=== PATIENT | female | born 1940 | race Two or more races ===

== ENCOUNTER 2017-07-29 15:37 | Inpatient (IN) | payer MEDICARE, OTHER ==
[2017-07-29] VITALS (16 sets, daily range): BP systolic 124–157; BP diastolic 44–96
[~2017-07-29] VITALS: Ht 160 cm; Wt 77.3 kg
--- NOTE | 2017-07-29 15:40 | NUR ---
PETER FROM [facility] DT SOB SINCE THIS AM. PATIENT RECEIVED CPAP, PER REPORT , PATIENT WAS SATING 70S ON ROOM AIR. PATIENT IN MILD DISTRESS. SKIN IS WARM TO TOUCH AND NON DIAPHORETIC. PATIENT IS AFEBRILE. VSS
--- NOTE | 2017-07-29 15:41 | NUR ---
MD ATWOOD AT
[2017-07-29] MEDS ORDERED: NITROGLYCERIN 0.4 MG/TAB BOTTLE SL ONE (16:00)
[2017-07-29] MEDS ORDERED: NTG 50 MG/D5W250 ML BOTTL 250 ML IV ONE ×2 (16:02→17:00)
[2017-07-29] MEDS ORDERED: NITROGLYCERIN 0.4 MG/TAB BOTTLE ONE (16:02)
--- NOTE | 2017-07-29 16:02 | NUR ---
R WRIST G 20 IV STARTED. BLOOD TESTS COLELCTED AND SEND TO LAB.
[2017-07-29 16:03] LABS: BASOPHILS # (AUTO) 0.2 /CMM (0.0-0.2); BASOPHILS % (AUTO) 2.2 % (0.0-2.0); EOSINOPHILS % (AUTO) 1.9 % (0.0-6.0); HEMATOCRIT 26 % (33-45); HEMOGLOBIN 8.5 g/dL (11.5-14.8); LYMPHOCYTES # (AUTO) 0.4 /CMM (0.8-4.8); LYMPHOCYTES % (AUTO) 3.5 % (20.0-44.0); MEAN CORPUSCULAR HGB CONC 33 g/dl (31.0-36.0); MEAN CORPUSCULAR VOLUME 91 fL (82-100); MONOCYTES # (AUTO) 0.9 /CMM (0.1-1.30); MONOCYTES % (AUTO) 8.3 % (2.0-12.0); NEUTROPHILS # (AUTO) 9.4 /CMM (1.8-8.9); NEUTROPHILS % (AUTO) 84.1 % (43.0-81.0); PLATELET COUNT (AUTO) 235 /CMM (150-450); RDW COEFFICIENT OF VARIATION 16.3 (11.5-15.0); RED BLOOD CELL COUNT(AUTO) 2.81 MIL/uL (4.0-5.2); WHITE BLOOD COUNT (AUTO) 11.1 K/uL (4.3-11.0)
[2017-07-29 16:15] LABS: INR 1.3 (0.85-1.15)
--- NOTE | 2017-07-29 16:15 | NUR ---
URINE SAMPLE COLLECTED FROM BRADSHAW AND SEND TO [facility]
[2017-07-29 16:21] LABS: TROPONIN I < 0.017 ng/mL (0.00-0.056)
[2017-07-29 16:27] LABS: APPEARANCE,URINE Clear (CLEAR); BILIRUBIN,URINE Negative (NEGATIVE); BLOOD, URINE Trace-intact Ery/uL (NEGATIVE); COLOR,URINE Yellow (YELLOW); KETONES,URINE Negative (NEGATIVE); LEUKOCYTE ESTERASE ,URINE Trace (NEGATIVE); NITRITE, URINE Negative (NEGATIVE); PROTEIN,URINE 100 mg/dl (NEGATIVE); UGLUCOSE 100 MG/DL mg/dL (NEGATIVE)
[2017-07-29 16:28] LABS: CHOLESTEROL 114 mg/dL (<200); HDL CHOLESTEROL 55 mg/dL (40-60); LDL 51 mg/dL (0-99); TRIGLYCERIDES 58 mg/dL (30-150)
[2017-07-29] MEDS ORDERED: ACET-868 PO (16:30)
[2017-07-29] MEDS ORDERED: BISA10SU8 RC (16:30)
[2017-07-29] MEDS ORDERED: CYCL30DR EACHEYE (16:30)
[2017-07-29] MEDS ORDERED: CLOP75TA15 PO (16:30)
[2017-07-29] MEDS ORDERED: APIX5TAB PO (16:30)
[2017-07-29] MEDS ORDERED: BIMA2.5D5 EACHEYE (16:30)
[2017-07-29] MEDS ORDERED: AMIO200T4 PO (16:30)
[2017-07-29] MEDS ORDERED: CHOL200026 PO (16:30)
[2017-07-29] MEDS ORDERED: ATOR40TA PO (16:30)
[2017-07-29] MEDS ORDERED: NA P133E RC (16:30)
[2017-07-29] MEDS ORDERED: INSU100V7 SQ (16:30)
[2017-07-29] MEDS ORDERED: PANT40TA2 PO (16:30)
[2017-07-29] MEDS ORDERED: ALLO300T2 PO (16:30)
[2017-07-29] MEDS ORDERED: FURO20TA4 PO (16:30)
[2017-07-29] MEDS ORDERED: CARV12.5 PO (16:30)
[2017-07-29] MEDS ORDERED: AMLO2.5T3 PO (16:30)
[2017-07-29] MEDS ORDERED: MAGN400O6 PO (16:30)
[2017-07-29] MEDS ORDERED: DOCU-141 PO (16:30)
[2017-07-29] MEDS ORDERED: LEVO50TA8 PO (16:30)
[2017-07-29] MEDS ORDERED: FERR325T23 PO (16:30)
[2017-07-29] MEDS ORDERED: POLY17PO4 PO (16:30)
[2017-07-29 16:32] LABS: BACTERIA,URINE Few /HPF (None Seen); SQUAMOUS EPITHELIAL CELL,UR Few /HPF (None Seen)
[2017-07-29 16:34] LABS: ALANINE AMINOTRANSFERASE 37 U/L (12-78); ALBUMIN 2.8 g/dL (3.4-5.0); ALKALINE PHOSPHATASE 133 U/L (46-116); ASPARTATE AMINOTRANSFERASE 31 U/L (15-37); B-TYPE NATRIURETIC PEPTIDE 7765 PG/ML (0-125); BILIRUBIN,TOTAL 0.4 mg/dL (0.2-1.0); CALCIUM, SERUM 9.2 mg/dL (8.5-10.1); CARBON DIOXIDE 31 mmol/L (21-32); CHLORIDE 94 mmol/L (98-107); CREATININE 1.7 mg/dL (0.6-1.3); GLUCOSE 320 mg/dL (74-106); MAGNESIUM 1.6 mg/dL (1.8-2.4); SODIUM SERUM 129 mmol/L (136-145); TOTAL PROTEIN, SERUM 7.3 g/dL (6.4-8.2); UREA NITROGEN, BLOOD 44 mg/dL (7-18)
[2017-07-29] MEDS ORDERED: FUROSEMIDE 40 MG/4 ML VIAL ONE (17:27)
[2017-07-29] MEDS ORDERED: FUROSEMIDE 40 MG/4 ML VIAL IV ONE (17:30)
[2017-07-29] MEDS ORDERED: ACETAMINOPHEN 650 MG/SUPP.RECT RC PRN (18:00)
[2017-07-29] MEDS ORDERED: ONDANSETRON HCL/PF 4 MG/2 ML VIAL IVP PRN (18:00)
[2017-07-29] MEDS ORDERED: ACETAMINOPHEN 325 MG TABLET PO PRN ×2 (18:00→20:00)
[2017-07-29] MEDS ORDERED: NOREPINEPHRINE 8 MG in IV D5W 500 ML IV PRN (18:00)
[2017-07-29] MEDS ORDERED: DEXTROSE 50%-WATER 50 ML DISP.SYRIN IV PRN (18:30)
[2017-07-29] MEDS: PANTOPRAZOLE 40 MG VIAL IV SCH (18:35)
--- NOTE | 2017-07-29 18:45 | NUR ---
RISK COMPLIANCE ANALYST RECEIVED PATIENT AWAKE FROM ER, POOR CONCENTRATION WITH ON GOING NITRO DIP RUNNING AT 100 MCGS AFEBRILE PLACED ON BIPAP ONCE TRANSFERRED TO BED CLEANED AND WASHED PATIENT PUT HER ON COMFORTABLE POSITION WITH BRADSHAW CATHETER DRAINING TO YELLOWISH URINE ADEQUATE IN AMOUNT ENDORSED
[2017-07-29] MEDS ORDERED: Magnesium 1GM/D5W 100ML PREMIX 100 ML IV SCH (19:00)
[2017-07-29] MEDS ORDERED: NTG 50 MG/D5W250 ML BOTTL 250 ML IV PRN (19:00)
--- NOTE | 2017-07-29 19:00 | NUR ---
RN INITIAL NOTES RECEIVED PT AWAKE ON BED, A/O X2. ON BIPAP WITH SETTINGS 15/5, RATE 12, FIO2 60%, SATURATING WELL, NO S/S OF RESP DISTRESS. CURRENTLY SR ON THE MONITOR, HR 60'S. BRADSHAW CATH IN PLACE. RIGHT WRIST 20G AND LEFT HAND 20G WITH NITRO DRIP @ 50MCG/MIN, IV LINES FLUSHED AND PATENT, NO S/S OF INFILTRATION/INFECTION, DRESSINGS CDI. BED LOW AND LOCKED, SIDERAILS UP, CALL LIGHT WITHIN REACH, BED ALARM ON. WILL MONITOR
[2017-07-29] MEDS ORDERED: CEFTRIAXONE 1 G in IV NS 0.9% 50 ML IV SCH (20:00)
[2017-07-29] MEDS ORDERED: BISACODYL SUPP (10 MG) 10 MG/SUPP.RECT SUPP.RECT RC PRN (20:00)
[2017-07-29] MEDS ORDERED: INSULIN GLARGINE, 100 UNIT/ML CARTRIDGE SQ ONE (20:18)
[2017-07-29] MEDS ORDERED: ALBUTEROL FS 2.5 MG/0.5 ML VIAL.NEB NEB PRN (21:00)
[2017-07-29] MEDS ORDERED: IPRATROPIUM NEB FS 0.5 MG/2.5 ML AMPUL.NEB NEB PRN (21:00)
--- NOTE | 2017-07-29 21:21 | NUR ---
RN NOTES CALLED ON-CALL SHARED SERVICES MANAGER TAYLOR IN REGARDS TO THE PATIENT'S CURRENT HEMATURIA. ALSO INFORMED HER OF CURRENT HGB 8.5, HCT 26, AND PATIENT'S ELIQUIS 5MG AND PLAVIX 75MG SCHEDULED FOR TOMORROW 0900. ALSO INFORMED HER OF PATIENT'S LOWER BACK PAIN. PER SHARED SERVICES MANAGER, SHE WILL D/C ELIQUIS AND PLAVIX, ORDER STOOL OB, NORCO 5-325 Q6H PRN, AND STAT CBC.
[2017-07-29] MEDS ORDERED: HYDROCODONE/APAP 5/325MG 1 EACH TABLET PO PRN (21:30)
[2017-07-29] MEDS ORDERED: PIPERACILLIN /TAZOBACTAM 2.25 G VIAL IV ONE (21:38)
[2017-07-29 21:45] LABS: BASOPHILS % (AUTO) 0.2 % (0.0-2.0); EOSINOPHILS % (AUTO) 1.9 % (0.0-6.0); HEMATOCRIT 24 % (33-45); HEMOGLOBIN 7.7 g/dL (11.5-14.8); LYMPHOCYTES # (AUTO) 0.6 /CMM (0.8-4.8); MEAN CORPUSCULAR HGB CONC 33 g/dl (31.0-36.0); MEAN CORPUSCULAR VOLUME 91 fL (82-100); MONOCYTES # (AUTO) 0.9 /CMM (0.1-1.30); MONOCYTES % (AUTO) 8.5 % (2.0-12.0); NEUTROPHILS # (AUTO) 9.4 /CMM (1.8-8.9); NEUTROPHILS % (AUTO) 84.4 % (43.0-81.0); PLATELET COUNT (AUTO) 219 /CMM (150-450); RDW COEFFICIENT OF VARIATION 16.6 (11.5-15.0); RED BLOOD CELL COUNT(AUTO) 2.58 MIL/uL (4.0-5.2); WHITE BLOOD COUNT (AUTO) 11.1 K/uL (4.3-11.0)
[2017-07-29] MEDS: PIPERACILLIN /TAZOBACTAM 2.25 G in IV NS 0.9% 50 ML IV SCH (21:52)
[2017-07-29] MEDS ORDERED: BIMATOPROST 2.5 ML DROPS OP SCH (22:00)
[2017-07-29] MEDS ORDERED: ZOLPIDEM TARTRATE 5 MG TABLET PO PRN (22:00)
[2017-07-29] MEDS ORDERED: FUROSEMIDE 20 MG/2 ML VIAL IV ONE (22:00)
--- NOTE | 2017-07-29 22:00 | NUR ---
RN NOTES NOTIFIED TEMPERATURE REGULATOR PYROMETER TAYLOR OF CURRENT HGB 7.7 AND HCT 24 DUE TO HEMATURIA. PER TEMPERATURE REGULATOR PYROMETER, TRANSFUSE 1 UNIT PRBC AND GIVE 20MG LASIX DURING TRANSFUSION. WILL OBTAIN CONSENT FROM THE PATIENT WELL
[2017-07-29] MEDS: BLOOD SUGAR DIAGNOSTIC 1 EACH STRIP VI SCH (22:11)
[2017-07-29] MEDS: *INSULIN REGULAR(HUMULIN R)HUM 100 UNIT/ML VIAL SQ PRN (22:12)
[2017-07-29] MEDS: ATORVASTATIN 40 MG TABLET PO SCH (22:12)
[2017-07-29] MEDS: INSULIN GLARGINE, 100 UNIT/ML CARTRIDGE SQ SCH (22:12)
[2017-07-29] MEDS: DOCUSATE SODIUM 100 MG CAPSULE PO SCH (22:13)
[2017-07-29 22:24] LABS: IRON, SERUM 14 ug/dl (50-175); TOTAL IRON BINDING CAPACITY 206 ug/dl (250-450)
[2017-07-30] VITALS (52 sets, daily range): BP systolic 108–169; BP diastolic 49–100
[2017-07-30] MEDS ORDERED: FUROSEMIDE 20 MG/2 ML VIAL IV ONE (02:30)
[2017-07-30] MEDS ORDERED: PIPERACILLIN /TAZOBACTAM 2.25 G VIAL IV ONE (04:17)
[2017-07-30] MEDS: PIPERACILLIN /TAZOBACTAM 2.25 G in IV NS 0.9% 50 ML IV SCH ×2 (04:20→12:03)
[2017-07-30 05:57] LABS: BASOPHILS % (AUTO) 0.1 % (0.0-2.0); EOSINOPHILS % (AUTO) 2.8 % (0.0-6.0); HEMATOCRIT 26 % (33-45); HEMOGLOBIN 8.4 g/dL (11.5-14.8); LYMPHOCYTES # (AUTO) 0.6 /CMM (0.8-4.8); LYMPHOCYTES % (AUTO) 6.4 % (20.0-44.0); MEAN CORPUSCULAR HGB CONC 32 g/dl (31.0-36.0); MEAN CORPUSCULAR VOLUME 90 fL (82-100); MONOCYTES # (AUTO) 0.8 /CMM (0.1-1.30); NEUTROPHILS # (AUTO) 8.2 /CMM (1.8-8.9); NEUTROPHILS % (AUTO) 82.7 % (43.0-81.0); PLATELET COUNT (AUTO) 209 /CMM (150-450); RDW COEFFICIENT OF VARIATION 19.5 (11.5-15.0); RED BLOOD CELL COUNT(AUTO) 2.91 MIL/uL (4.0-5.2); WHITE BLOOD COUNT (AUTO) 9.9 K/uL (4.3-11.0)
--- NOTE | 2017-07-30 06:00 | NUR ---
RN CLOSING NOTES PT REMAINS STABLE OF THE MOMENT. ALL DUE MEDS GIVEN, AM CARE PROVIDED. WILL ENDORSE BHARATH TO AM RN
[2017-07-30 06:33] LABS: ALANINE AMINOTRANSFERASE 38 U/L (12-78); ALBUMIN 2.6 g/dL (3.4-5.0); ALKALINE PHOSPHATASE 114 U/L (46-116); ASPARTATE AMINOTRANSFERASE 33 U/L (15-37); CALCIUM, SERUM 9.3 mg/dL (8.5-10.1); CARBON DIOXIDE 31 mmol/L (21-32); CHLORIDE 96 mmol/L (98-107); CREATININE 1.6 mg/dL (0.6-1.3); GLUCOSE 127 mg/dL (74-106); MAGNESIUM 1.9 mg/dL (1.8-2.4); POTASSIUM 4.6 mmol/L (3.5-5.1); SODIUM SERUM 131 mmol/L (136-145); TOTAL PROTEIN, SERUM 6.9 g/dL (6.4-8.2); UREA NITROGEN, BLOOD 41 mg/dL (7-18)
[2017-07-30 06:38] LABS: IRON, SERUM 25 ug/dl (50-175); TOTAL IRON BINDING CAPACITY 213 ug/dl (250-450)
[2017-07-30 06:42] LABS: CHOLESTEROL 102 mg/dL (<200); FERRITIN 258 ng/mL (8-388); HDL CHOLESTEROL 58 mg/dL (40-60); LDL 45 mg/dL (0-99); TRIGLYCERIDES 40 mg/dL (30-150)
--- NOTE | 2017-07-30 07:10 | NUR ---
RN INITIAL NOTES RECEIVED PT AWAKE, A/OX4, TAMAZIGHT SPEAKING. ON BIPAP. NO RESPIRATORY DISTRESS NOTED. NO SOB NOTED. NO SIGNS OF PAIN NOTED. IV LINES IN PLACE. ON NITRO DRIP AT 20MCG/MIN. FC IN PLACE. HEMATURIA NOTED. PT COMFORTABLE. CALL LIGHT WITHIN REACH. WILL MONITOR.
--- NOTE | 2017-07-30 07:31 | NUR ---
PATIENT REMOVED FROM BIPAP AND PLACED ON 12L SIMPLE MASK. PATIENT AWAKE, ALERT, NO SOB AT THIS TIME. WILL MONITOR CLOSELY
--- NOTE | 2017-07-30 08:05 | NUR ---
RN NOTES SEEN AND EXAMINED BY DR. LEONARDO. PT ON AT 5LPM VIA AK. HOB ELEVATED. REVIEWED H&P, CURRENT LAB VALUES AND CXR RESULT. PT ON NITRO DRIP. REVIEWED MEDS WITH NEW ORDERS MADE. AWAITING FOR ECHO. WILL CONTINUE TO MONITOR.
[2017-07-30] MEDS: PANTOPRAZOLE 40 MG VIAL IV SCH (08:14)
[2017-07-30] MEDS: AMIODARONE HCL 200 MG TABLET PO SCH (08:14)
[2017-07-30] MEDS: FUROSEMIDE 100 MG/10 ML VIAL IV SCH ×3 (08:14→17:14)
[2017-07-30] MEDS: AMLODIPINE BESYLATE 2.5 MG TABLET PO SCH (08:14)
[2017-07-30] MEDS: CHOLECALCIFEROL 1,000 UNIT TABLET (VIT D3) PO SCH (08:14)
[2017-07-30] MEDS: ALLOPURINOL 100 MG TABLET PO SCH (08:15)
[2017-07-30] MEDS: LEVOTHYROXINE SODIUM 50 MCG TABLET PO SCH (08:16)
[2017-07-30] MEDS: BLOOD SUGAR DIAGNOSTIC 1 EACH STRIP VI SCH ×4 (08:17→21:06)
[2017-07-30] MEDS ORDERED: FUROSEMIDE 20 MG TABLET PO SCH (09:00)
[2017-07-30] MEDS ORDERED: CARVEDILOL 12.5 MG TABLET PO SCH (09:00)
[2017-07-30] MEDS ORDERED: APIXABAN 5 MG TABLET PO SCH (09:00)
[2017-07-30] MEDS ORDERED: FERROUS SULFATE (325 MG) 325 MG/TAB TABLET PO SCH (09:00)
[2017-07-30] MEDS ORDERED: CLOPIDOGREL BISULFATE 75 MG TABLET PO SCH (09:00)
--- NOTE | 2017-07-30 09:30 | NUR ---
RN NOTES SEEN AND EXAMINED BY DR. ESTRELLA. PT ON NON-REBREATHER. PT UNABLE TO TOLERATE 02 AT 5LPM VIA NC DUE TO SOB. KEPT HOB ELEVATED. AWARE OF H&P, CURRENT LAB VALUES AND CXR RESULT. WILL CALL [place] TO OBTAIN LAST CXR RESULT. WILL CONTINUE TO MONITOR.
--- NOTE | 2017-07-30 10:00 | NUR ---
RN NOTES ABG DONE. RESULT RELAYED TO DR. ESTRELLA. PT REQUESTED TO BE PLACED BACK ON BIPAP DUE TO SOB. KEPT HOB ELEVATED. WILL TITRATE FI02 NEEDED. WILL CONTINUE TO MONITOR.
[2017-07-30 10:11] LABS: ABG BASE EXCESS 4.2 mmol/L; ABG OXYGEN SATURATION 97.1 % (92.0-98.5); ABG PCO2 53.7 mmHg (35.0-45.0); ABG PO2 104.9 mmHg (75.0-100.0); AaDO2 445.4 mmHg; COHb 0.9 % (0.5-1.5); MetHb 0.5 % (0.0-1.5); O2Hb 95.7 % (94.0-97.0); SITE, ABG Right Brachial; VENT MODE, BG 15L NRB MASK
[2017-07-30] MEDS: INSULIN REGULAR, HUMAN 100 UNIT/ML 3 ML VIAL SQ PRN ×2 (12:32→17:21)
[2017-07-30] MEDS: SOD FERRIC GLUC 125 MG in IV NS 0.9% 100 ML IV SCH (13:47)
--- NOTE | 2017-07-30 14:00 | NUR ---
RN NOTES SEEN AND EXAMINED Y DR. SLAUGHTER. REVIEWED CURRENT LAB VALUES AND CXR RESULT. REVIEWED CURRENT MEDS WITH ORDERS MADE. PT AFEBRILE. WILL CONTINUE TO MONITOR.
--- NOTE | 2017-07-30 14:00 | NUR ---
RN NOTES SEEN AND EXAMINED BY CORY RAZA NP. PT A/OX3-4. PT ON AND OFF BIPAP. DENIES ANY PAIN. DENIES SOB. HAND WRAPPER OPERATOR AWARE OF CURRENT LAB VALUES: WBC 9.9, HGB 8.4, HCT 26, PLATELET 209. PT WITH FC, HEMATURIA NOTED. TRANSFUSED 1 UNIT OF PRBC LAST NIGHT. BUN 41, CREA 1.6. BERTA FOR OB TO BE COLLECTED. WILL CONTINUE TO MONITOR
[2017-07-30] MEDS ORDERED: FUROSEMIDE 100 MG/10 ML VIAL IV SCH (17:30)
--- NOTE | 2017-07-30 19:00 | NUR ---
RN CLOSING NOTES PT REMAINS A/OX3-4. PT ON BIPAP. NO SOB NOTED. KEPT HOB ELEVATED. DENIES ANY PAIN. IV LINES IN PLACE. FC IN PLACE, STILL WITH HEMATURIA. KEPT PT CLEAN AND DRY. ASSISTED ON REPOSITIONING. BLE ELEVATED. WILL ENDORSE FOR CONTINUITY OF CARE.
--- NOTE | 2017-07-30 19:00 | NUR ---
RN INITIAL NOTES RECEIVED PT AWAKE ON BED, A/O X3. ON BIPAP WITH SETTINGS 15/5, RATE 12, FIO2 60%, SATURATING WELL, NO S/S OF RESP DISTRESS. CURRENTLY SR ON THE MONITOR, HR 60'S. BRADSHAW CATH IN PLACE, HEMATURIA NOTED. RIGHT WRIST 20G AND LEFT HAND 20G, IV LINES FLUSHED AND PATENT, NO S/S OF INFILTRATION/INFECTION, DRESSINGS CDI. BED LOW AND LOCKED, SIDERAILS UP, CALL LIGHT WITHIN REACH, BED ALARM ON. WILL MONITOR
--- NOTE | 2017-07-30 20:10 | NUR ---
PT RECEIVED ON BIPAP NO RESP DISTRESS. TOLERATING SETTINGS. MEPILEX IN PLACE, SKIN INTACT NO REDNESS. ALARMS SET AND AUDIBLE. WILL CONTINUE TO MONITOR. Addendum: 07/30/17 at 2012 by FELIX BUENO RT Amended: Links added.
[2017-07-30] MEDS: *INSULIN REGULAR(HUMULIN R)HUM 100 UNIT/ML VIAL SQ PRN (21:07)
[2017-07-30] MEDS: DOCUSATE SODIUM 100 MG CAPSULE PO SCH (21:08)
[2017-07-30] MEDS: LATANOPROST EYE DROP 0.005% 2.5 ML BOTTLE OP SCH (21:08)
[2017-07-30] MEDS: ATORVASTATIN 40 MG TABLET PO SCH (21:08)
[2017-07-30] MEDS: INSULIN GLARGINE, 100 UNIT/ML CARTRIDGE SQ SCH (21:08)
[2017-07-31] VITALS (51 sets, daily range): BP systolic 109–156; BP diastolic 29–104
[2017-07-31 04:54] LABS: EOSINOPHILS % (AUTO) 2.5 % (0.0-6.0); HEMATOCRIT 26 % (33-45); HEMOGLOBIN 8.6 g/dL (11.5-14.8); LYMPHOCYTES # (AUTO) 0.6 /CMM (0.8-4.8); LYMPHOCYTES % (AUTO) 5.3 % (20.0-44.0); MEAN CORPUSCULAR HGB CONC 33 g/dl (31.0-36.0); MEAN CORPUSCULAR VOLUME 89 fL (82-100); MONOCYTES # (AUTO) 0.9 /CMM (0.1-1.30); MONOCYTES % (AUTO) 8.4 % (2.0-12.0); NEUTROPHILS # (AUTO) 8.8 /CMM (1.8-8.9); NEUTROPHILS % (AUTO) 83.8 % (43.0-81.0); PLATELET COUNT (AUTO) 221 /CMM (150-450); RED BLOOD CELL COUNT(AUTO) 2.89 MIL/uL (4.0-5.2); WHITE BLOOD COUNT (AUTO) 10.5 K/uL (4.3-11.0)
[2017-07-31 05:14] LABS: TROPONIN I < 0.017 ng/mL (0.00-0.056)
[2017-07-31 05:18] LABS: ALANINE AMINOTRANSFERASE 42 U/L (12-78); ALBUMIN 2.5 g/dL (3.4-5.0); ALKALINE PHOSPHATASE 142 U/L (46-116); ASPARTATE AMINOTRANSFERASE 33 U/L (15-37); BILIRUBIN,TOTAL 0.7 mg/dL (0.2-1.0); CALCIUM, SERUM 9.5 mg/dL (8.5-10.1); CARBON DIOXIDE 32 mmol/L (21-32); CHLORIDE 96 mmol/L (98-107); CREATININE 1.8 mg/dL (0.6-1.3); GLUCOSE 120 mg/dL (74-106); MAGNESIUM 1.9 mg/dL (1.8-2.4); PHOSPHORUS 4.5 mg/dL (2.5-4.9); POTASSIUM 3.9 mmol/L (3.5-5.1); SODIUM SERUM 134 mmol/L (136-145); TOTAL PROTEIN, SERUM 6.7 g/dL (6.4-8.2); UREA NITROGEN, BLOOD 50 mg/dL (7-18)
--- NOTE | 2017-07-31 06:20 | NUR ---
RN CLOSING NOTES PT REMAINS STABLE OF THE MOMENT. ALL DUE MEDS GIVEN, AM CARE PROVIDED. WILL ENDORSE BHARATH TO AM RN
--- NOTE | 2017-07-31 08:15 | NUR ---
Pt aox3, vss, denies chest pain. Now off Bipap on non-rebreather for breakfast. Pt able to feed herself, no signs and symptoms of aspiration.
[2017-07-31] MEDS: PANTOPRAZOLE 40 MG VIAL IV SCH (08:23)
[2017-07-31] MEDS: BLOOD SUGAR DIAGNOSTIC 1 EACH STRIP VI SCH ×4 (08:23→21:51)
[2017-07-31] MEDS: ALLOPURINOL 100 MG TABLET PO SCH (08:24)
[2017-07-31] MEDS: LEVOTHYROXINE SODIUM 50 MCG TABLET PO SCH (08:24)
[2017-07-31] MEDS: METOLAZONE 2.5 MG TABLET PO SCH (08:24)
[2017-07-31] MEDS: CHOLECALCIFEROL 1,000 UNIT TABLET (VIT D3) PO SCH (08:24)
[2017-07-31] MEDS: AMIODARONE HCL 200 MG TABLET PO SCH (08:25)
[2017-07-31] MEDS: AMLODIPINE BESYLATE 2.5 MG TABLET PO SCH (08:25)
[2017-07-31] MEDS ORDERED: BUMETANIDE INJ 16 MG in IV NS 0.9% 16 ML IV ONE (09:00)
[2017-07-31] MEDS: *INSULIN REGULAR(HUMULIN R)HUM 100 UNIT/ML VIAL SQ PRN ×3 (11:49→21:56)
--- NOTE | 2017-07-31 13:00 | NUR ---
Og Eason here to see pt. plan EGD tomorrow. orders placed in [facility].
[2017-07-31] MEDS: SOD FERRIC GLUC 125 MG in IV NS 0.9% 100 ML IV SCH (13:58)
--- NOTE | 2017-07-31 14:00 | NUR ---
pt complains of no stool and also nausia after lunch. Medicated as ordered.
--- NOTE | 2017-07-31 15:28 | NUR ---
pt remained on non rebreather since 814, now sat 90-91, rr 35. althought pt denies symptoms of SOB. Pt placed back on Bipap with previous settings. now sat 95-97.
[2017-07-31] MEDS ORDERED: MAGNESIUM HYDROXIDE 30 ML UDC PO PRN (15:30)
--- NOTE | 2017-07-31 15:30 | NUR ---
Dr. Gibson here to see pt, plans for EGD discussed. Given the xray this am and clinical presentation Dr. Gibson feels it is not safe to priced with EGD at this time. Yumi Foley notified, She stated it is ok to cancel procedure.
[2017-07-31] MEDS ORDERED: VANCOMYCIN 1 GM in IV D5W 250 ML IV ONE (16:00)
--- NOTE | 2017-07-31 16:00 | NUR ---
BIPAP SETTINGS CHANGED TO 20/10 PS 10 100% WILL OBTAIN ABG IN 30 MIN.
[2017-07-31] MEDS ORDERED: FEE PK DOSING 1 MIN EA MC ONE (16:10)
--- NOTE | 2017-07-31 16:30 | NUR ---
ABG RESULT REPORTED TO DR ESTRELLA. LILIAM TO CONTINUE ON NEW SETTING OVERNIGHT.
[2017-07-31 16:37] LABS: ABG PCO2 52.7 mmHg (35.0-45.0); ABG PH 7.411 (7.350-7.450); ABG PO2 76.8 mmHg (75.0-100.0); AaDO2 583.5 mmHg; COHb 0.7 % (0.5-1.5); MetHb 0.2 % (0.0-1.5); O2Hb 93.2 % (94.0-97.0); SITE, ABG Left Radial; VENT MODE, BG bipap 20/10 ps 10
[2017-07-31] MEDS ORDERED: VANCOMYCIN 0.75 GM in IV NS 0.9% 250 ML IV SCH (17:00)
--- NOTE | 2017-07-31 17:00 | NUR ---
DR SLAUGHTER PAGED VIA OFFICE NUMBER PER DR ESTRELLA ORDERS.
--- NOTE | 2017-07-31 17:59 | NUR ---
RT END OF THE SHIFT REPORT, PT. 77 Y OLD FEMALE REMAIN ON BIPAP WITH NOTED SETTINGS. (IPAP/EPAP 20/10, RR12, FIO2 100% PS 10) T/O DAY FROM @0815 OFF BIPAP AND PLACED BACK ON BIPAP @1415 PM BIPAP CHANGES PER DR. ESTRELLA AT THE BEDSIDE. @ 1550 PT REMAIN STABLE. ABG DONE NO CHANGES POST ABG. BIPAP ALARMS ARE SET AND AUDIBLE WITH AMBU BAG AT THE BEDSIDE. BIPAP IS PLUGGED INTO RED OUTLET. B/S BILATERALLY RALES EQUAL CHEST RISE NOTED. WILL CONTINUE TO MONITOR. REPORT WILL BE PASS TO PM SHIFT. Addendum: 07/31/17 at 1802 by JOHN GORMAN RT Amended: Links added.
--- NOTE | 2017-07-31 18:00 | NUR ---
SON AT BEDSIDE. UPDATED ON PT PROGRESS. PT MEDICATED FOR CONSTIPATION.
[2017-07-31] MEDS: MEROPENEM 500 MG in IV NS 0.9% 50 ML IV SCH (18:54)
--- NOTE | 2017-07-31 18:58 | NUR ---
STILL AWATING THE CALL BACK FROM DR SLAUGHTER, DR ESTRELLA UPDATED ON PT PROGRESS. OK TO GIVE ANTIBIOTICS WITHOUT DR SLAUGHTER'S OK.
--- NOTE | 2017-07-31 19:30 | NUR ---
ROCIO TAVERAS NOTES RECEIVED PATIENT FROM DAY SHIFT. PATIENT IS CONNECTED TO MONITOR AND BIPAP. TOLERATED WELL. PATIENT IS ON BRADSHAW CATHETER 16F WITH HARMAN URINE OUTPUT. WITH IV HEPLOCK ON LEFT HAND AND RIGHT WRIST. PATIENT IS ALERT AND ORIENTED /MALAYSIAN SPEAKING
--- NOTE | 2017-07-31 20:11 | NUR ---
PT RECEIVED ON BIPAP 19/01, 12, 100%. O2 SAT 88%. CHANGED MASK TO UTN SMALL. PT MORE COMFORTABLE, MINIMAL LEAK. O2 SAT WENT UP TO 95%. WILL CONTINUE TO MONITOR. Addendum: 07/31/17 at 2016 by FELIX BUENO RT Amended: Links added.
[2017-07-31] MEDS: VANCOMYCIN 0.75 GM in IV NS 0.9% 250 ML IV SCH (21:25)
[2017-07-31] MEDS: DOCUSATE SODIUM 100 MG CAPSULE PO SCH (21:33)
[2017-07-31] MEDS: LATANOPROST EYE DROP 0.005% 2.5 ML BOTTLE OP SCH (21:33)
[2017-07-31] MEDS: INSULIN GLARGINE, 100 UNIT/ML CARTRIDGE SQ SCH (21:55)
[2017-08-01] VITALS (38 sets, daily range): BP systolic 122–179; BP diastolic 53–88
--- NOTE | 2017-08-01 | NUR ---
RN NOTES. PATIENT CONNECTED TO MONITOR AND BIPAP. NO SIGNS OF DISTRESS AT THIS TIME.
[2017-08-01 01:25] LABS: OCCULT BLOOD STOOL NEGATIVE (NEGATIVE)
[2017-08-01 04:21] LABS: EOSINOPHILS % (AUTO) 1.9 % (0.0-6.0); HEMATOCRIT 26 % (33-45); HEMOGLOBIN 8.5 g/dL (11.5-14.8); LYMPHOCYTES # (AUTO) 0.6 /CMM (0.8-4.8); MEAN CORPUSCULAR HGB CONC 33 g/dl (31.0-36.0); MEAN CORPUSCULAR VOLUME 89 fL (82-100); MONOCYTES # (AUTO) 0.3 /CMM (0.1-1.30); MONOCYTES % (AUTO) 3.2 % (2.0-12.0); NEUTROPHILS % (AUTO) 88.9 % (43.0-81.0); PLATELET COUNT (AUTO) 255 /CMM (150-450); RDW COEFFICIENT OF VARIATION 18.5 (11.5-15.0); RED BLOOD CELL COUNT(AUTO) 2.91 MIL/uL (4.0-5.2); WHITE BLOOD COUNT (AUTO) 10.1 K/uL (4.3-11.0)
[2017-08-01] MEDS: MEROPENEM 500 MG in IV NS 0.9% 50 ML IV SCH ×2 (04:28→17:10)
[2017-08-01 05:36] LABS: ALANINE AMINOTRANSFERASE 43 U/L (12-78); ALBUMIN 2.5 g/dL (3.4-5.0); ALKALINE PHOSPHATASE 150 U/L (46-116); ASPARTATE AMINOTRANSFERASE 39 U/L (15-37); BILIRUBIN,TOTAL 0.8 mg/dL (0.2-1.0); CALCIUM, SERUM 9.7 mg/dL (8.5-10.1); CARBON DIOXIDE 34 mmol/L (21-32); CHLORIDE 95 mmol/L (98-107); CREATININE 1.8 mg/dL (0.6-1.3); GLUCOSE 56 mg/dL (74-106); MAGNESIUM 1.7 mg/dL (1.8-2.4); PHOSPHORUS 4.2 mg/dL (2.5-4.9); POTASSIUM 3.3 mmol/L (3.5-5.1); SODIUM SERUM 135 mmol/L (136-145); TOTAL PROTEIN, SERUM 6.9 g/dL (6.4-8.2); UREA NITROGEN, BLOOD 53 mg/dL (7-18)
--- NOTE | 2017-08-01 07:30 | NUR ---
RN NOTES RECEIVED PATIENT IN BED ON BIPAP WITH BREATHING NORMAL, EVEN AND UNLABORED. NO SOB NOTED. NO ACUTE DISTRESS NOTED. TELE MONITOR REVEALS SR, HR=64. IV L HAND AND R WRIST ARE PATENT AND INTACT, NO INFILTRATION NOTED. BOWEL SOUND PRESENT. SAFETY MEASURE OBSERVED. CALL LIGHT WITH IN REACH. WILL CONT TO MONITOR.
[2017-08-01] MEDS: PANTOPRAZOLE 40 MG VIAL IV SCH (08:12)
[2017-08-01] MEDS: Magnesium 1GM/D5W 100ML PREMIX 100 ML IV SCH ×2 (08:12→09:33)
--- NOTE | 2017-08-01 08:15 | NUR ---
RN NOTES PATIENT NOTED WITH BS=32, REPEAT TEST=36. DEXTROSE 50% IV GIVEN. DR ESTRELLA MADE AWARE WITH ORDER TO START PATIENT ON D5NS @40CC/HR. ORDER NOTED AND CARRIED OUT. WILL CONT TO MONITOR.
[2017-08-01] MEDS: BLOOD SUGAR DIAGNOSTIC 1 EACH STRIP VI SCH (08:19)
--- NOTE | 2017-08-01 08:53 | NUR ---
RN NOTES RECHECKED MF=264. WILL CONT TO MONITOR.
[2017-08-01 09:14] LABS: ABG BASE EXCESS 10.4 mmol/L; ABG OXYGEN SATURATION 85.8 % (92.0-98.5); ABG PCO2 58.7 mmHg (35.0-45.0); ABG PH 7.413 (7.350-7.450); ABG PO2 51.3 mmHg (75.0-100.0); COHb 0.5 % (0.5-1.5); MetHb 0.2 % (0.0-1.5); O2Hb 85.2 % (94.0-97.0); SITE, ABG Right Brachial; VENT MODE, BG ST 20/10 R12
--- NOTE | 2017-08-01 09:20 | NUR ---
RN NOTES RECEIVED ORDER OF SOLU [id number] MG IVPX1 BY DR ESTRELLA. ORDER NOTED AND CARRIED OUT. WILL CONT TO MONITOR.
--- NOTE | 2017-08-01 09:28 | NUR ---
RN NOTES PATIENT ORALLY INTUBATED BY ER DOCTOR ANGELIC. ETT 7.5 SECURED AT 21CM AT THE LIP. PLACED ON [facility] VENT WITH SETTING SET ORDERED BY DR ESTRELLA. WILL CONT TO MONITOR.
--- NOTE | 2017-08-01 09:30 | NUR ---
RT PATIENT ORALLY INTUBATED BY ER DOCTOR ANGELIC. ETT 7.5 SECURED AT 21CM AT THE LIP VIA ANCHOR FAST. POSITIVE CO2 DETECTOR COLOR CHANGE. BILAT BREATH SOUNDS HEARD. BILAT CHEST RISE NOTED. PLACED ON [facility] VENT WITH SETTINGS SET BY DR ESTRELLA. VENT ALARMS CHECKED + AUDIBLE. CUFF PRESSURE CHECKED FOOTWEAR PRODUCTION MACHINE OPERATOR. SUCTIONED WITH SMALL AMT OF PALE SEMITHICK SECRETIONS. AMBU BAG AT HOB Addendum: 08/01/17 at 1010 by ALVINO HOWE RT Amended: Links added.
[2017-08-01] MEDS ORDERED: IV D5/ 0.9% NACL 1,000 ML IV SCH (10:00)
[2017-08-01] MEDS ORDERED: methylPREDNISolone SOD SUCC 125 MG/2ML VIAL IV ONE (10:00)
[2017-08-01] MEDS ORDERED: DEXTROSE 50%-WATER 50 ML DISP.SYRIN IV PRN (10:00)
[2017-08-01] MEDS: PROPOFOL 100 ML IV PRN (10:29)
--- NOTE | 2017-08-01 10:29 | NUR ---
RN NOTES PATIENT STARTED ON DIPRIVAN DRIP AT 5MCG/KG/MIN PER PROTOCOL. TOLERATED WELL. WILL CONT TO MONITOR.
--- NOTE | 2017-08-01 10:30 | NUR ---
RN NOTES NOTIFIED LUPE REES THAT PATIENT BP IS 193/75 WITH NNO.
[2017-08-01] MEDS: LEVOTHYROXINE SODIUM 50 MCG TABLET PO SCH (10:40)
[2017-08-01] MEDS: AMLODIPINE BESYLATE 2.5 MG TABLET PO SCH (10:41)
[2017-08-01] MEDS: AMIODARONE HCL 200 MG TABLET PO SCH (10:41)
[2017-08-01] MEDS: METOLAZONE 2.5 MG TABLET PO SCH (10:41)
[2017-08-01] MEDS: ALLOPURINOL 100 MG TABLET PO SCH (10:42)
[2017-08-01] MEDS: CHOLECALCIFEROL 1,000 UNIT TABLET (VIT D3) PO SCH (10:44)
--- NOTE | 2017-08-01 10:53 | NUR ---
RN NOTES RECEIVED ORDER OF PICC LINE BY LUPE REES. UPDATED GIVEN, WILL CONT TO MONITOR.
[2017-08-01] MEDS ORDERED: POTASSIUM CHLORIDE 10 MEQ TABLET.SA PO ONE (12:00)
[2017-08-01 12:03] LABS: ABG BASE EXCESS 11.7 mmol/L; ABG OXYGEN SATURATION 98.5 % (92.0-98.5); ABG PCO2 45.1 mmHg (35.0-45.0); ABG PH 7.518 (7.350-7.450); ABG PO2 148.1 mmHg (75.0-100.0); AaDO2 519.8 mmHg; COHb 0.5 % (0.5-1.5); MetHb 0.7 % (0.0-1.5); O2Hb 97.3 % (94.0-97.0); SITE, ABG Left Radial; VENT MODE, BG AC/PRVC; VT, ABG 450 mL
[2017-08-01] MEDS ORDERED: POTASSIUM CHLORIDE 20 MEQ POWDER PACKET GT SCH (12:30)
[2017-08-01] MEDS: BLOOD SUGAR DIAGNOSTIC 1 EACH STRIP IN SCH ×3 (12:34→23:52)
--- NOTE | 2017-08-01 13:37 | NUR ---
POST ABG RESULTS VT DECREASED TO 400, FIO2 TITRATED TO 80% Addendum: 08/01/17 at 1337 by ALVINO HOWE RT Amended: Links added.
[2017-08-01] MEDS ORDERED: methylPREDNISolone SOD SUCC 125 MG/2ML VIAL IV SCH (14:00)
[2017-08-01] MEDS: SOD FERRIC GLUC 125 MG in IV NS 0.9% 100 ML IV SCH (15:00)
[2017-08-01] MEDS ORDERED: ETOMIDATE 2 MG/ML VIAL IV ONE (16:54)
[2017-08-01] MEDS ORDERED: ROCURONIUM BROMIDE 50 MG/5 ML IV ONE (16:54)
[2017-08-01] MEDS: methylPREDNISolone SOD SUCC 125 MG/2ML VIAL IV SCH ×2 (17:10→21:09)
[2017-08-01] MEDS: INSULIN REGULAR, HUMAN 100 UNIT/ML 3 ML VIAL SQ PRN ×2 (17:33→23:54)
--- NOTE | 2017-08-01 19:09 | NUR ---
RN NOTES PATIENT ENDORSED TO NEXT SHIFT IN STABLE CONDITION FOR CONTINUITY OF CARE. WILL CONT TO MONITOR.
--- NOTE | 2017-08-01 19:30 | NUR ---
GLUE MIXER: RECEIVED S/P ORALLY INTUBATED PT WT VENT SETTINGS ORDERED. NO ACUTE DISTRESS, NO EVIDENCE OF DISCOMFORT. SEDATED ON DIPRIVAN AT 10MCG/KG/MIN, ABLE TO OPEN EYES WHEN CALLED BY NAME OR TOUCHED AND FOLLOW SIMPLE COMMANDS. A. PACING ON STREETCAR MOTORMAN. AFEBRILE. OGT CLAMPED AT THIS TIME. F/C PATENT AND INTACT DRAINING PINK TINGED TO TEA COLORED URINE TO GRAVITY. JOSE PICC, LH AND RW IV SITES WT NO S/S OF COMPLICATIONS. HOB AT 35 DEGREES. SAFETY PRECAUTION NOTED.
--- NOTE | 2017-08-01 19:49 | NUR ---
PT RECEIVED ORALLY INTUBATED 7.5 ETT SECURED AT 22 CM AT THE LIP. PT TOLERATING VENT SETTINGS. NO RESP DISTRESS NOTED AT THIS TIME. SX'D SMALL AMT OF PALE YELLOW THICK SECRETIONS. VENT ALARMS SET AND AUDIBLE. AMBU BAG AT BEDSIDE. ETT CUFF ASSOCIATE ENGINEER. VENT PLUGGED INTO RED OUTLET. WILL CONTINUE TO MONITOR.
[2017-08-01] MEDS ORDERED: PHARMACY TO CHANGE PO MEDS TO GT/NG XX PRN (20:30)
[2017-08-01] MEDS ORDERED: AMLODIPINE BESYLATE 2.5 MG TABLET GT SCH (20:32)
[2017-08-01] MEDS ORDERED: MAGNESIUM HYDROXIDE 30 ML UDC GT PRN (20:37)
[2017-08-01] MEDS: VANCOMYCIN 0.75 GM in IV NS 0.9% 250 ML IV SCH (20:53)
[2017-08-01] MEDS ORDERED: ACETAMINOPHEN 650 MG/20.3 ML UDC GT PRN (21:00)
[2017-08-01] MEDS: DOCUSATE SODIUM LIQ 100 MG/10 ML UDC GT SCH (21:25)
[2017-08-01] MEDS: IV NS 0.9% 100 ML IV PRN (21:29)
[2017-08-01] MEDS: LATANOPROST EYE DROP 0.005% 2.5 ML BOTTLE OP SCH (21:52)
[2017-08-02] VITALS (36 sets, daily range): BP systolic 116–143; BP diastolic 47–59
[2017-08-02 04:39] LABS: HEMATOCRIT 27 % (33-45); HEMOGLOBIN 8.7 g/dL (11.5-14.8); LYMPHOCYTES # (AUTO) 0.2 /CMM (0.8-4.8); LYMPHOCYTES % (AUTO) 1.8 % (20.0-44.0); MEAN CORPUSCULAR HGB CONC 32 g/dl (31.0-36.0); MEAN CORPUSCULAR VOLUME 91 fL (82-100); MONOCYTES # (AUTO) 0.2 /CMM (0.1-1.30); MONOCYTES % (AUTO) 1.8 % (2.0-12.0); NEUTROPHILS # (AUTO) 10.4 /CMM (1.8-8.9); NEUTROPHILS % (AUTO) 96.4 % (43.0-81.0); PLATELET COUNT (AUTO) 275 /CMM (150-450); RDW COEFFICIENT OF VARIATION 18.1 (11.5-15.0); RED BLOOD CELL COUNT(AUTO) 2.99 MIL/uL (4.0-5.2); WHITE BLOOD COUNT (AUTO) 10.8 K/uL (4.3-11.0)
[2017-08-02 04:43] LABS: CALCIUM, SERUM 9.8 mg/dL (8.5-10.1); CARBON DIOXIDE 34 mmol/L (21-32); CHLORIDE 94 mmol/L (98-107); CREATININE 1.8 mg/dL (0.6-1.3); GLUCOSE 184 mg/dL (74-106); MAGNESIUM 2.5 mg/dL (1.8-2.4); PHOSPHORUS 4.7 mg/dL (2.5-4.9); POTASSIUM 3.2 mmol/L (3.5-5.1); SODIUM SERUM 136 mmol/L (136-145); UREA NITROGEN, BLOOD 56 mg/dL (7-18)
[2017-08-02] MEDS: MEROPENEM 500 MG in IV NS 0.9% 50 ML IV SCH ×2 (05:27→16:41)
[2017-08-02] MEDS: methylPREDNISolone SOD SUCC 125 MG/2ML VIAL IV SCH ×3 (05:28→21:56)
[2017-08-02] MEDS: PROPOFOL 100 ML IV PRN ×3 (05:31→13:33)
[2017-08-02] MEDS: BLOOD SUGAR DIAGNOSTIC 1 EACH STRIP IN SCH ×4 (05:35→23:18)
[2017-08-02] MEDS: INSULIN REGULAR, HUMAN 100 UNIT/ML 3 ML VIAL SQ PRN ×5 (05:37→23:20)
--- NOTE | 2017-08-02 06:20 | NUR ---
LOUVER MORTISER OPERATOR: STILL ON DIPRIVAN AT 10MCG/KG/MIN. ABLE TO FOLLOW SIMPLE COMMANDS. 02 SAT 94% AND ABOVE. SR ON RECONCILIATION MACHINE OPERATOR. TOTAL URINE RPYCOD=815CW TEA COLORED WT PINK TINGED URINE. HOB AT 35 DEGREES. SAFETY PRECAUTION NOTED AT ALL TIMES.
--- NOTE | 2017-08-02 07:33 | NUR ---
Intubated pt received on mechanical vent. Pt 7.5 ETT secured at 22cm@ the lip. Vent is plugged into a ret outlet, alarms are set and audible, and BVM is at bedside. Addendum: 08/02/17 at 0736 by MEENA TAYLOR RT Amended: Links added.
[2017-08-02] MEDS: CHOLECALCIFEROL 1,000 UNIT TABLET (VIT D3) PO SCH (08:13)
[2017-08-02] MEDS: ALLOPURINOL 100 MG TABLET GT SCH (08:13)
[2017-08-02] MEDS: PANTOPRAZOLE 40 MG VIAL IV SCH (08:13)
[2017-08-02] MEDS: LEVOTHYROXINE SODIUM 50 MCG TABLET GT SCH (08:13)
[2017-08-02] MEDS: METOLAZONE 2.5 MG TABLET GT SCH (08:14)
[2017-08-02] MEDS: AMIODARONE HCL 200 MG TABLET GT SCH (08:15)
--- NOTE | 2017-08-02 08:15 | NUR ---
ICU/RN: Dr Gibson rounds; updated on pt status. ABG results relayed to MD, new orders noted and carried out.
[2017-08-02 08:28] LABS: ABG BASE EXCESS 9.7 mmol/L; ABG PCO2 43.9 mmHg (35.0-45.0); ABG PH 7.507 (7.350-7.450); ABG PO2 89.9 mmHg (75.0-100.0); AaDO2 434.4 mmHg; COHb 0.2 % (0.5-1.5); MetHb 0.4 % (0.0-1.5); O2Hb 94.7 % (94.0-97.0); PEEP,BG 10 cm H2O; SITE, ABG Right Femoral; VENT MODE, BG AC 16 400 80% +10; VT, ABG 400 mL
--- NOTE | 2017-08-02 09:15 | NUR ---
ICU/RN: Dr Villalta at bedside; updated on pt status. Pt with cardiac clearance for EGD, notified Dr Gibson regarding pulmonary clearance. Per Dr Gibson, pt is not stable for EGD. Dr Villalta notified.
[2017-08-02] MEDS ORDERED: BUMETANIDE INJ 16 MG in IV NS 0.9% 16 ML IV ONE (09:30)
--- NOTE | 2017-08-02 09:47 | NUR ---
Pt respiratory rate changed from 16 to 12 per MD order. Addendum: 08/02/17 at 1727 by MEENA TAYLOR RT Amended: Links added.
[2017-08-02] MEDS: POTASSIUM CL. PREMIX PERIPHER. 50 ML IV SCH ×4 (10:10→13:36)
--- NOTE | 2017-08-02 11:55 | NUR ---
ICU/RN: Sputum sample collected, lab called for bean picker machine operator.
[2017-08-02] MEDS: SOD FERRIC GLUC 125 MG in IV NS 0.9% 100 ML IV SCH (15:07)
--- NOTE | 2017-08-02 15:30 | NUR ---
ICU/RN: CABRERA Choi at bedside, updated on pt status, per SUPERVISOR BRIDGES AND BUILDINGS, pt is not stable for EGD tomorrow. Labs and imaging reviewed. No new orders.
--- NOTE | 2017-08-02 15:45 | NUR ---
ICU/RN: Yumi Foley at bedside for GI f/u; Hgb with upward trend, no s/s occult bleeding. Aware that pt is not cleared by pulmonology for EGD. Per AUTHOR, inform OR EGD will not be done tomorrow. OR called several times, no answer. edge beader informed.
[2017-08-02] MEDS: GLUCERNA 1.2 1,000 ML BOTTLE NG PRN (16:41)
--- NOTE | 2017-08-02 19:30 | NUR ---
REINFORCED CONCRETE INSPECTOR INITIAL NOTES RECEIVED PATIENT ASLEEP, AROUSABLE, ABLE TO NOD YES OR NO. VENT DEPENDENT. NO RESPIRATORY DISTRESS NOTED. WITH VENT SETTINGS AC 12, TV 400, FIO2 80%, PEEP 10, SPO2 100% SKIN WARM AND DRY TO TOUCH. ON TELE MONITOR SR. F/C PATENT AND INTACT, DRAINING BY GRAVITY. WITH OGT PATENT AND INTACT, IN PLACE, WITH GTF AT 30ML/HR, MINIMAL RESIDUAL NOTED. WITH JOSE PICC LINE PATENT AND INTACT WITH NS TKO, AND DIPRIVAN AT 25MCG/KG/MIN, AND CVP MONITORING. BILATERAL SOFT WRIST RESTRAINTS IN PLACE, CIRCULATION CHECKED. HOB ELEVATED. SIDE RAILS UP AND LOCKED. BED KEPT AT LOWEST POSITION. CALL LIGHT KEPT WITHIN EASY REACH. WILL CONTINUE TO MONITOR.
--- NOTE | 2017-08-02 19:31 | NUR ---
PT RECEIVED ORALLY INTUBATED 7.5 ETT SECURED AT 22 CM AT THE LIP. PT TOLERATING VENT SETTINGS. NO RESP DISTRESS NOTED AT THIS TIME. SX'D SMALL AMT OF PALE YELLOW THICK SECRETIONS. VENT ALARMS SET AND AUDIBLE. AMBU BAG AT BEDSIDE. ETT CUFF CORK SLABS SAWYER. VENT PLUGGED INTO RED OUTLET. WILL CONTINUE TO MONITOR.
[2017-08-02] MEDS: VANCOMYCIN 0.75 GM in IV NS 0.9% 250 ML IV SCH (20:31)
[2017-08-02] MEDS: DOCUSATE SODIUM LIQ 100 MG/10 ML UDC GT SCH (21:56)
[2017-08-02] MEDS: LATANOPROST EYE DROP 0.005% 2.5 ML BOTTLE OP SCH (21:57)
[2017-08-03] VITALS (46 sets, daily range): BP systolic 115–148; BP diastolic 49–79
[2017-08-03] MEDS: PROPOFOL 100 ML IV PRN ×2 (00:28→07:38)
--- NOTE | 2017-08-03 02:02 | NUR ---
PHYSICIAN REPRESENTATIVE NOTE RT AT BEDSIDE, FIO2 TITRATED TO 70%. WILL CONTINUE TO MONITOR.
[2017-08-03 05:04] LABS: HEMATOCRIT 27 % (33-45); HEMOGLOBIN 8.7 g/dL (11.5-14.8); LYMPHOCYTES # (AUTO) 0.3 /CMM (0.8-4.8); LYMPHOCYTES % (AUTO) 2.1 % (20.0-44.0); MEAN CORPUSCULAR HGB CONC 33 g/dl (31.0-36.0); MEAN CORPUSCULAR VOLUME 89 fL (82-100); MONOCYTES # (AUTO) 0.4 /CMM (0.1-1.30); NEUTROPHILS # (AUTO) 13.3 /CMM (1.8-8.9); NEUTROPHILS % (AUTO) 94.9 % (43.0-81.0); PLATELET COUNT (AUTO) 314 /CMM (150-450); RDW COEFFICIENT OF VARIATION 18.7 (11.5-15.0); RED BLOOD CELL COUNT(AUTO) 2.99 MIL/uL (4.0-5.2)
[2017-08-03 05:07] LABS: CALCIUM, SERUM 9.5 mg/dL (8.5-10.1); CARBON DIOXIDE 36 mmol/L (21-32); CHLORIDE 94 mmol/L (98-107); CREATININE 2.6 mg/dL (0.6-1.3); GLUCOSE 281 mg/dL (74-106); MAGNESIUM 2.5 mg/dL (1.8-2.4); PHOSPHORUS 5.1 mg/dL (2.5-4.9); POTASSIUM 3.6 mmol/L (3.5-5.1); SODIUM SERUM 134 mmol/L (136-145)
[2017-08-03 05:12] LABS: UREA NITROGEN, BLOOD 82 mg/dL (7-18)
[2017-08-03] MEDS: BLOOD SUGAR DIAGNOSTIC 1 EACH STRIP IN SCH ×4 (05:26→23:24)
[2017-08-03] MEDS: methylPREDNISolone SOD SUCC 125 MG/2ML VIAL IV SCH ×3 (05:26→21:42)
[2017-08-03] MEDS: MEROPENEM 500 MG in IV NS 0.9% 50 ML IV SCH ×2 (05:26→16:10)
[2017-08-03] MEDS: INSULIN REGULAR, HUMAN 100 UNIT/ML 3 ML VIAL SQ PRN ×3 (05:28→17:35)
--- NOTE | 2017-08-03 05:57 | NUR ---
EMERGING SOLUTIONS EXECUTIVE NOTE RELAYED CRITICAL LAB BUN 82 TO NURSE SEXUAL ASSAULT CORI, WITH NO NEW ORDERS AT THIS TIME. WILL CONTINUE TO MONITOR.
--- NOTE | 2017-08-03 07:19 | NUR ---
Intubated pt received on mechanical vent. Pt ETT is secured at 22cm @ the lip. Vent is plugged into a red outlet, alarms are set and audible, and BVM is at bedside. Addendum: 08/03/17 at 0720 by MEENA TALYOR RT Amended: Links added.
--- NOTE | 2017-08-03 07:30 | NUR ---
RECEIVED PATIENT MECHANICALLY VENTILATED SERBIAN SPEAKING ONLY. 30MCG PROP RUNNING AND PATIENT AWAKE TO LIGHT TOUCH AND FOLLOWS COMMANDS. PATIENT ETT 7.5. BRADSHAW CATH TO GRAVITY HEMATURIA NOTED. PER RN PATIENT HAS HAD THIS ON/OFF FOR A FEW DAYS. WILL NOTIFY . PICC LINE ONLY PURPLE LUMEN PATENT WHICH CVP IS GOING THROUGH; CURRENTLY 12. MESSAGE LEFT TO DOMINICK MOJICA TO NOTIFY AND IF CAN FIX OTHER OCCLUDED LUMENS. OTHER PERIPHERAL SITES CLEAN DRY AND INTACT. PATIENT ATTEMPTING TO PULL AT ETT WHEN INTERACTED WITH RESTRAINTS WILL CONTINUE TO BE USED. VS STABLE AT THIS TIME. WILL CONTACT NEPHRO FOR UPDATE ON LABS. PATIENT APPEARS CALM, COOPERATIVE, AND COMFORTABLE. SAFETY PRECAUTIONS IN PLACE, HOB ELEVATED. TUBE FEEDING RUNNING 50ML.HR WITH 75 RESIDUAL NOTED. RATE LOWERED TO 40. WILL MONITOR CLOSELY
--- NOTE | 2017-08-03 07:36 | NUR ---
SPOKE WITH DR ROBBINS AND NOTIFIED OF PATIENT UPDATED LABS. URINE OUTPUT STILL 250ML S/P BUMEX. NO NEW ORDERS AT THIS TIME.
[2017-08-03] MEDS: LEVOTHYROXINE SODIUM 50 MCG TABLET GT SCH (07:38)
--- NOTE | 2017-08-03 08:05 | NUR ---
PRINT INSPECTOR CLOSING NOTES NO SIGNIFICANT CHANGES OVERNIGHT. NO RESPIRATORY DISTRESS NOTED. TOLERATING VENT SETTINGS, SPO2 98%. KEPT CLEAN AND DRY. TOLERATING GTF AT 50ML/HR. OGT IN PLACE, PATENT AND INTACT. DIPRIVAN AT 30MCG/KG/MIN. TURNED AND REPOSITIONED Q2 AND PRN. HOB ELEVATED. SIDE RAILS UP AND LOCKED. LEAD FRONT DESK AGENT IN PLACE, CIRCULATION CHECKED. CONTINUITY OF CARE ENDORSED TO AM NURSE.
[2017-08-03] MEDS: PANTOPRAZOLE 40 MG VIAL IV SCH (08:15)
[2017-08-03] MEDS: CHOLECALCIFEROL 1,000 UNIT TABLET (VIT D3) PO SCH (08:15)
[2017-08-03] MEDS: METOLAZONE 2.5 MG TABLET GT SCH (08:15)
[2017-08-03] MEDS: ALLOPURINOL 100 MG TABLET GT SCH (08:15)
[2017-08-03] MEDS: AMIODARONE HCL 200 MG TABLET GT SCH (08:16)
[2017-08-03 08:29] LABS: ABG BASE EXCESS 6.3 mmol/L; ABG OXYGEN SATURATION 95.9 % (92.0-98.5); ABG PCO2 44.9 mmHg (35.0-45.0); ABG PH 7.456 (7.350-7.450); ABG PO2 86.5 mmHg (75.0-100.0); AaDO2 364.3 mmHg; COHb 0.6 % (0.5-1.5); MetHb 0.5 % (0.0-1.5); O2Hb 94.8 % (94.0-97.0); SITE, ABG Right Radial; VENT MODE, BG AC 12 400 70% +5
--- NOTE | 2017-08-03 08:41 | NUR ---
DR CRISOSTOMO AT BEDSIDE. UPDATED ON PATIENT URINE HEMATURIA, AND DIMINISHED TOLERANCE OF GTUBE FEEDING WITH RESIDUALS OF 75-100 AT THIS TIME. PER MD GIVE REGLAN IVP 5MG Q8H FOR 72 HRS.
--- NOTE | 2017-08-03 09:40 | NUR ---
PATIENT TOLERATED SEDATION VACATION. WILL CONTINUE TO HOLD DIP DRIP PATIENT IS CALM AND COOPERATIVE, RR 16. NO S/S DISTRESS AND FOLLOWING COMMANDS.
--- NOTE | 2017-08-03 10:30 | NUR ---
VALENTE TORRES AT BEDSIDE. UPDATED ON PATIENT CONDITION. S/P BUMEX MINIMAL URINE OUTPUT 250ML FOR LAST NIGHT AND NOTED HEMATURIA. MD AWARE OF LABS FOR TODAY. NO NEW ORDERS AT THIS TIME.
--- NOTE | 2017-08-03 12:00 | NUR ---
DR ESTRELLA AT BEDSIDE SPEAKING WITH FAMILY. UPDATING ON PATIENT CONDITION AND CARE PLAN
[2017-08-03] MEDS: METOCLOPRAMIDE HCL 10 MG/2 ML VIAL IV SCH ×2 (12:08→21:42)
[2017-08-03] MEDS: SOD FERRIC GLUC 125 MG in IV NS 0.9% 100 ML IV SCH (13:33)
[2017-08-03] MEDS: GLUCERNA 1.2 1,000 ML BOTTLE NG PRN (15:50)
--- NOTE | 2017-08-03 16:09 | NUR ---
MCKENNA RN AT BEDSIDE TO EVALUATE PICC DUE TO ONLY BEING PATENT IN PURPLE LUMEN
--- NOTE | 2017-08-03 18:57 | NUR ---
PATIENT PILL LINE CHANGED BY ROCIO ANDRES RIGHT UPPER ARM. ALL LUMENS PATENT. BRADSHAW CATH TO GRAVITY WITH HEMATURIA. PATIENT CALM AND COOPERATIVE OFF PROPOFOL. SON AT BEDSIDE UPDATED ON PATIENT CONDITION AND CARE PLAN. IV SITE CLEAN DRY AND INTACT. TOLERATING VENT NO COMPLICATIONS. ALL DUE MEDS GIVEN AND ALL NEEDS MET. SAFETY PRECAUTIONS IN PLACE. HOB ELEVATED. TUBE FEEDING RUNNING AT 55ML/HR ABOUT 30 RESIDUAL NOTED. PATIENT CARE ENDORSED TO ROCIO MCFADDEN FOR BHARATH
--- NOTE | 2017-08-03 19:18 | NUR ---
PT RECEIVED ORALLY INTUBATED 7.5 ETT SECURED AT 22 CM AT THE LIP WITH NOTED SETTINGS.PT TOLERATING VENT SETTINGS. NO RESP DISTRESS NOTED AT THIS TIME. SX'D SMALLL AMT OF WHITE THICK SECRETIONS. VENT ALARMS SET AND AUDIBLE. AMBU BAG AT BEDSIDE. ETT CUFF LANGUAGE PATH. VENT PLUGGED INTO RED OUTLET. WILL CONTINUE TO MONITOR.
--- NOTE | 2017-08-03 19:30 | NUR ---
MANAGER COMMERCIAL INITIAL NOTES RECEIVED PATIENT ASLEEP, AROUSABLE, ABLE TO MOUTH NEEDS. DENIES PAIN OR DISCOMFORT. NO RESPIRATORY DISTRESS NOTED. WITH ETT 7.5CM, 22CM AT LIP. TOLERATING CURRENT VENT SETTINGS AC 12, TV 400, FIO2 70%, PEEP 10. WITH OGT PATENT AND INTACT, IN PLACE, GTF AT 55ML/HR WITH MINIMAL RESIDUAL NOTED. ON TELE MONITOR SR. WITH JOSE PICC LINE PATENT AND INTACT WITH CVP MONITORING, AND TKO. WITH BILATERAL SOFT RESTRAINTS IN PLACE, CIRCULATION CHECKED. WITH F/C PATENT AND INTACT. HOB ELEVATED. TURNED AND REPOSITIONED. SIDE RAILS UP AND LOCKED. BED KEPT AT LOWEST POSITION. WILL CONTINUE TO MONITOR.
[2017-08-03] MEDS: DOCUSATE SODIUM LIQ 100 MG/10 ML UDC GT SCH (21:41)
[2017-08-03] MEDS: LATANOPROST EYE DROP 0.005% 2.5 ML BOTTLE OP SCH (21:43)
[2017-08-04] VITALS (45 sets, daily range): BP systolic 53–135; BP diastolic 46–92
[2017-08-04] MEDS: INSULIN REGULAR, HUMAN 100 UNIT/ML 3 ML VIAL SQ PRN ×5 (00:29→23:25)
--- NOTE | 2017-08-04 05:00 | NUR ---
WEDDING CAKE DESIGNER NOTE RELAYED TO BULK FILLER CORI REGARDING PATIENT NOT HAVING URINE OUTPUT WITH WORSENING BUN/CR. WITH ORDER FOR BMP, BMP ALREADY DRAWN FOR THIS MORNING. WILL CONTINUE TO MONITOR.
[2017-08-04 05:15] LABS: CALCIUM, SERUM 9.3 mg/dL (8.5-10.1); CARBON DIOXIDE 31 mmol/L (21-32); CHLORIDE 94 mmol/L (98-107); CREATININE 3.9 mg/dL (0.6-1.3); GLUCOSE 348 mg/dL (74-106); MAGNESIUM 2.8 mg/dL (1.8-2.4); PHOSPHORUS 6.2 mg/dL (2.5-4.9); POTASSIUM 4.1 mmol/L (3.5-5.1); SODIUM SERUM 133 mmol/L (136-145); VANCOMYCIN,TROUGH 21 ug/ml (12-20)
[2017-08-04 05:24] LABS: UREA NITROGEN, BLOOD 112 mg/dL (7-18)
[2017-08-04] MEDS: methylPREDNISolone SOD SUCC 125 MG/2ML VIAL IV SCH ×3 (05:46→21:07)
[2017-08-04] MEDS: METOCLOPRAMIDE HCL 10 MG/2 ML VIAL IV SCH ×3 (05:46→21:07)
[2017-08-04] MEDS: BLOOD SUGAR DIAGNOSTIC 1 EACH STRIP IN SCH ×5 (05:46→23:24)
[2017-08-04] MEDS: MEROPENEM 500 MG in IV NS 0.9% 50 ML IV SCH (05:46)
--- NOTE | 2017-08-04 07:15 | NUR ---
RECEIVED PATIENT MECHANICALLY VENTILATED BOTSWANAN SPEAKING ONLY. PATIENT ETT 7.. BRADSHAW CATH TO GRAVITY TEA COLOR. PICC LINE CLEAN DRY INTACT AND PATEN; CVP CURRENTLY 12. RIGHT WRIST IV SITE CLEAN DRY AND INTACT. PATIENT RAISES HANDS TO ETT WHEN INTERACTED WITH; RESTRAINTS WILL CONTINUE TO BE USED. VS STABLE AT THIS TIME. PATIENT APPEARS CALM, COOPERATIVE, AND COMFORTABLE. SAYS NO TO PAIN, DIFFICULTY BREATHING OR DISCOMFORT. SAFETY PRECAUTIONS IN PLACE, HOB ELEVATED. TUBE FEEDING RUNNING 60ML.HR WITH NO RESIDUAL NOTED. WILL ROUND PRN
[2017-08-04 07:27] LABS: HEMATOCRIT 27 % (33-45); HEMOGLOBIN 8.6 g/dL (11.5-14.8); LYMPHOCYTES # (AUTO) 0.2 /CMM (0.8-4.8); LYMPHOCYTES % (AUTO) 1.5 % (20.0-44.0); MEAN CORPUSCULAR HGB CONC 32 g/dl (31.0-36.0); MEAN CORPUSCULAR VOLUME 89 fL (82-100); MONOCYTES # (AUTO) 0.5 /CMM (0.1-1.30); MONOCYTES % (AUTO) 3.7 % (2.0-12.0); NEUTROPHILS # (AUTO) 13.8 /CMM (1.8-8.9); NEUTROPHILS % (AUTO) 94.8 % (43.0-81.0); PLATELET COUNT (AUTO) 308 /CMM (150-450); RDW COEFFICIENT OF VARIATION 19.2 (11.5-15.0); WHITE BLOOD COUNT (AUTO) 14.6 K/uL (4.3-11.0)
--- NOTE | 2017-08-04 07:31 | NUR ---
TOWER HELPER CLOSING NOTES NO SIGNIFICANT CHANGES OVERNIGHT. PATIENT CALM AND COOPERATIVE. TOLERATING VENT SETTINGS. TOLERATING GTF. ALL NEEDS ANTICIPATED AND MET. KEPT CLEAN AND DRY. TURNED AND REPOSITIONED Q2 AND PRN. CONTINUITY OF CARE ENDORSED TO AM NURSE.
[2017-08-04] MEDS: IV NS 0.9% 100 ML IV PRN (08:00)
[2017-08-04 09:12] LABS: ABG BASE EXCESS 6.7 mmol/L; ABG OXYGEN SATURATION 90.9 % (92.0-98.5); ABG PCO2 53.3 mmHg (35.0-45.0); ABG PH 7.403 (7.350-7.450); ABG PO2 63.8 mmHg (75.0-100.0); COHb 0.3 % (0.5-1.5); MetHb 0.4 % (0.0-1.5); O2Hb 90.3 % (94.0-97.0); PEEP,BG 10 cm H2O; SITE, ABG Left Radial; VT, ABG 400 mL
[2017-08-04] MEDS: CHOLECALCIFEROL 1,000 UNIT TABLET (VIT D3) PO SCH (09:15)
[2017-08-04] MEDS: ALLOPURINOL 100 MG TABLET GT SCH (09:15)
[2017-08-04] MEDS: PANTOPRAZOLE 40 MG VIAL IV SCH (09:15)
[2017-08-04] MEDS: LEVOTHYROXINE SODIUM 50 MCG TABLET GT SCH (09:15)
[2017-08-04] MEDS: METOLAZONE 2.5 MG TABLET GT SCH (09:15)
[2017-08-04] MEDS: GLUCERNA 1.2 1,000 ML BOTTLE NG PRN (09:17)
[2017-08-04] MEDS: AMIODARONE HCL 200 MG TABLET GT SCH (09:17)
[2017-08-04] MEDS: Z GUARD REMEDY 2 OZ OINT TP PRN ×2 (12:52→17:11)
--- NOTE | 2017-08-04 13:00 | NUR ---
STU AT BEDSIDE. PER STU ORDER PUREED DIET CCHO/CARDIAC AND ADVANCE TOLERATED. ORDER CEPACOL OLIVER Q2H PRN FOR SORE THROAT. AND OK TO DOWNGRADE PATIENT TO TELEMETRY MONITORING. NOTIFIED SHANIKA BALTAZAR Addendum: 08/04/17 at 1509 by MARISELA PAPPAS RN INCORRECT PATIENT.
--- NOTE | 2017-08-04 14:58 | NUR ---
PATIENT URINE OUTPUT DECREASED. FLUSHED CATHETER. PATENT Addendum: 08/04/17 at 1510 by MARISELA PAPPAS RN INCORRECT PATIENT
--- NOTE | 2017-08-04 15:09 | NUR ---
DR SLAUGHTER AT BEDSIDE. UPDATED ON PATIENT CONDITION, LABS, VS AND AWARE STILL WAITING ON RESP CX TAKEN 08/02 AT 1145.
--- NOTE | 2017-08-04 16:08 | NUR ---
LUPE PARR AT BEDSIDE. UPDATED ON PATIENT CONDITION, LABS, VS. NOTIFIED PATIENT BLOOD SUGARS CONTINUOUSLY ELEVATED. PER METAL MOLD DRESSER OK TO CHANGE TO AGGRESSIVE SLIDING SCALE Q6H.
[2017-08-04] MEDS: PROPOFOL 100 ML IV PRN (16:29)
--- NOTE | 2017-08-04 16:41 | NUR ---
PATIENT APPEARS UNCOMFORTABLE. RR INCREASED TO LOW 30'S AND PATIENT C/O DISCOMFORT. ATTEMPTING TO PULL AT ETT. RESTARTED DIP AT 5MCG/KG PER PROTOCOL. WILL MONITOR
--- NOTE | 2017-08-04 17:20 | NUR ---
RT END OF THE SHIFT REPORT, PT. 77 Y OLD FEMALE REMAIN ORALLY INTUBATED ETT # 7.5 @ 22 CM LIP LINE AND SECURED. ON THE VENT WITH NOTED SETTINGS. PT. REMAIN STABLE. VENT ALARMS ARE SET AND AUDIBLE, WITH AMBU BAG AT THE BEDSIDE. STOVE CLEANER CUFF PRESSURE NOTED. VENT IS PLUGGED INTO RED OUTLET. HME CHANGED. B/S BILATERALLY RALES EQUAL CHEST RISE NOTED. SX FOR MODERATE THICK YELLOW SECRETIONS. NO RESPIRATORY DISTRESS NOTED T/O SHIFT, WILL CONTINUE TO MONITOR, REPORT WILL PASS TO PM SHIFT. Addendum: 08/06/17 at 1827 by JOHN GORMAN RT Amended: Links added.
--- NOTE | 2017-08-04 18:35 | NUR ---
ALL DUE MEDS GIVEN AND ALL NEEDS MET. VENT STABLE. DIP DRIP RUNNING 10MCG/KG AND PATIENT SEDATED AWAKE TO LIGHT TOUCH ABLE TO FOLLOW COMMANDS. PATIENT IV SITE CLEAN, DRY, INTACT AND PATENT. ASPIRATION PRECAUTIONS IN PLACE. BRADSHAW CATH IN PLACE WITH MINIMAL TEA COLORED OUTPUT. PATIENT HOB ELEVATED SAFETY PRECAUTIONS IN PLACE CARE WILL BE ENDORSED TO RN FOR BHARATH
--- NOTE | 2017-08-04 18:47 | NUR ---
PATIENT WAS ABLE TO LOOSEN LEFT HAND RESTRAINT AND PATIENT PULLED OUT OGT; TIP AT LIPS. HOB ELEVATED. SUCTIONED; NO FEEDING NOTED IN MOUTH. TUBE FEEDINGS ON HOLD. NOTIFIED CHARGE
--- NOTE | 2017-08-04 19:25 | NUR ---
ROSS LIFT OPERATOR OPENING NOTES RECEIVED REPORT FROM MARISELA CHAN. PATIENT OBTUNDED @ THIS TIME BUT RESPONSIVE TO TACTILE STIMULI. BREATHING EVEN & UNLABORED W/ ETT INTACT & SETTINGS AC12, TV 400, FIO2 70%, PEEP 10. ON TELE MONITOR W/ SINUS RHYTHM, HR 80S. CURRENT CVP 12. NO S/S OF RESPIRATORY OR CARDIAC DISTRESS. RIGHT UPPER ARM PICC LINE & RIGHT WRIST IV #20 INTACT & PATENT W/ DRESSING CDI. DIPRIVAN DRIP INFUSING WELL @ 10 ML/HR. NO OG TUBE @ THIS TIME. BRADSHAW CATH DRAINING MINIMAL TEA COLORED URINE. SAFETY MEASURES IN PLACE & BILATERAL SOFT WRIST RESTRAINTS APPLIED. HOB ELEVATED FOR ASPIRATION PRECAUTIONS. WILL CONTINUE TO MONITOR CLOSELY.
[2017-08-04] MEDS ORDERED: VANCOMYCIN 0.75 GM in IV D5W 250 ML IV SCH (21:00)
[2017-08-04] MEDS: DOCUSATE SODIUM LIQ 100 MG/10 ML UDC GT SCH ×2 (21:07→21:17)
[2017-08-04] MEDS: LATANOPROST EYE DROP 0.005% 2.5 ML BOTTLE OP SCH (21:08)
--- NOTE | 2017-08-04 22:00 | NUR ---
CHINESE TEACHER NOTES OG TUBE REPLACED BY SHILPA CHAN. POSITIVE PLACEMENT CONFIRMED & FLUSHING WELL. NO RESIDUALS NOTED. GTF GLUCERNA RE-STARTED @ 60 ML/HR & HOB MAINTAINED @ 30 DEGREES. WILL CONTINUE TO MONITOR.
[2017-08-05] VITALS (48 sets, daily range): BP systolic 111–146; BP diastolic 43–80
[2017-08-05] MEDS: MEROPENEM 500 MG in IV NS 0.9% 50 ML IV SCH (04:34)
[2017-08-05] MEDS: methylPREDNISolone SOD SUCC 125 MG/2ML VIAL IV SCH ×3 (04:36→21:40)
[2017-08-05] MEDS: METOCLOPRAMIDE HCL 10 MG/2 ML VIAL IV SCH ×3 (04:36→21:40)
[2017-08-05] MEDS: PROPOFOL 100 ML IV PRN ×3 (04:44→19:43)
[2017-08-05 05:02] LABS: HEMATOCRIT 28 % (33-45); HEMOGLOBIN 9.1 g/dL (11.5-14.8); LYMPHOCYTES # (AUTO) 0.2 /CMM (0.8-4.8); LYMPHOCYTES % (AUTO) 1.6 % (20.0-44.0); MEAN CORPUSCULAR HGB CONC 33 g/dl (31.0-36.0); MEAN CORPUSCULAR VOLUME 89 fL (82-100); MONOCYTES # (AUTO) 0.2 /CMM (0.1-1.30); MONOCYTES % (AUTO) 1.7 % (2.0-12.0); NEUTROPHILS # (AUTO) 14.3 /CMM (1.8-8.9); NEUTROPHILS % (AUTO) 96.7 % (43.0-81.0); PLATELET COUNT (AUTO) 296 /CMM (150-450); RDW COEFFICIENT OF VARIATION 19.3 (11.5-15.0); RED BLOOD CELL COUNT(AUTO) 3.11 MIL/uL (4.0-5.2); WHITE BLOOD COUNT (AUTO) 14.8 K/uL (4.3-11.0)
[2017-08-05 05:23] LABS: CALCIUM, SERUM 9.1 mg/dL (8.5-10.1); CARBON DIOXIDE 30 mmol/L (21-32); CHLORIDE 92 mmol/L (98-107); CREATININE 5.1 mg/dL (0.6-1.3); GLUCOSE 296 mg/dL (74-106); MAGNESIUM 3.1 mg/dL (1.8-2.4); POTASSIUM 4.8 mmol/L (3.5-5.1); SODIUM SERUM 132 mmol/L (136-145)
[2017-08-05 05:27] LABS: UREA NITROGEN, BLOOD 136 mg/dL (7-18)
[2017-08-05] MEDS: INSULIN REGULAR, HUMAN 100 UNIT/ML 3 ML VIAL SQ PRN ×3 (05:45→18:12)
[2017-08-05] MEDS: BLOOD SUGAR DIAGNOSTIC 1 EACH STRIP IN SCH ×3 (05:46→18:00)
--- NOTE | 2017-08-05 07:30 | NUR ---
DR WHITE NOTIFIED ABOUT PATIENT LABS FOR THIS AM
--- NOTE | 2017-08-05 07:30 | NUR ---
RECEIVED PATIENT MECHANICALLY VENTILATED [place]GIAN SPEAKING ONLY. PATIENT ETT 7.. BRADSHAW CATH TO GRAVITY TEA COLOR. PICC LINE CLEAN DRY INTACT AND PATEN; CVP CURRENTLY 13. RIGHT WRIST IV SITE CLEAN DRY AND INTACT. PATIENT RAISES HANDS TO ETT WHEN INTERACTED WITH; RESTRAINTS WILL CONTINUE TO BE USED. DIP RUNNING AT 15MCG/KG SEDATED BUT FOLLOWS COMMANDS WHEN INTERACTED WITH. VS STABLE AT THIS TIME. PATIENT APPEARS CALM, COOPERATIVE, AND COMFORTABLE. SAFETY PRECAUTIONS IN PLACE, HOB ELEVATED. TUBE FEEDING RUNNING 60ML.HR WITH NO RESIDUAL NOTED. WILL ROUND PRN. OGT IN CORRECT POSITION PER XRAY WILL CONTINUE WITH FEEDINGS
[2017-08-05] MEDS: IV NS 0.9% 100 ML IV PRN (07:53)
[2017-08-05] MEDS: Z GUARD REMEDY 2 OZ OINT TP PRN ×2 (07:53→18:12)
[2017-08-05] MEDS: GLUCERNA 1.2 1,000 ML BOTTLE NG PRN (07:53)
[2017-08-05 07:58] LABS: ABG BASE EXCESS 2.1 mmol/L; ABG OXYGEN SATURATION 89.1 % (92.0-98.5); ABG PCO2 49.9 mmHg (35.0-45.0); ABG PH 7.367 (7.350-7.450); ABG PO2 63.2 mmHg (75.0-100.0); AaDO2 382.3 mmHg; COHb 0.3 % (0.5-1.5); MetHb 0.6 % (0.0-1.5); O2Hb 88.3 % (94.0-97.0); PEEP,BG 10 cm H2O; SITE, ABG Left Radial; VT, ABG 400 mL
--- NOTE | 2017-08-05 08:00 | NUR ---
DR LEONARDO AT BEDSIDE. UPDATED ON PATIENT CONDITION, VS, LABS, RESP STATUS.
[2017-08-05] MEDS: AMIODARONE HCL 200 MG TABLET GT SCH (08:01)
[2017-08-05] MEDS: LEVOTHYROXINE SODIUM 50 MCG TABLET GT SCH (08:01)
[2017-08-05] MEDS: CHOLECALCIFEROL 1,000 UNIT TABLET (VIT D3) PO SCH (08:01)
[2017-08-05] MEDS: PANTOPRAZOLE 40 MG VIAL IV SCH (08:01)
[2017-08-05] MEDS: ALLOPURINOL 100 MG TABLET GT SCH (08:06)
--- NOTE | 2017-08-05 11:09 | NUR ---
DR SLAUGHTER AT BEDSIDE UPDATED ON PATIENT CONDITION, LABS, VS. NOTIFIED I CALLED LAB THIS AM TO F/U ON CULTURE HE IS WAITING ON AND PER LAB THEY WONT EXPECT RESULTS UNTIL AT LEAST SUNDAY. AWARE. CABRERA PARR AT BEDSIDE
--- NOTE | 2017-08-05 17:23 | NUR ---
RT END OF THE SHIFT REPORT, PT. 77 Y OLD FEMALE REMAIN ORALLY INTUBATED ETT # 7.5 @ 22 CM LIP LINE AND SECURED. ON THE VENT WITH NOTED SETTINGS. (AC,12,400,70%+10) PT. REMAIN STABLE. VENT ALARMS ARE SET AND AUDIBLE, WITH AMBU BAG AT THE BEDSIDE. PLANTING SUPERVISOR CUFF PRESSURE NOTED. VENT IS PLUGGED INTO RED OUTLET. HME CHANGED. B/S BILATERALLY RALES EQUAL CHEST RISE NOTED. SX FOR MODERATE THICK YELLOW SECRETIONS. NO RESPIRATORY DISTRESS NOTED T/O SHIFT, WILL CONTINUE TO MONITOR, REPORT WILL PASS TO PM SHIFT. Addendum: 08/06/17 at 1827 by JOHN GORMAN RT Amended: Links added.
--- NOTE | 2017-08-05 19:14 | NUR ---
NO COMPLICATIONS THROUGHT DAY. VS STABLE. TOLERATING VENT. SLIGHT INCREASE IN URINE OUTPUT FOR TODAY 50ML. PATIENT IV SITE CLEAN DRY INTACT AND PATENT. DIP RUNNING 15MCG AND PATIENT COMFORTABLY SEDATED RESPONDS TO TOUGH AND FOLLOWS COMMANDS. BRADSHAW CATH TO GRAVITY. NOTIFIED RN NEXT STOOL SAMPLE MAY NEED TO COLLECT CDIFF PER PROTOCOL. TOLERATING TUBE FEEDING NO RESIDUAL. ETT / OGT IN PLACE NO CHANGE IN POSITIONING. PATIENT CARE ENDORSED TO RN FOR BHARATH
--- NOTE | 2017-08-05 19:35 | NUR ---
RN NOTES RECEIVED PT SEDATED ON BED WITH DIPRIVAN AT 15 MCG/KG/MIN. CALM AND COOPERATIVE. WITH ETT @ 7.5/ 22 CM AT LIP CONNECTED TO VENT SETTING AC 12 TV 400 FIO2 70% PEEP 10. SATING 95% NO ACUTE RESP. DISTRESS TELE MONITOR REVEALS SR HR 60'S. AFEBRILE ZERO FLACC. WITH GTF AT 50 CC/HR TOLERATED WELL WITH SERO RESIDUAL PATENCY CHECKED. IV SITE ON RIGHT WRIST HL AND JOSE PICC LINE RUNNING WITH DIPRIVAN AND CVP @ 12. OFFLOADED EXT WITH PILLOWS/ F/C DRAINED WITH YELLOW COLOR URINE. KEPT PT CLEAN AND DRY AND COMFORTABLE IN BED. WILL CLOSELY MONITOR.
[2017-08-05] MEDS: LATANOPROST EYE DROP 0.005% 2.5 ML BOTTLE OP SCH (21:42)
[2017-08-05] MEDS: DOCUSATE SODIUM LIQ 100 MG/10 ML UDC GT SCH (22:00)
[2017-08-06] VITALS (50 sets, daily range): BP systolic 91–147; BP diastolic 36–96
[2017-08-06] MEDS: BLOOD SUGAR DIAGNOSTIC 1 EACH STRIP IN SCH ×4 (00:59→17:40)
[2017-08-06] MEDS: *INSULIN REGULAR(HUMULIN R)HUM 100 UNIT/ML VIAL SQ PRN (01:02)
[2017-08-06] MEDS: GLUCERNA 1.2 1,000 ML BOTTLE NG PRN ×2 (03:50→19:00)
[2017-08-06 04:43] LABS: HEMATOCRIT 28 % (33-45); HEMOGLOBIN 8.9 g/dL (11.5-14.8); LYMPHOCYTES # (AUTO) 0.3 /CMM (0.8-4.8); LYMPHOCYTES % (AUTO) 1.7 % (20.0-44.0); MEAN CORPUSCULAR HGB CONC 32 g/dl (31.0-36.0); MEAN CORPUSCULAR VOLUME 89 fL (82-100); MONOCYTES # (AUTO) 0.1 /CMM (0.1-1.30); MONOCYTES % (AUTO) 0.5 % (2.0-12.0); NEUTROPHILS # (AUTO) 15.8 /CMM (1.8-8.9); NEUTROPHILS % (AUTO) 97.8 % (43.0-81.0); PLATELET COUNT (AUTO) 335 /CMM (150-450); RED BLOOD CELL COUNT(AUTO) 3.13 MIL/uL (4.0-5.2); WHITE BLOOD COUNT (AUTO) 16.1 K/uL (4.3-11.0)
[2017-08-06 05:11] LABS: CALCIUM, SERUM 9.1 mg/dL (8.5-10.1); CARBON DIOXIDE 30 mmol/L (21-32); CHLORIDE 93 mmol/L (98-107); CREATININE 5.9 mg/dL (0.6-1.3); GLUCOSE 345 mg/dL (74-106); MAGNESIUM 3.2 mg/dL (1.8-2.4); SODIUM SERUM 133 mmol/L (136-145)
[2017-08-06] MEDS: methylPREDNISolone SOD SUCC 125 MG/2ML VIAL IV SCH ×3 (05:14→21:14)
[2017-08-06] MEDS: METOCLOPRAMIDE HCL 10 MG/2 ML VIAL IV SCH ×2 (05:14→12:12)
[2017-08-06] MEDS: MEROPENEM 500 MG in IV NS 0.9% 50 ML IV SCH (05:14)
[2017-08-06 05:16] LABS: POTASSIUM 5.9 mmol/L (3.5-5.1)
[2017-08-06 05:21] LABS: UREA NITROGEN, BLOOD 164 mg/dL (7-18)
--- NOTE | 2017-08-06 05:22 | NUR ---
PT REC'D ORALLY INTUBATED SZ 7.5 SECURED @ 22CM AT THE LIP. NO RESP DISTRESS NOTED. SX'D THICK SMALL AMT OF PINK SECRETIONS. ALARMS ARE SET AND AUDIBLE. VENT PLUGGED INTO RED OUTLET, WILL CONTINUE TO MONITOR. Addendum: 08/06/17 at 0548 by NEY CORTEZ RT Amended: Links added.
[2017-08-06] MEDS: INSULIN REGULAR, HUMAN 100 UNIT/ML 3 ML VIAL SQ PRN ×3 (05:23→18:03)
--- NOTE | 2017-08-06 06:43 | NUR ---
RN NOTES PT REMAINED THE SAME, CRITICAL LAB VALUES REPORTED TO NEGRETTE TILE ERECTOR PANAMA HAT HYDRAULIC PRESS OPERATOR, SUCH BUN 164 PHOS 8.0 MAG 3.2. MADE AWARE REGARDING PENDING HD CATH PLACEMENT. ETT AND VENT SETTING TOLERATED WELL NO ACUTE RESP DISTRESS. REMAINED SR WITH EPISODE OF A- PACING . PT STILL SEDATED WITH DIPRIVAN @ 15 MCG/KG/MIN ON JOSE PICC LINE. IV SITE INTACT AND PATENT. CVP LEVELED AND CALIBRATED. F/C DRAINED WITH YELLOW CLOUDY 200 CC OUTPUT THROUGHOUT THE SHIFT. WITH 1 LARGE LOOSE BOWEL PRESENT. KEPT PT CLEAN AND DRY AND COMFORTABLE IN BED. WILL ENDORSED CONTINUITY OF CARE TO AM NURSE.
--- NOTE | 2017-08-06 07:30 | NUR ---
RECEIVED PATIENT MECHANICALLY VENTILATED PER ORDER CHINESE SPEAKING ONLY. PATIENT ETT 7.. BRADSHAW CATH TO GRAVITY TEA COLOR. PICC LINE CLEAN DRY INTACT AND PATENT. RIGHT WRIST IV SITE CLEAN DRY AND INTACT. PATIENT RAISES HANDS TO ETT WHEN INTERACTED WITH; RESTRAINTS WILL CONTINUE TO BE USED. DIP RUNNING AT 20MCG/KG PATIENT PROPERLY SEDATED AND FOLLOWS COMMANDS WHEN INTERACTED WITH. VS STABLE AT THIS TIME. PATIENT APPEARS CALM, COOPERATIVE, AND COMFORTABLE. SAFETY PRECAUTIONS IN PLACE, HOB ELEVATED. TUBE FEEDING RUNNING 60ML.HR WITH 30 RESIDUAL NOTED. WILL ROUND PRN.
[2017-08-06] MEDS: Z GUARD REMEDY 2 OZ OINT TP PRN ×2 (08:18→17:40)
[2017-08-06] MEDS: ALLOPURINOL 100 MG TABLET GT SCH (08:19)
[2017-08-06] MEDS: LEVOTHYROXINE SODIUM 50 MCG TABLET GT SCH (08:19)
[2017-08-06] MEDS: CHOLECALCIFEROL 1,000 UNIT TABLET (VIT D3) PO SCH (08:19)
[2017-08-06] MEDS: PANTOPRAZOLE 40 MG VIAL IV SCH (08:19)
[2017-08-06] MEDS: AMIODARONE HCL 200 MG TABLET GT SCH (08:20)
[2017-08-06] MEDS: PROPOFOL 100 ML IV PRN ×2 (08:24→16:30)
--- NOTE | 2017-08-06 08:45 | NUR ---
SPOKE WITH DR DURHAM AND PER WILL BE BY AROUND NOON FOR HD CATH INSERTION
--- NOTE | 2017-08-06 08:45 | NUR ---
DR ESTRELLA AT BEDSIDE. UPDATED ON PATIENT LABS, ABG, CONDITION. AWARE PATIENT HAS GALLOWAY THICK MOD SPUTUM. PER DR ESTRELLA NO CHANGES TO VENT AT THIS TIME. PT VS STABLE. TREND CVP 12-14
[2017-08-06 09:06] LABS: ABG BASE EXCESS 3.7 mmol/L; ABG OXYGEN SATURATION 92.7 % (92.0-98.5); ABG PCO2 45.5 mmHg (35.0-45.0); ABG PH 7.418 (7.350-7.450); ABG PO2 66.9 mmHg (75.0-100.0); AaDO2 383.3 mmHg; COHb 0.3 % (0.5-1.5); MetHb 0.4 % (0.0-1.5); O2Hb 92.1 % (94.0-97.0); SITE, ABG Left Radial; VT, ABG 400 mL
--- NOTE | 2017-08-06 09:30 | NUR ---
DR JEAN AT BEDSIDE. UPDATED ON PATIENT LABS, VS, CONDITION. AWARE PATIENT IS STARTING TO HAVE MORE URINE OUTPUT AND NO LONGER TEA COLORED; NOW YELLOW/CLOUDY. AWARE THAT I SPOKE WITH DR DURHAM AND PER MD WILL PLACE HD CATH AROUND NOON AND HD RN BILL WILL COMPLETE HD AFTER INSERTION. NOTIFIED DR JEAN PATIENT SON JETT WOULD LIKE TO SPEAK WITH HER AND GET AN UPDATE ON CARE PLAN.
--- NOTE | 2017-08-06 12:30 | NUR ---
DR DURHAM AT BEDSIDE FOR HD CATH PLACEMENT. PATIENT VS STABLE BEFORE AND AFTER PROCEDURE. PULSES PRESENT BELOW SITE. NO ADVERSE COMPLICATIONS NOTED. WILL MONITOR
--- NOTE | 2017-08-06 14:45 | NUR ---
updated son vasquez that patient has hd cath placed and will receive first hd treatment today.
--- NOTE | 2017-08-06 18:20 | NUR ---
RT END OF THE SHIFT REPORT, PT. 77 Y OLD FEMALE REMAIN ORALLY INTUBATED ETT # 7.5 @ 22 CM LIP LINE AND SECURED. ON THE VENT WITH NOTED SETTINGS. (AC,12,400,70%+10) PT. REMAIN STABLE. VENT ALARMS ARE SET AND AUDIBLE, WITH AMBU BAG AT THE BEDSIDE. OVERLOCK SEWING MACHINE OPERATOR CUFF PRESSURE NOTED. VENT IS PLUGGED INTO RED OUTLET. HME CHANGED. B/S BILATERALLY RALES EQUAL CHEST RISE NOTED. SX FOR MODERATE THICK YELLOW SECRETIONS. NO RESPIRATORY DISTRESS NOTED T/O SHIFT, WILL CONTINUE TO MONITOR, REPORT WILL PASS TO PM SHIFT. Addendum: 08/06/17 at 1827 by JOHN GORMAN RT Amended: Links added.
--- NOTE | 2017-08-06 18:47 | NUR ---
VS STABLE. TOLERATING VENT. INCREASE IN URINE OUTPUT FOR TODAY 400ML. PATIENT IV SITE CLEAN DRY INTACT AND PATENT. DIP RUNNING 25MCG AND PATIENT COMFORTABLY SEDATED RESPONDS TO TOUGH AND FOLLOWS COMMANDS. BRADSHAW CATH TO GRAVITY. TOLERATING TUBE FEEDING FAIR; WITH RESIDUAL NOTED 30-40ML. ETT / OGT IN PLACE NO CHANGE IN POSITIONING. PATIENT CURRENTLY UNDERGOING HD AT RIGHT FEM SITE. PATIENT CARE ENDORSED TO RN FOR BHARATH. FAMILY AT BEDSIDE. PATIENT RESPONSIVE WITH FAMILY.
--- NOTE | 2017-08-06 18:52 | NUR ---
DR SLAUGHTER AT BEDSIDE. UDPATED ON PATIENT LABS, CONDITION AND VS. PER MD OBTAIN LEGION. URINE SAMPLE. HD COMPLETED 1 L OUT. VS STABLE AT THIS TIME. FAMILY AT BEDSIDE.
[2017-08-06] MEDS ORDERED: AZITHROMYCIN 500 MG in IV D5W 250 ML IV SCH (19:00)
--- NOTE | 2017-08-06 19:25 | NUR ---
RN NOTES RECEIVED PT ON BED SEDATED WITH DIPRIVAN, CALM AND COOPERATIVE. PT HAS ETT @ 7.5/ 22 CM AT LIP CONNECTED TO VENT SETTING AC 12 TV 400 FIO2 70% PEEP 10. SATING 9% NO ACUTE RESP. DISTRESS TELE MONITOR REVEALS SR HR 60'S. AFEBRILE ZERO FLACC. WITH GTF AT 50 CC/HR TOLERATED WELL WITH 20 CC RESIDUAL PATENCY CHECKED. IV SITE ON RIGHT WRIST HL AND JOSE PICC LINE RUNNING WITH DIPRIVAN AND CVP @ 11. OFFLOADED EXT WITH PILLOWS/ F/C DRAINED WITH YELLOW CLOUDY COLOR URINE. SAFETY KEPT PT CLEAN AND DRY AND COMFORTABLE IN BED. WILL CLOSELY MONITOR.
[2017-08-06] MEDS ORDERED: DOXYCYCLINE 100 MG in IV NS 0.9% 100 ML IV SCH (21:00)
[2017-08-06] MEDS: DOXYCYCLINE 100 MG in IV D5W 100 ML IV SCH (21:10)
[2017-08-06] MEDS: LATANOPROST EYE DROP 0.005% 2.5 ML BOTTLE OP SCH (21:11)
[2017-08-06] MEDS: DOCUSATE SODIUM LIQ 100 MG/10 ML UDC GT SCH (21:11)
[2017-08-07] VITALS (59 sets, daily range): BP systolic 69–140; BP diastolic 30–94
[2017-08-07] MEDS: BLOOD SUGAR DIAGNOSTIC 1 EACH STRIP IN SCH ×5 (00:35→23:29)
[2017-08-07] MEDS: INSULIN REGULAR, HUMAN 100 UNIT/ML 3 ML VIAL SQ PRN ×5 (00:36→23:30)
[2017-08-07] MEDS: PROPOFOL 100 ML IV PRN ×3 (01:25→20:20)
[2017-08-07 04:49] LABS: HEMATOCRIT 28 % (33-45); LYMPHOCYTES # (AUTO) 0.2 /CMM (0.8-4.8); LYMPHOCYTES % (AUTO) 1.1 % (20.0-44.0); MEAN CORPUSCULAR HGB CONC 32 g/dl (31.0-36.0); MEAN CORPUSCULAR VOLUME 89 fL (82-100); MONOCYTES # (AUTO) 0.2 /CMM (0.1-1.30); MONOCYTES % (AUTO) 0.8 % (2.0-12.0); NEUTROPHILS # (AUTO) 19.9 /CMM (1.8-8.9); NEUTROPHILS % (AUTO) 98.1 % (43.0-81.0); PLATELET COUNT (AUTO) 183 /CMM (150-450); RDW COEFFICIENT OF VARIATION 19.6 (11.5-15.0); RED BLOOD CELL COUNT(AUTO) 3.14 MIL/uL (4.0-5.2); WHITE BLOOD COUNT (AUTO) 20.3 K/uL (4.3-11.0)
[2017-08-07] MEDS: methylPREDNISolone SOD SUCC 125 MG/2ML VIAL IV SCH ×3 (05:09→20:20)
[2017-08-07] MEDS: MEROPENEM 500 MG in IV NS 0.9% 50 ML IV SCH (05:09)
[2017-08-07 05:16] LABS: CALCIUM, SERUM 8.8 mg/dL (8.5-10.1); CARBON DIOXIDE 30 mmol/L (21-32); CHLORIDE 96 mmol/L (98-107); CREATININE 4.6 mg/dL (0.6-1.3); GLUCOSE 257 mg/dL (74-106); POTASSIUM 4.9 mmol/L (3.5-5.1); SODIUM SERUM 136 mmol/L (136-145)
--- NOTE | 2017-08-07 05:21 | NUR ---
PT REC'D ORALLY INTUBATED WITH ETT 7.5 SECURED @ 22CM AT THE LIP. NO RESP DISTRESS NOTED. SX'D THICK MOD AMT OF YELLOW SECRETIONS. ALARMS ARE SET AND AUDIBLE. VENT PLUGGED INTO RED OUTLET, WILL CONTINUE TO MONITOR. Addendum: 08/07/17 at 0521 by ALEX RAMOS RT Amended: Links added.
[2017-08-07 05:34] LABS: UREA NITROGEN, BLOOD 127 mg/dL (7-18)
[2017-08-07 05:35] LABS: PHOSPHORUS 8.4 mg/dL (2.5-4.9)
[2017-08-07 06:08] LABS: BAND % (MANUAL) 3 % (0.0-5.0); LYMPHOCYTES % (MANUAL) 2 % (16-48); METAMYELOCYTES % 1 % (0-0); NEUTROPHILS % (MANUAL) 93 (42-76)
[2017-08-07 06:09] LABS: MYELOCYTES % 1 % (0-0)
--- NOTE | 2017-08-07 07:00 | NUR ---
RN NOTES PT STABLE TROUGHTOUT THE SHIFT. AFEBRILE. VS REMAINED STABLE ZERO FLACC. ETT AND VENT SETTING TOLERATED WELL. DIARRHEA STILL NOTED CHANGE LINENS TWICE. IV SITE WITH PROPOFOL TITRATED ORDERED PT COMPLIANCE. CVP @ 7 LEVELED AND CALIBRATED. ALL DUE MEDICINE TOLERATED WELL. NOTED DIALYSIS SITE STILL BLEEDING CHANGE DRESSING AND SAND BAG PLACED ENDORSED CONTINUITY OF CARE TO AM NURSE. LEFT A MESSAGE TO MD TO REPORT ABOUT CRITICAL LABS PHOS 8.4 BUN 127 AND CREATININE 4.57
--- NOTE | 2017-08-07 07:32 | NUR ---
VS STABLE. TOLERATING VENT PER ORDER. INCREASE IN URINE OUTPUT FOR SENIOR ENGINEERING TECHNICIAN NOTED AROUND 800ML YELLOW. PATIENT IV SITE CLEAN DRY INTACT AND PATENT. DIP RUNNING 25MCG AND PATIENT COMFORTABLY SEDATED; ELVIA 4. RESPONDS TO TOUCH AND FOLLOWS COMMANDS. BRADSHAW CATH TO GRAVITY CLEAN AND PATENT. TOLERATING TUBE FEEDING FAIR; WITH RESIDUAL NOTED 30-50ML. ETT / OGT IN PLACE NO CHANGE IN POSITIONING. RIGHT FEM HD CATH IN PLACE WITH PRESSURE DRESSING PER ROCIO SIDHU WAS BLEEDING SLIGHTLY. NO BLEEDING NOTED AT THIS TIME. WILL MONITOR. SAFETY PRECAUTIONS IN PLACE. HOB ELEVATED. WILL ROUND PRN
[2017-08-07] MEDS: LEVOTHYROXINE SODIUM 50 MCG TABLET GT SCH (08:25)
[2017-08-07] MEDS: ALLOPURINOL 100 MG TABLET GT SCH (08:25)
[2017-08-07] MEDS: CHOLECALCIFEROL 1,000 UNIT TABLET (VIT D3) PO SCH (08:25)
[2017-08-07] MEDS: PANTOPRAZOLE 40 MG VIAL IV SCH (08:25)
[2017-08-07] MEDS: Z GUARD REMEDY 2 OZ OINT TP PRN ×2 (08:26→17:28)
[2017-08-07] MEDS: AMIODARONE HCL 200 MG TABLET GT SCH (08:27)
[2017-08-07] MEDS: DOXYCYCLINE 100 MG in IV D5W 100 ML IV SCH ×2 (08:30→20:20)
--- NOTE | 2017-08-07 08:30 | NUR ---
PATIENT HAD ANOTHER EPISODE OF DIARRHEA SINCE 629 AND BUTTOCK BECOMING EXCORIATED EVEN WITH Z GUARD ADMIN. FLEXI SEAL APPLIED TO ASSIST WITH SKIN HEALING
[2017-08-07 09:30] LABS: ABG OXYGEN SATURATION 95.4 % (92.0-98.5); ABG PCO2 53.4 mmHg (35.0-45.0); ABG PH 7.382 (7.350-7.450); ABG PO2 90.5 mmHg (75.0-100.0); AaDO2 351.2 mmHg; COHb 0.3 % (0.5-1.5); MetHb 0.7 % (0.0-1.5); O2Hb 94.4 % (94.0-97.0); PEEP,BG 10 cm H2O; SITE, ABG Right Radial
--- NOTE | 2017-08-07 10:21 | NUR ---
JODIE CHINCHILLA AT BEDSIDE. PATIENT VS STABLE
--- NOTE | 2017-08-07 10:48 | NUR ---
PATIENT BLOOD PRESSURE DROPPING WITH HD. SPOKE WITH DR JEAN AND LILIAM TO ORDER ALBUMIN WITH HD 100ML. CVP CURRENTLY 2. STOPPED FEEDING. PLACED SUPINE.
[2017-08-07] MEDS: ALBUMIN 25% 25 GM in PREMIX 1 EA IV PRN ×2 (11:05→11:25)
--- NOTE | 2017-08-07 11:15 | NUR ---
DR JEAN AT BEDSIDE. NOTIFIED OF PATIENT INCREASE IN UO 800 LAST NIGHT. MD AWARE PATIENT HD LINE STILL SLGIHTLY BLEEDING; PER MD SHE WILL ORDER DESMO.
[2017-08-07] MEDS ORDERED: DESMOPRESSIN 20 MCG in IV NS 0.9% 50 ML IV ONE (13:00)
[2017-08-07] MEDS: SEVELAMER CARBONATE 0.8 GM POWD.PACK GT SCH ×2 (13:50→17:28)
--- NOTE | 2017-08-07 18:06 | NUR ---
RT END OF THE SHIFT REPORT, PT. 77 Y OLD FEMALE REMAIN ORALLY INTUBATED ETT # 7.5 @ 22 CM LIP LINE AND SECURED. ON THE VENT WITH NOTED SETTINGS. (AC,12,400,70%+10) PT. REMAIN STABLE. VENT ALARMS ARE SET AND AUDIBLE, WITH AMBU BAG AT THE BEDSIDE. HEALTH CARE ASSISTANT CUFF PRESSURE NOTED. VENT IS PLUGGED INTO RED OUTLET. HME CHANGED. B/S BILATERALLY RALES EQUAL CHEST RISE NOTED. SX FOR MODERATE THICK YELLOW SECRETIONS. NO RESPIRATORY DISTRESS NOTED T/O SHIFT, WILL CONTINUE TO MONITOR, REPORT WILL PASS TO PM SHIFT. Addendum: 08/07/17 at 1807 by JOHN GORMAN RT Amended: Links added.
--- NOTE | 2017-08-07 18:51 | NUR ---
VS STABLE. TOLERATING VENT. INCREASE IN URINE OUTPUT AGAIN TODAY; OVER 800ML. PATIENT IV SITE CLEAN DRY INTACT AND PATENT. DIP RUNNING 25MCG AND PATIENT COMFORTABLY SEDATED RESPONDS TO TOUGH AND FOLLOWS COMMANDS. BRADSHAW CATH TO GRAVITY. TOLERATING TUBE FEEDING FAIR; WITH RESIDUAL NOTED 30-40ML. ETT / OGT IN PLACE NO CHANGE IN POSITIONING. PATIENT CARE ENDORSED TO RN FOR BHARATH. FAMILY AT BEDSIDE. PATIENT RESPONSIVE WITH FAMILY.
--- NOTE | 2017-08-07 19:00 | NUR ---
RN INITIAL NOTES RECEIVED THE PATIENT SEDATED ON BED WITH DIPRIVAN @ 25MCG/KG/MIN, EASILY AROUSABLE BY NAME AND CAN FOLLOW SIMPLE COMMANDS. INTUBATED AND ON VENT WITH SETTINGS AC 12, TV 400, FIO2 70%, PEEP 10, ETT 7.5/22@LIP, SATURATING WELL, NO S/S OF RESP DISTRESS. SR ON THE MONITOR, HR 70'S. CVP MONITORING IN PLACE. FLEXISEAL IN PLACE WITH LIQUID BROWN STOOL. BRADSHAW CATH IN PLACE. RIGHT FEMORAL HD CATH IS IN PLACE, ACTIVE BLEEDING IS NOTED, DESMOPRESSIN WAS GIVEN DURING AM SHIFT PER MD ORDER, SANDBAG IN PLACE TO MAINTAIN PRESSURE, WILL CLOSELY MONITOR. RIGHT WRIST 20G, RIGHT UPPER ARM PICC BOTH FLUSHED AND PATENT, NO S/S OF INFILTRATION/INFECTION, DRESSINGS CDI. BED LOW AND LOCKED, SIDERAILS UP, BILATERAL WRIST RESTRAINTS IN PLACE FOR SAFETY. WILL MONITOR
--- NOTE | 2017-08-07 19:50 | NUR ---
ROCIO NOTES DR BONILLA IN THE UNIT TO ASSESS THE PATIENT. GAVE MD AN UPDATE ON PATIENT Addendum: 08/08/17 at 0626 by DYLAN CALIX RN DISREGARD THE NOTE ABOVE. WRONG PATIENT
[2017-08-07] MEDS: INSULIN GLARGINE, 100 UNIT/ML CARTRIDGE SQ SCH (21:13)
[2017-08-07] MEDS: LATANOPROST EYE DROP 0.005% 2.5 ML BOTTLE OP SCH (21:14)
[2017-08-07] MEDS: DOCUSATE SODIUM LIQ 100 MG/10 ML UDC GT SCH (21:14)
[2017-08-08] VITALS (56 sets, daily range): BP systolic 105–138; BP diastolic 43–67
[2017-08-08] MEDS: PROPOFOL 100 ML IV PRN ×4 (01:04→23:21)
[2017-08-08] MEDS: IV NS 0.9% 100 ML IV PRN (01:05)
[2017-08-08 04:48] LABS: HEMATOCRIT 22 % (33-45); HEMOGLOBIN 7.2 g/dL (11.5-14.8); LYMPHOCYTES # (AUTO) 0.2 /CMM (0.8-4.8); LYMPHOCYTES % (AUTO) 1.3 % (20.0-44.0); MEAN CORPUSCULAR HGB CONC 33 g/dl (31.0-36.0); MEAN CORPUSCULAR VOLUME 89 fL (82-100); MONOCYTES # (AUTO) 0.6 /CMM (0.1-1.30); MONOCYTES % (AUTO) 3.4 % (2.0-12.0); NEUTROPHILS # (AUTO) 17.5 /CMM (1.8-8.9); NEUTROPHILS % (AUTO) 95.3 % (43.0-81.0); PLATELET COUNT (AUTO) 110 /CMM (150-450); RDW COEFFICIENT OF VARIATION 19.3 (11.5-15.0); RED BLOOD CELL COUNT(AUTO) 2.46 MIL/uL (4.0-5.2); WHITE BLOOD COUNT (AUTO) 18.3 K/uL (4.3-11.0)
[2017-08-08] MEDS: MEROPENEM 500 MG in IV NS 0.9% 50 ML IV SCH (05:14)
[2017-08-08] MEDS: methylPREDNISolone SOD SUCC 125 MG/2ML VIAL IV SCH ×3 (05:15→20:45)
[2017-08-08] MEDS: BLOOD SUGAR DIAGNOSTIC 1 EACH STRIP IN SCH ×4 (05:15→23:00)
[2017-08-08] MEDS: INSULIN REGULAR, HUMAN 100 UNIT/ML 3 ML VIAL SQ PRN ×4 (05:15→22:58)
[2017-08-08 05:18] LABS: CARBON DIOXIDE 32 mmol/L (21-32); CHLORIDE 96 mmol/L (98-107); CREATININE 3.4 mg/dL (0.6-1.3); GLUCOSE 289 mg/dL (74-106); MAGNESIUM 2.5 mg/dL (1.8-2.4); POTASSIUM 4.2 mmol/L (3.5-5.1); SODIUM SERUM 138 mmol/L (136-145)
[2017-08-08 05:20] LABS: UREA NITROGEN, BLOOD 98 mg/dL (7-18)
--- NOTE | 2017-08-08 06:25 | NUR ---
RN CLOSING NOTES PT REMAINS STABLE OF THE MOMENT. ALL DUE MEDS GIVEN, AM CARE PROVIDED. WILL ENDORSE BHARATH TO AM RN
--- NOTE | 2017-08-08 06:31 | NUR ---
pt received on vent settings and airway as charted. ambu bag at bedside alarms set and audible. vent plugged into red outlet. disconnect alarms checked. tolerating vent settings at this time Addendum: 08/08/17 at 0632 by REBEKAH SMITH RT Amended: Links added.
--- NOTE | 2017-08-08 07:16 | NUR ---
PT RECEIVED ORALLY VENTILATED ON THE VENT. VENT SETTINGS ORDERED BY TOLERATED WELL. VENT ALARMS CHECKED AND AUDIBLE. ETT IN PROPER POSITION AND SECURED. CUFF CHECKED WOVEN WOOD SHADE ASSEMBLER. BREATH SOUNDS DIM COARSE. SX'D WITH SMALL PALE SEMI THICK SECRETIONS. PT SEDATED, APPEARS COMFORTABLE. NO SOB AT THIS TIME. AMBU BAG AT HOB. CONTINUE CURRENT RESPIRATORY PLAN OF CARE. FIO2 TITRATED DOWN TO 60%. Addendum: 08/08/17 at 0816 by AMY GRISSOM RT Amended: Links added.
[2017-08-08] MEDS: PANTOPRAZOLE 40 MG VIAL IV SCH (08:20)
[2017-08-08] MEDS: ALLOPURINOL 100 MG TABLET GT SCH (08:21)
[2017-08-08] MEDS: CHOLECALCIFEROL 1,000 UNIT TABLET (VIT D3) PO SCH (08:21)
[2017-08-08] MEDS: LEVOTHYROXINE SODIUM 50 MCG TABLET GT SCH (08:21)
[2017-08-08] MEDS: AMIODARONE HCL 200 MG TABLET GT SCH (08:28)
[2017-08-08] MEDS: SEVELAMER CARBONATE 0.8 GM POWD.PACK GT SCH ×3 (08:29→17:22)
[2017-08-08] MEDS ORDERED: EPOETIN ALFA (10,000 UNIT) 10,000 UNIT/ML VIAL SQ ONE (09:30)
[2017-08-08] MEDS: DOXYCYCLINE 100 MG in IV D5W 100 ML IV SCH ×2 (09:54→20:47)
--- NOTE | 2017-08-08 11:38 | NUR ---
WOUND CARE CONSULT: PT NOT SEEN YET FOR SKIN ASSESSMENT DUE TO PT HAVING DIALYSIS AT THIS TIME. ALL SKIN PROTECTION MEASURES IN PLACE AND DISCUSSED WITH NURSING STAFF. PT ON KENN ISOFLEX LOW AIRLOSS BED. PT HAS RECTAL TUBE IN PLACE. WILL SEE PT PT CONDITION PERMITS. MD IN AGREEMENT WITH PLAN OF CARE.
--- NOTE | 2017-08-08 12:06 | NUR ---
RN NOTES BLOOD TRANSFUSION GIVEN WITH HEMODIALYSIS
--- NOTE | 2017-08-08 13:16 | NUR ---
DURING DIALYSIS PATIENT BEGAN TO DESATURATE, FIO2 INCREASED TO 70%
--- NOTE | 2017-08-08 18:43 | NUR ---
RN CLOSING NOTES PT REMAINS ON MECH VENT AND CURRENT SETTINGS TOLERATED WELL. TUBE FEEDING TOLERATED WELL. JOSE PICC LINE SECURED WITH INTACT DRESSING. PT WITH CVP, ON DIPRIVAN DRIP AND TOLERATING WELL. JEROME SOFT RESTRAINTS IN PLACE; SKIN AND CIRCULATION WNL. TURNED AND REPOSITIONED PT WITH BOTH HEELS KEPT ELEVATED; GOOD SKIN CARE PROVIDED. BRADSHAW CATH DRAINING TO YELLOW CLOUDY URINE. FLEXISEAL WITH DARK GREENISH STOOL. RT GROIN HD ACCESS SECURED WITH PRESSURE DRESSING. SINUS RHYTHM ON THE MONITOR. WILL ENDORSE TO NEXT SHIFT FOR CONTINUITY OF CARE IN STABLE CONDITION
--- NOTE | 2017-08-08 20:38 | NUR ---
received pt from day shift, sedated on Diprivan at 30mcg, SR, CVP monitoring, on the vent, lungs congested, some pitting/ non pitting edema all extremities, f/c OK output, OG tube to feeding tolerates well, rectal tube in diarrhea, restraints on, v/s stable, no pain, pt turned and repositioned.
[2017-08-08] MEDS: LATANOPROST EYE DROP 0.005% 2.5 ML BOTTLE OP SCH (21:11)
--- NOTE | 2017-08-08 22:11 | NUR ---
PATIENT RECEIVED ON MECHANICAL VENTILATION, INTUBATED WITH ET TUBE 7.5 @ 22CM. VENT PLUGGED INTO RED OUTLET. AMBU BAG @ HOB. SUCTION DONE, MODERATE THICK WHITE YELLOW SECRETIONS NOTED. ALARMS ON AND AUDIBLE. WILL MONITOR CLOSELY. Addendum: 08/08/17 at 2216 by SERGIO GLYNN RT Amended: Links added.
[2017-08-08] MEDS: INSULIN GLARGINE, 100 UNIT/ML CARTRIDGE SQ SCH (22:56)
[2017-08-09] VITALS (41 sets, daily range): BP systolic 97–145; BP diastolic 29–75
--- NOTE | 2017-08-09 00:47 | NUR ---
pt is resting in the bed, v/s stable, no pain, pt turned and repositioned q2hrs.
[2017-08-09] MEDS: PROPOFOL 100 ML IV PRN ×4 (03:05→19:36)
--- NOTE | 2017-08-09 04:18 | NUR ---
pt is resting in the bed, no acute distress overnight, SR, sedated on Diprivan at 30mcg, tolerates feeding, v/s stable, no pain, black tarry stool and some pink tinged sputum also noted, pt cleaned, changed and repositioned q2hrs.
[2017-08-09 04:29] LABS: HEMATOCRIT 25 % (33-45); LYMPHOCYTES # (AUTO) 0.2 /CMM (0.8-4.8); LYMPHOCYTES % (AUTO) 0.7 % (20.0-44.0); MEAN CORPUSCULAR HGB CONC 33 g/dl (31.0-36.0); MEAN CORPUSCULAR VOLUME 88 fL (82-100); MONOCYTES # (AUTO) 0.4 /CMM (0.1-1.30); MONOCYTES % (AUTO) 1.8 % (2.0-12.0); NEUTROPHILS # (AUTO) 23.1 /CMM (1.8-8.9); NEUTROPHILS % (AUTO) 97.5 % (43.0-81.0); PLATELET COUNT (AUTO) 88 /CMM (150-450); RED BLOOD CELL COUNT(AUTO) 2.81 MIL/uL (4.0-5.2); WHITE BLOOD COUNT (AUTO) 23.7 K/uL (4.3-11.0)
[2017-08-09] MEDS: MEROPENEM 500 MG in IV NS 0.9% 50 ML IV SCH (04:37)
[2017-08-09] MEDS: methylPREDNISolone SOD SUCC 125 MG/2ML VIAL IV SCH ×3 (04:37→21:30)
[2017-08-09 04:49] LABS: CALCIUM, SERUM 9.1 mg/dL (8.5-10.1); CARBON DIOXIDE 32 mmol/L (21-32); CHLORIDE 102 mmol/L (98-107); CREATININE 2.5 mg/dL (0.6-1.3); GLUCOSE 254 mg/dL (74-106); MAGNESIUM 2.3 mg/dL (1.8-2.4); PHOSPHORUS 6.3 mg/dL (2.5-4.9); POTASSIUM 4.4 mmol/L (3.5-5.1); SODIUM SERUM 141 mmol/L (136-145)
[2017-08-09 04:50] LABS: UREA NITROGEN, BLOOD 84 mg/dL (7-18)
[2017-08-09 04:53] LABS: BAND % (MANUAL) 11 % (0.0-5.0); LYMPHOCYTES % (MANUAL) 3 % (16-48); MONOCYTES % (MANUAL) 2 % (0-11.0); NEUTROPHILS % (MANUAL) 84 (42-76)
[2017-08-09] MEDS: INSULIN REGULAR, HUMAN 100 UNIT/ML 3 ML VIAL SQ PRN ×3 (05:07→17:12)
[2017-08-09] MEDS: BLOOD SUGAR DIAGNOSTIC 1 EACH STRIP IN SCH ×3 (05:09→17:07)
[2017-08-09] MEDS: ALLOPURINOL 100 MG TABLET GT SCH (08:36)
[2017-08-09] MEDS: PANTOPRAZOLE 40 MG VIAL IV SCH (08:37)
[2017-08-09] MEDS: AMIODARONE HCL 200 MG TABLET GT SCH (08:37)
[2017-08-09] MEDS: LEVOTHYROXINE SODIUM 50 MCG TABLET GT SCH (08:37)
--- NOTE | 2017-08-09 09:00 | NUR ---
RESEARCH CONSULTANT SEEN AND EXAMINED BY DR. ESTRELLA AND ORDERED TO TITRATE DOWN FIO2 TO 55 % AND ABG AFTER ONE HOUR ORDERS CARRIED OUT RT INFORMED
[2017-08-09] MEDS ORDERED: NOREPINEPHRINE 8 MG in IV NS 0.9% 500 ML IV PRN (09:03)
[2017-08-09] MEDS: CHOLECALCIFEROL 1,000 UNIT TABLET (VIT D3) PO SCH (09:03)
[2017-08-09] MEDS: SEVELAMER CARBONATE 0.8 GM POWD.PACK GT SCH ×3 (09:49→17:07)
[2017-08-09] MEDS: DOXYCYCLINE 100 MG in IV D5W 100 ML IV SCH ×2 (10:01→21:30)
--- NOTE | 2017-08-09 11:58 | NUR ---
PYTHON PROGRAMMER RECEIVED PATIENT ON MECHANICAL VENTILATORY SUPPORT SATURATING 97% ON 60% FI02 ON ETT, SUCTIONED THICK SECRETION IN MINIMAL AMOUNT ON DIPRIVAN AT 30 MCGS, AGITATION NOTED AT TIMES FACIAL GRIMACES NOTED AT TIMES ON FEEDING TUBE, MINIMAL RESIDUAL NOTED BRADSHAW CATHETER AND FLEXISEAL IN PLACED MONITORED CLOSELY Addendum: 08/09/17 at 1201 by MARA SALDIVAR RN RECEIVED PATIENT AT 0730
[2017-08-09] MEDS: NEPRO 1,000 ML BOTTLE GT PRN (19:41)
--- NOTE | 2017-08-09 19:43 | NUR ---
RT NOTE PT RECEIVED ORALLY INTUBATED WITH ETT #7.5 22CM SECURED AT THE LIP. PATIENT RECEIVED ON [facility] VENT. FIO2 INCREASED FROM 55% TO 60% DUE TO SPO2 89-90%. PRIMARY NURSE GERALD NOTIFIED. NO SIGNS OF RESPIRATORY DISTRESS NOTED. MECHANICAL VENT PLUGGED INTO RED OUTLET. VENT ALARMS CHECKED AND AUDIBLE. CUFF CHECKED STUDIO OPERATIONS ENGINEER IN CHARGE. NO SOB AT THIS TIME. EMERGENCY EQUIPMENT AT BEDSIDE. WILL CONTINUE TO MONITOR. Addendum: 08/10/17 at 0438 by AMY SALAS RT Amended: Links added.
--- NOTE | 2017-08-09 21:16 | NUR ---
received pt from day shift, sedated on Diprivan at 40mcg, SR, CVP monitoring, on the vent, lungs congested, some edema, OG to feeding, tolerates well, f/c good output, restraints on, rectal tube in, diarrhea, v/s stable, no pain, pt turned and repositioned.
[2017-08-09] MEDS: LATANOPROST EYE DROP 0.005% 2.5 ML BOTTLE OP SCH (21:33)
[2017-08-10] VITALS (66 sets, daily range): BP systolic 41–164; BP diastolic 21–115
[2017-08-10] MEDS: INSULIN GLARGINE, 100 UNIT/ML CARTRIDGE SQ SCH ×2 (00:14→22:25)
[2017-08-10] MEDS: INSULIN REGULAR, HUMAN 100 UNIT/ML 3 ML VIAL SQ PRN ×5 (00:16→23:42)
[2017-08-10] MEDS: BLOOD SUGAR DIAGNOSTIC 1 EACH STRIP IN SCH ×5 (00:17→23:53)
--- NOTE | 2017-08-10 00:44 | NUR ---
pt is resting in the bed, sedated on Diprivan at 40mcg, tolerates feeding, v/s stable, no pain, pt turned and repositioned q2hrs.
[2017-08-10] MEDS: PROPOFOL 100 ML IV PRN ×5 (00:46→21:45)
--- NOTE | 2017-08-10 04:41 | NUR ---
pt is resting in the bed, sedated on Diprivan at 40mcg, SR, tolerates feeding, good urine output, v/s stable, no pain, pt cleaned, changed and repositioned q2hrs.
[2017-08-10] MEDS: methylPREDNISolone SOD SUCC 125 MG/2ML VIAL IV SCH ×3 (04:45→21:55)
[2017-08-10] MEDS: MEROPENEM 500 MG in IV NS 0.9% 50 ML IV SCH (04:45)
--- NOTE | 2017-08-10 08:00 | NUR ---
BUILDING ENGINEER NOTES DIPRIVAN OFF FOR SEDATION VACATION , PT STABLE AT THIS TIME WILL CONTINUE TO MONITOR
--- NOTE | 2017-08-10 08:00 | NUR ---
SALES REPRESENTATIVE EDUCATION COURSES NOTES RECEIVED PATIENT SEDATED , NOT IN ACUTE DISTRESS , RESPIRATIONS EVEN AND UNLABORED , SPO2 OF 100% VIA MECHANICAL VENT SETTINGS ORDERED , ETT 7.05/[address] , SR 80 ON BEDSIDE MONITOR , OGT IN PLACE WITH NEPHRO @ 35ML/HR WITH NO RESIDUALS NOTED , FC DRAINING VIA GRAVITY , FLEXI SEAL DRAINING VIA GRAVITY , IV OF R WRIST # 20 PATENT AND INTACT , JOSE PICC LINE PATENT AND INTACT WITH DIPRIVAN @ 45MCG/KG/MIN , NS @ TKO , R FEMORAL TLC C/D/I , ALL NEEDS ATTENDED , BED ON LOW AND LOCKED POSITION , SIDE RAILS X2 ,CALL LIGHT WITHIN REACH , HOB @ 35 , WILL CONTINUE TO MONITOR
[2017-08-10] MEDS: SEVELAMER CARBONATE 0.8 GM POWD.PACK GT SCH ×3 (08:23→17:38)
[2017-08-10] MEDS: LEVOTHYROXINE SODIUM 50 MCG TABLET GT SCH (08:23)
[2017-08-10] MEDS: PANTOPRAZOLE 40 MG VIAL IV SCH (08:23)
[2017-08-10] MEDS: PROSOURCE / PROSTAT (PYXIS) 30 ML UDC GT SCH (08:23)
[2017-08-10] MEDS: CHOLECALCIFEROL 1,000 UNIT TABLET (VIT D3) PO SCH (08:23)
[2017-08-10] MEDS: VIT B CMPLX 3/FA/VIT C/BIOTIN 1 TAB TABLET PO SCH (08:23)
[2017-08-10] MEDS: ALLOPURINOL 100 MG TABLET GT SCH (08:23)
--- NOTE | 2017-08-10 08:24 | NUR ---
PT RECEIVED ORALLY INTUBATED ETT #7.5 22CM SECURED AT THE LIP. PT RECEIVED ON [facility] VENTILATION. NO SIGNS OF RESPIRATORY DISTRESS NOTED. MECHANICAL VENT PLUGGED INTO RED OUTLET. VENT ALARMS CHECKED AND AUDIBLE. CUFF CHECKED ADVERTISING TEACHER. NO SOB AT THIS TIME. AMBU BAG AT BEDSIDE. WILL CONTINUE TO MONITOR. Addendum: 08/10/17 at 0825 by AMY GRISSOM RT Amended: Links added.
[2017-08-10] MEDS: AMIODARONE HCL 200 MG TABLET GT SCH (08:26)
--- NOTE | 2017-08-10 08:30 | NUR ---
OBSTETRIC ANAESTHETIST NOTES DIPRIVAN HELD FOR SEDATION VACATION , BILATERAL SOFT WRIST RESTRAINS IN PLACE , WILL CONTINUE TO MONITOR
--- NOTE | 2017-08-10 09:10 | NUR ---
LITIGATION ATTORNEY NOTES SPOKE WITH DR LEONARDO , DISCUSSED PT OFF SEDATION , SBP OF 50'S , HR OF AFIB 130-150'S , MD AWARE . VERIFIED IF HE WANTS TO ORDER NEOSYNEPRINE DUE TO HR , PER MD OK TO START JENNIFER TO KEEP SBP ABOVE 90 , ORDERS CARRIED OUT
[2017-08-10] MEDS: DOXYCYCLINE 100 MG in IV D5W 100 ML IV SCH ×2 (09:32→21:55)
[2017-08-10] MEDS: PHENYLEPHRINE 40 MG in IV D5W 250 ML IV PRN (09:51)
--- NOTE | 2017-08-10 09:59 | NUR ---
CAR LUBRICATOR NOTES PATIENT OFF SEDATION , STARTED WAKING UP , OPENS EYES, DOESN'T FOLLOW COMMANDS , RESTARTED DIPRIVAN DUE TO HR OF AFIB 160'S , NEOSYNEPRINE STARTED @ 100MCG/MIN , PAGED DR LEONARDO FOR HR OF 160'S AFIB AWAITING FOR CALL BACK
--- NOTE | 2017-08-10 10:19 | NUR ---
DELIVERY ASSOCIATE NOTES PAGED DR LEONARDO , DISCUSSED PT IS CURRENTLY SEDATED WITH PROPOFOL @ 40MCG/KG/MIN , NO SIGNS OF DISCOMFORT , BP OF 118/64 ON NEOSYNEPRINE 100MCG/MIN AFIB 160-170BMP , [facility] TO DOSE RECEIVED 1018 . HR WENT DOWN TO 70'S V PACING ON BEDSIDE MONITOR .
--- NOTE | 2017-08-10 10:20 | NUR ---
MOVIE EDITOR NOTES AMIO BOLUS AND DRIP NOT GIVEN HEART RATE WENT TO DOWN V PACING 60-70'S , V/S STABLE AT THIS TIME , WILL CONTINUE TO MONITOR
[2017-08-10 11:15] LABS: HEMATOCRIT 27 % (33-45); HEMOGLOBIN 8.8 g/dL (11.5-14.8); LYMPHOCYTES # (AUTO) 0.7 /CMM (0.8-4.8); LYMPHOCYTES % (AUTO) 2.1 % (20.0-44.0); MEAN CORPUSCULAR HGB CONC 32 g/dl (31.0-36.0); MEAN CORPUSCULAR VOLUME 89 fL (82-100); MONOCYTES # (AUTO) 1.2 /CMM (0.1-1.30); MONOCYTES % (AUTO) 3.6 % (2.0-12.0); NEUTROPHILS # (AUTO) 33.1 /CMM (1.8-8.9); NEUTROPHILS % (AUTO) 94.3 % (43.0-81.0); PLATELET COUNT (AUTO) 131 /CMM (150-450); RDW COEFFICIENT OF VARIATION 19.7 (11.5-15.0); RED BLOOD CELL COUNT(AUTO) 3.08 MIL/uL (4.0-5.2)
[2017-08-10 11:17] LABS: CARBON DIOXIDE 30 mmol/L (21-32); CHLORIDE 103 mmol/L (98-107); CREATININE 2.2 mg/dL (0.6-1.3); GLUCOSE 296 mg/dL (74-106); POTASSIUM 4.2 mmol/L (3.5-5.1); SODIUM SERUM 141 mmol/L (136-145)
[2017-08-10 11:18] LABS: UREA NITROGEN, BLOOD 84 mg/dL (7-18)
[2017-08-10] MEDS ORDERED: FEE PK DOSING 1 MIN EA MC ONE (11:30)
[2017-08-10] MEDS ORDERED: AMIODARONE 150 MG in IV D5W 100 ML IV ONE (11:30)
--- NOTE | 2017-08-10 11:48 | NUR ---
ARMORED CABLE MACHINE OPERATOR NOTES NOTIFIED DR ESTRELLA REGARDING ANG RESULT , VENT CHANGED TO AC 20 TV 400 PEEP 12 AND FIO2 TITRATION TO KEEP SPO2 ABOVE 94% , ORDERS CARRIED OUT
[2017-08-10 11:58] LABS: WHITE BLOOD COUNT (AUTO) 35.1 K/uL (4.3-11.0)
[2017-08-10] MEDS ORDERED: VANCOMYCIN 1 GM in IV D5W 250 ML IV ONE (12:00)
[2017-08-10] MEDS: AMIODARONE 900 MG in IV D5W 482 ML IV PRN (12:14)
[2017-08-10 12:28] LABS: BAND % (MANUAL) 5 % (0.0-5.0); LYMPHOCYTES % (MANUAL) 1 % (16-48); MONOCYTES % (MANUAL) 2 % (0-11.0); NEUTROPHILS % (MANUAL) 92 (42-76)
--- NOTE | 2017-08-10 12:34 | NUR ---
WOUND CARE CONSULT: PT SEEN FOR PERIANAL OPEN SKIN (INCONTINENCE ASSOCIATED SKIN DAMAGE) AROUND RECTAL TUBE. SOME LEAKAGE OF LIQUID STOOL NOTED AROUND RECTAL TUBE. SKIN TO BE KEPT CLEAN AND DRY. DISCUSSED SKIN PROTECTION WITH NURSING STAFF. PT ON KENN ISOFLEX LOW AIRLOSS BED. ALL SKIN PROTECTION MEASURES IN PLACE. WILL SEE PRN. MARTINEZ IN AGREEMENT WITH PLAN OF CARE. Addendum: 08/10/17 at 1236 by NELL NAVARRETE WNDNU Amended: Links added.
[2017-08-10] MEDS: NEPRO 1,000 ML BOTTLE GT PRN (17:42)
--- NOTE | 2017-08-10 19:00 | NUR ---
ADULT HEALTH CLINICAL NURSE SPECIALIST NOTES RECEIVED PATIENT WITH OET TO THE VENTILATOR ON AC MODE,SEDATED ON PROPOFOL DRIP BUT STILL RESPONSIVE TO PAIN,GRIMACES AND WITHDRAWS TO PAIN,SLIGHTLY MOVE UPPER AND LOWER EXTREMITIES ,MAINTAINED ON BILATERAL SOFT WRIST RESTRAINTS TO PREVENT SELF EXTUBATION. oPICCLINE VIA JOSE,BOTH ARMS EDEMATOUS AND HANDS COOL TO TOUCH.OGT WITH ON GOING FEEDING,ASPIRATION PRECAUTION OBSERVED.dIALYSIS CATHETER VIA RIGHT GROIN,INTACT,(-) BLEEDING.cOMFORT CARE DONE,NEEDS ATTENDED.
--- NOTE | 2017-08-10 20:03 | NUR ---
PT RECEIVED ORALLY INTUBATED 7.5 ETT SECURED AT 22 CM AT THE LIP. PT TOLERATING VENT SETTINGS. NO RESP DISTRESS NOTED AT THIS TIME. SX'D SMALL AMT OF WHITE THICK SECRETIONS. VENT ALARMS SET AND AUDIBLE. AMBU BAG AT BEDSIDE. ETT CUFF ANALYTICAL STATISTICIAN. VENT PLUGGED INTO RED OUTLET. WILL CONTINUE TO MONITOR.
[2017-08-10] MEDS: LATANOPROST EYE DROP 0.005% 2.5 ML BOTTLE OP SCH (21:57)
[2017-08-11] VITALS (94 sets, daily range): BP systolic 56–140; BP diastolic 32–101
--- NOTE | 2017-08-11 | NUR ---
EXCELLENCE SPECIALIST NOTES STATUS UNCHAGED,STILL SEDTAED WITH PORPOFOL BUT RESPONDS TO PAIN,MAINTAINED ON BILATERAL SOFT WRIST RESTRAINTS.COMFORT CARE DONE.
[2017-08-11] MEDS: PROPOFOL 100 ML IV PRN ×4 (02:53→22:43)
[2017-08-11] MEDS: MEROPENEM 500 MG in IV NS 0.9% 50 ML IV SCH (04:42)
[2017-08-11] MEDS: methylPREDNISolone SOD SUCC 125 MG/2ML VIAL IV SCH ×3 (04:42→21:47)
[2017-08-11 04:50] LABS: HEMATOCRIT 22 % (33-45); HEMOGLOBIN 7.1 g/dL (11.5-14.8); LYMPHOCYTES # (AUTO) 0.5 /CMM (0.8-4.8); LYMPHOCYTES % (AUTO) 1.7 % (20.0-44.0); MEAN CORPUSCULAR HGB CONC 32 g/dl (31.0-36.0); MEAN CORPUSCULAR VOLUME 90 fL (82-100); MONOCYTES # (AUTO) 0.3 /CMM (0.1-1.30); MONOCYTES % (AUTO) 0.9 % (2.0-12.0); NEUTROPHILS # (AUTO) 29.6 /CMM (1.8-8.9); NEUTROPHILS % (AUTO) 97.4 % (43.0-81.0); PLATELET COUNT (AUTO) 129 /CMM (150-450); RDW COEFFICIENT OF VARIATION 19.9 (11.5-15.0); RED BLOOD CELL COUNT(AUTO) 2.46 MIL/uL (4.0-5.2)
[2017-08-11 05:02] LABS: WHITE BLOOD COUNT (AUTO) 30.3 K/uL (4.3-11.0)
[2017-08-11 05:09] LABS: CALCIUM, SERUM 8.7 mg/dL (8.5-10.1); CARBON DIOXIDE 32 mmol/L (21-32); CHLORIDE 103 mmol/L (98-107); CREATININE 2.2 mg/dL (0.6-1.3); GLUCOSE 226 mg/dL (74-106); MAGNESIUM 1.8 mg/dL (1.8-2.4); PHOSPHORUS 5.7 mg/dL (2.5-4.9); POTASSIUM 3.6 mmol/L (3.5-5.1); SODIUM SERUM 143 mmol/L (136-145)
[2017-08-11 05:10] LABS: UREA NITROGEN, BLOOD 95 mg/dL (7-18)
--- NOTE | 2017-08-11 05:40 | NUR ---
CONDUCTOR AND ENGINEER NOTES HEART RATE IN THE 130'S BRIEFLY THEN CONVERTED TO COMPLETE AV PACING . 0600 HEART RHTYHM KEEPS GOING IN AND OUT OF RAPID AFIB IN THE 130'S THEN CONVERTS TO AV PACING.
[2017-08-11 05:42] LABS: LYMPHOCYTES % (MANUAL) 2 % (16-48); MONOCYTES % (MANUAL) 3 % (0-11.0); NEUTROPHILS % (MANUAL) 95 (42-76)
[2017-08-11] MEDS: INSULIN REGULAR, HUMAN 100 UNIT/ML 3 ML VIAL SQ PRN ×4 (06:24→23:03)
[2017-08-11] MEDS: BLOOD SUGAR DIAGNOSTIC 1 EACH STRIP IN SCH ×4 (06:27→23:03)
--- NOTE | 2017-08-11 06:30 | NUR ---
INSPECTOR HEALTH CARE FACILITIES NOTES HEART RATE IS SUSTAINING UP TO 140'S-150'S AND BP DROPPING INTO THE 70'S-60'S.WILL START NEOSYNEPHRINE FOR BP SUPPORT AND START AMIODARONE DRIP FOR RATE CONTROL. 0700 REPORT GIVEN TO MARA CHAN.
[2017-08-11] MEDS: AMIODARONE 900 MG in IV D5W 482 ML IV PRN (07:00)
--- NOTE | 2017-08-11 07:00 | NUR ---
FISHERY DIVISION CHIEF RECEIVED PATIENT SEDATED ON 40 MCGS DIPRIVAN ON MECHANICAL VENTILATORY SUPPORT OF 70% FI02 AT 98% SATURATION SVT NOTED AT 150'S HR SBP AT 50'S , NEOSYNEPHIRINE IS RUNNING ON FEEDING AT 35 OF NEPHRO, LARGE RESIDUAL NOTED COD EXTREMITIES NOTED UPPER AND LOWER BILATERAL PITTING EDEMA NOTED WITH BRADSHAW CATHETER DRAINING TO URINE BAG AT ADEQUATE AMOUNT
--- NOTE | 2017-08-11 07:10 | NUR ---
SHEET ROCK TAPER HELPER AMIODARONE DRIP GIVEN ORDERED MONITORED CLOSELY DIPRIVAN TITRATED DOWN TO 35 NMGS
[2017-08-11] MEDS: PHENYLEPHRINE 40 MG in IV D5W 250 ML IV PRN ×2 (07:25→17:59)
[2017-08-11] MEDS: LEVOTHYROXINE SODIUM 50 MCG TABLET GT SCH (07:43)
[2017-08-11] MEDS ORDERED: AMIODARONE 900 MG in IV D5W 500 ML IV PRN (08:30)
[2017-08-11] MEDS ORDERED: AMIODARONE 150 MG in IV D5W 100 ML IV ONE (08:30)
[2017-08-11] MEDS: VIT B CMPLX 3/FA/VIT C/BIOTIN 1 TAB TABLET PO SCH (08:35)
[2017-08-11] MEDS: ALLOPURINOL 100 MG TABLET GT SCH (08:35)
[2017-08-11] MEDS: CHOLECALCIFEROL 1,000 UNIT TABLET (VIT D3) PO SCH (08:35)
[2017-08-11] MEDS: SEVELAMER CARBONATE 0.8 GM POWD.PACK GT SCH ×3 (08:35→17:23)
[2017-08-11] MEDS: PROSOURCE / PROSTAT (PYXIS) 30 ML UDC GT SCH (08:40)
[2017-08-11] MEDS: DOXYCYCLINE 100 MG in IV D5W 100 ML IV SCH (08:43)
[2017-08-11] MEDS: PANTOPRAZOLE 40 MG VIAL IV SCH (09:21)
[2017-08-11] MEDS ORDERED: AMIODARONE 900 MG in IV D5W 482 ML IV PRN (09:30)
[2017-08-11] MEDS ORDERED: HEPARIN SODIUM, PORCINE 1000 UNIT/1 ML VIAL IV ONE (09:30)
--- NOTE | 2017-08-11 10:14 | NUR ---
PRODUCTION GENERALIST DIALYSIS ON GOING, 1 PRBC GIVEN WITH DIALYSIS MONITORED CLOSELY
--- NOTE | 2017-08-11 11:08 | NUR ---
MACHINE TOOL ELECTRICIAN AMIODARONE BOLUS ORDERED EARLIER GIVEN ORDERED SEEN AND EXAMINED BY DR. WARREN WITH NEW ORDERS MADE AND CARRIED OUT
[2017-08-11] MEDS: MICAFUNGIN SODIUM 100 MG in IV NS 0.9% 100 ML IV SCH ×2 (11:09→23:02)
--- NOTE | 2017-08-11 11:40 | NUR ---
DUAL HOSE CEMENTER CONVERTED TO SINUS RHYTHM AT 1140AM AT 60'S HEART RATE STILL ON NEOPSYNPHRINE AT LOW DOSE Addendum: 08/11/17 at 1159 by MARA SALDIVAR RN ON CONTINUOUS AMIODARONE DRIP
[2017-08-11 12:53] LABS: ABG BASE EXCESS 2.1 mmol/L; ABG OXYGEN SATURATION 96.7 % (92.0-98.5); ABG PCO2 40.7 mmHg (35.0-45.0); ABG PH 7.432 (7.350-7.450); ABG PO2 101.1 mmHg (75.0-100.0); AaDO2 281.9 mmHg; COHb 0.3 % (0.5-1.5); MetHb 0.7 % (0.0-1.5); O2Hb 95.7 % (94.0-97.0); PEEP,BG 12 cm H2O; SITE, ABG Right Radial
[2017-08-11] MEDS ORDERED: VANCOMYCIN 500 MG in IV NS 0.9% 100 ML IV PRN (16:00)
[2017-08-11] MEDS: LATANOPROST EYE DROP 0.005% 2.5 ML BOTTLE OP SCH (22:33)
[2017-08-11] MEDS: NEPRO 1,000 ML BOTTLE GT PRN (22:33)
[2017-08-11] MEDS: IV NS 0.9% 100 ML IV PRN (22:36)
[2017-08-11] MEDS: INSULIN GLARGINE, 100 UNIT/ML CARTRIDGE SQ SCH (22:56)
[2017-08-12] VITALS (65 sets, daily range): BP systolic 71–172; BP diastolic 34–87
--- NOTE | 2017-08-12 01:02 | NUR ---
PT RECEIVED ORALLY INTUBATED ETT #7.5 22CM SECURED AT THE LIP. PT RECEIVED ON [facility] VENTILATION. NO SIGNS OF RESPIRATORY DISTRESS NOTED. MECHANICAL VENT PLUGGED INTO RED OUTLET. VENT ALARMS CHECKED AND AUDIBLE. CUFF CHECKED JOB SETTER HONING. NO SOB AT THIS TIME. AMBU BAG AT BEDSIDE. WILL CONTINUE TO MONITOR. Addendum: 08/12/17 at 0102 by ALEX RAMOS RT Amended: Links added.
--- NOTE | 2017-08-12 04:00 | NUR ---
LINT CLEANER PT NOTED GRIMACING AND REACHING FOR ET TUBE; TITRATED PROPOFOL PER PROTOCOL.
[2017-08-12 05:20] LABS: CALCIUM, SERUM 8.7 mg/dL (8.5-10.1); CARBON DIOXIDE 29 mmol/L (21-32); CHLORIDE 100 mmol/L (98-107); GLUCOSE 225 mg/dL (74-106); POTASSIUM 3.7 mmol/L (3.5-5.1); SODIUM SERUM 139 mmol/L (136-145)
[2017-08-12 05:21] LABS: UREA NITROGEN, BLOOD 86 mg/dL (7-18)
[2017-08-12] MEDS: BLOOD SUGAR DIAGNOSTIC 1 EACH STRIP IN SCH ×3 (05:29→17:35)
[2017-08-12] MEDS: methylPREDNISolone SOD SUCC 125 MG/2ML VIAL IV SCH ×3 (05:30→21:33)
[2017-08-12] MEDS: MEROPENEM 500 MG in IV NS 0.9% 50 ML IV SCH (05:30)
[2017-08-12] MEDS: INSULIN REGULAR, HUMAN 100 UNIT/ML 3 ML VIAL SQ PRN ×3 (05:33→17:46)
[2017-08-12] MEDS: PROPOFOL 100 ML IV PRN ×5 (06:20→22:33)
--- NOTE | 2017-08-12 07:30 | NUR ---
PROPOSAL DIRECTOR RECEIVED PATIENT SEDATED AT 40 MCGS PROPOFOL ON MECHANICAL VENTILATORY SUPPORT SATURATING 98% AFEBRILE ANASARCA NOTED SECRETION SUCTIONED THRU MOUTH IN LARGE AMOUNT, TENACIOUS AND WHITISH CLEAR ON FEEDING TUBE, SMALL RESIDUAL NOTED BRADSHAW CATHETER WITH WHITISH AND CHEESY-LIKE DISCHARGE SEEN AT THE CATHETER TUBINGS URINE OUTPUT AT SMALL AMOUNT
--- NOTE | 2017-08-12 07:35 | NUR ---
RT PATIENT REC'D ORALLY INTUBATED ON [facility] VENT WITH SETTINGS SET BY MD GREG CYR. VENT ALARMS CHECKED + AUDIBLE. CUFF PRESSURE CHECKED TAPE WEAVER. SUCTIONED WITH BLAYNE TOMASTHICK SECRETIONS. B/S DIM. GREENEU BAG AT HOB Addendum: 08/12/17 at 1250 by ALVINO HOWE RT Amended: Links added.
[2017-08-12] MEDS: PANTOPRAZOLE 40 MG VIAL IV SCH (08:17)
[2017-08-12] MEDS: ALLOPURINOL 100 MG TABLET GT SCH (08:18)
[2017-08-12] MEDS: CHOLECALCIFEROL 1,000 UNIT TABLET (VIT D3) PO SCH (08:18)
[2017-08-12] MEDS: VIT B CMPLX 3/FA/VIT C/BIOTIN 1 TAB TABLET PO SCH (08:18)
[2017-08-12] MEDS: SEVELAMER CARBONATE 0.8 GM POWD.PACK GT SCH ×3 (08:18→17:37)
[2017-08-12] MEDS: LEVOTHYROXINE SODIUM 50 MCG TABLET GT SCH (08:28)
[2017-08-12] MEDS: PROSOURCE / PROSTAT (PYXIS) 30 ML UDC GT SCH (08:28)
[2017-08-12 08:39] LABS: HEMATOCRIT 26 % (33-45); HEMOGLOBIN 8.4 g/dL (11.5-14.8); LYMPHOCYTES # (AUTO) 0.4 /CMM (0.8-4.8); LYMPHOCYTES % (AUTO) 1.2 % (20.0-44.0); MEAN CORPUSCULAR HGB CONC 32 g/dl (31.0-36.0); MEAN CORPUSCULAR VOLUME 90 fL (82-100); MONOCYTES # (AUTO) 0.2 /CMM (0.1-1.30); MONOCYTES % (AUTO) 0.4 % (2.0-12.0); NEUTROPHILS # (AUTO) 35.9 /CMM (1.8-8.9); NEUTROPHILS % (AUTO) 98.4 % (43.0-81.0); PLATELET COUNT (AUTO) 118 /CMM (150-450); RDW COEFFICIENT OF VARIATION 18.5 (11.5-15.0); RED BLOOD CELL COUNT(AUTO) 2.91 MIL/uL (4.0-5.2)
[2017-08-12] MEDS: AMIODARONE HCL 200 MG TABLET PO SCH ×3 (08:50→17:37)
[2017-08-12 08:58] LABS: WHITE BLOOD COUNT (AUTO) 36.5 K/uL (4.3-11.0)
[2017-08-12 09:18] LABS: ABG BASE EXCESS 4.1 mmol/L; ABG OXYGEN SATURATION 92.9 % (92.0-98.5); ABG PCO2 48.4 mmHg (35.0-45.0); ABG PH 7.402 (7.350-7.450); ABG PO2 71.8 mmHg (75.0-100.0); AaDO2 230.3 mmHg; COHb 0.3 % (0.5-1.5); MetHb 0.7 % (0.0-1.5); PEEP,BG 12 cm H2O; SITE, ABG Right Radial; VT, ABG 400 mL
[2017-08-12] MEDS: PHENYLEPHRINE 40 MG in IV D5W 250 ML IV PRN (11:30)
[2017-08-12 11:49] LABS: BAND % (MANUAL) 8 % (0.0-5.0); LYMPHOCYTES % (MANUAL) 1 % (16-48); MONOCYTES % (MANUAL) 2 % (0-11.0); NEUTROPHILS % (MANUAL) 89 (42-76)
[2017-08-12] MEDS: MICAFUNGIN SODIUM 100 MG in IV NS 0.9% 100 ML IV SCH ×2 (12:06→23:37)
--- NOTE | 2017-08-12 13:49 | NUR ---
HIM CLERK NEOSYNEPHRINE RESTARTED BLOOD PRESSURE DROPPED ABRUPTLY BUT NEOSYNEPHRINE STOPPED AT ONCE SINCE BP WENT TO 170 SBP
[2017-08-12 18:47] LABS: APPEARANCE,URINE SL CLOUDY (CLEAR); BILIRUBIN,URINE NEGATIVE (NEGATIVE); BLOOD, URINE NEGATIVE Ery/uL (NEGATIVE); COLOR,URINE YELLOW (YELLOW); KETONES,URINE NEGATIVE (NEGATIVE); LEUKOCYTE ESTERASE ,URINE NEGATIVE (NEGATIVE); NITRITE, URINE NEGATIVE (NEGATIVE); PH,URINE 5.5 (5.0-8.0); PROTEIN,URINE NEGATIVE (NEGATIVE); UGLUCOSE 3+ mg/dL (NEGATIVE); UROBILINOGEN,URINE 0.2 EU/dL (0.2)
[2017-08-12 19:12] LABS: BACTERIA,URINE 1+ /HPF (None Seen); SQUAMOUS EPITHELIAL CELL,UR 0-2 /HPF (None Seen); YEAST,URINE Many /HPF (None Seen)
--- NOTE | 2017-08-12 19:30 | NUR ---
MEETING MANAGER RCD PT W/DX CHF; PT IS SEDATED ON PROPOFOL AT 40 MCG/KG/MIN. NSR ON MONITOR. INTUBATED 7.5@ 22 W/VENT SETTINGS AC 20 400 60%; PT HAS THICK BLOOD TINGED SECRETIONS. PERIANAL EXCORIATION WITH MEPILEX IN PLACE. JOSE PICC LINE W/NS @ TKO.
[2017-08-12] MEDS ORDERED: methylPREDNISolone SOD SUCC 125 MG/2ML VIAL IV SCH (21:00)
[2017-08-12] MEDS: LATANOPROST EYE DROP 0.005% 2.5 ML BOTTLE OP SCH (21:50)
[2017-08-12] MEDS: INSULIN GLARGINE, 100 UNIT/ML CARTRIDGE SQ SCH (22:32)
[2017-08-12] MEDS ORDERED: MICAFUNGIN SODIUM 100 MG VIAL IV ONE (23:25)
--- NOTE | 2017-08-12 23:30 | NUR ---
LOGISTICS INTERN BLOOD GLUCOSE 267; INSULIN ADMINISTERED PER PROTOCOL.
[2017-08-13] VITALS (92 sets, daily range): BP systolic 43–178; BP diastolic 25–115
--- NOTE | 2017-08-13 | NUR ---
TILE INSPECTOR PT NOTED WITH LARGE LIQUID STOOL; PER REPORT FLEXI SEAL NO LONGER STAYS IN PLACE. COMPLETE BED BATH RENDERED.
[2017-08-13] MEDS: BLOOD SUGAR DIAGNOSTIC 1 EACH STRIP IN SCH ×5 (00:10→23:16)
[2017-08-13] MEDS: INSULIN REGULAR, HUMAN 100 UNIT/ML 3 ML VIAL SQ PRN ×5 (00:11→23:17)
[2017-08-13] MEDS: NEPRO 1,000 ML BOTTLE GT PRN (04:12)
[2017-08-13] MEDS: IV NS 0.9% 100 ML IV PRN ×2 (04:15→14:36)
[2017-08-13] MEDS: MEROPENEM 500 MG in IV NS 0.9% 50 ML IV SCH (04:15)
[2017-08-13] MEDS: PROPOFOL 100 ML IV PRN ×4 (04:15→19:56)
[2017-08-13 05:16] LABS: CALCIUM, SERUM 8.9 mg/dL (8.5-10.1); CARBON DIOXIDE 30 mmol/L (21-32); CHLORIDE 101 mmol/L (98-107); CREATININE 2.3 mg/dL (0.6-1.3); GLUCOSE 220 mg/dL (74-106); POTASSIUM 3.6 mmol/L (3.5-5.1); SODIUM SERUM 140 mmol/L (136-145)
[2017-08-13 05:17] LABS: UREA NITROGEN, BLOOD 105 mg/dL (7-18)
--- NOTE | 2017-08-13 06:27 | NUR ---
RESIDENT ASSOCIATE BLOOD GLUCOSE 220; INSULIN GIVEN PER PROTOCOL.
--- NOTE | 2017-08-13 07:25 | NUR ---
RECEIVED PATIENT SEDATED; PROPOFOL RUNNING AT 40 AND VENT SETTINGS ORDERED. TOLERATING WELL WITH O2 SAT 100%. TUBE FEEDING RUNNING PER ORDER WITH NO RESIDUAL NOTED AT THIS TIME. NO RESTRAINTS NEEDED PATIENT IS SEDATED COMFORTABLY. FC IN PLACE DRAINING TO GRAVITY; PERICARE COMPLETED. IV SITE JOSE INTACT AND PATENT. RIGHT FEM CATH IN PLACE AND CLEAN/DRY. PATIENT BP STABLE AT THIS TIME; SHORT PERIOD OF PRESSORS PER RN THE OTHER DAY. PATIENT NOTED WITH BUTTOCK SKIN BREAKDOWN AND CONSTANT DIARRHEA WITH FLEXISEAL NOT ABLE TO BE PLACED THIS CONTINUED TO LEAK EVEN WHEN REPLACED; WILL CHECK SKIN FREQUENTLY AND KEEP DRY AND CLEAN. SAFETY PRECAUTIONS IN PLACE, HOB ELEVATED. WILL ROUND PRN.
[2017-08-13 07:55] LABS: HEMATOCRIT 25 % (33-45); HEMOGLOBIN 8.1 g/dL (11.5-14.8); LYMPHOCYTES # (AUTO) 0.5 /CMM (0.8-4.8); LYMPHOCYTES % (AUTO) 1.6 % (20.0-44.0); MEAN CORPUSCULAR HGB CONC 33 g/dl (31.0-36.0); MEAN CORPUSCULAR VOLUME 89 fL (82-100); MONOCYTES # (AUTO) 0.4 /CMM (0.1-1.30); MONOCYTES % (AUTO) 1.1 % (2.0-12.0); NEUTROPHILS # (AUTO) 32.4 /CMM (1.8-8.9); NEUTROPHILS % (AUTO) 97.3 % (43.0-81.0); PLATELET COUNT (AUTO) 139 /CMM (150-450); RED BLOOD CELL COUNT(AUTO) 2.78 MIL/uL (4.0-5.2)
[2017-08-13 07:57] LABS: WHITE BLOOD COUNT (AUTO) 33.3 K/uL (4.3-11.0)
[2017-08-13] MEDS: VIT B CMPLX 3/FA/VIT C/BIOTIN 1 TAB TABLET PO SCH (08:07)
[2017-08-13] MEDS: PROSOURCE / PROSTAT (PYXIS) 30 ML UDC GT SCH (08:07)
[2017-08-13] MEDS: SEVELAMER CARBONATE 0.8 GM POWD.PACK GT SCH ×3 (08:07→17:03)
[2017-08-13] MEDS: CHOLECALCIFEROL 1,000 UNIT TABLET (VIT D3) PO SCH (08:07)
[2017-08-13] MEDS: LEVOTHYROXINE SODIUM 50 MCG TABLET GT SCH (08:07)
[2017-08-13] MEDS: PANTOPRAZOLE 40 MG VIAL IV SCH (08:07)
[2017-08-13] MEDS: Z GUARD REMEDY 2 OZ OINT TP PRN ×2 (08:07→12:24)
[2017-08-13] MEDS: ALLOPURINOL 100 MG TABLET GT SCH (08:07)
[2017-08-13] MEDS: methylPREDNISolone SOD SUCC 125 MG/2ML VIAL IV SCH ×3 (08:08→17:02)
--- NOTE | 2017-08-13 08:20 | NUR ---
PT BP 59/33 REPOSITIONED, HOB LOWERED, TUBE FEEDING STOPPED, LEGS ELEVATED. ICER AIR CONDITIONING AWARE AND AT BEDSIDE. CALLED PHARMACY FOR JENNIFER PATIENT HR OVER 100.
[2017-08-13] MEDS: AMIODARONE HCL 200 MG TABLET PO SCH ×3 (08:23→16:32)
[2017-08-13] MEDS: PHENYLEPHRINE 40 MG in IV D5W 250 ML IV PRN (08:37)
--- NOTE | 2017-08-13 08:48 | NUR ---
DR LEDESMA AT BEDSIDE. UPDATED ON PATIENT CONDITION. NEW BP 119/ 92 JENNIFER DRIP RUNNING DOCUMENTED. HR AFIB 141. NO NEW ORDERS.
--- NOTE | 2017-08-13 08:50 | NUR ---
NOTIFIED DR LEONARDO PATIENT HR AFIB 140'S-150'S AND STARTED ON JENNIFER. NO NEW ORDERS FROM
--- NOTE | 2017-08-13 09:00 | NUR ---
PT UNABLE TO TOLERATE SEDATION VACATION. BECOMES TACHYCARDIC, TACHYPNEIC AND AGITATED. CONTINUING DIP AT 40MCG
--- NOTE | 2017-08-13 09:05 | NUR ---
PAULETTE FELICIANO RN AT BEDSIDE.
[2017-08-13 09:28] LABS: LYMPHOCYTES % (MANUAL) 1 % (16-48); MONOCYTES % (MANUAL) 1 % (0-11.0); NEUTROPHILS % (MANUAL) 98 (42-76)
--- NOTE | 2017-08-13 09:30 | NUR ---
DR AWARE PATIENT ECG WILL CHANGE FROM ABIG CONTROLLED/UNCONTROLLED, NSR, V PACING, AND INDY
--- NOTE | 2017-08-13 09:30 | NUR ---
DR ESTRELLA AT BEDSIDE. UPDATED ON PATIENT CURRENT VS, DANETTE RODRIGUEZ; PAUSED AT THIS TIME BP STABLE WILL MONITOR PATIENT IS ON HD. PER MD TITRATE FI02 FOR O2 SAT 92% OR GREATER.
--- NOTE | 2017-08-13 10:00 | NUR ---
DR JEAN AT BEDSIDE. PER DR JEAN REMOVE PATIENT HD CATH S/P HD. DO NOT CULTURE TIP. AND DO GET A BLOOD CULTURE S/P REMOVAL.
--- NOTE | 2017-08-13 10:00 | NUR ---
PT UNDERGOING HD. UNABLE TO REPOSITION AT THIS TIME.
--- NOTE | 2017-08-13 11:23 | NUR ---
HD COMPLETED NO FLUID REMOVED. PER DR JEAN ORDER HD RN HIPOLITO REMOVED HD CATH. PATIENT BLEEDING SCANTLY FROM SITE. PRESSURE APPLIED AND SAND BAG APPLIED TO ASSIST WITH CLOTTING. MONITORING
--- NOTE | 2017-08-13 12:00 | NUR ---
right fem no bleeding noted. will continue to monitor. dressing clean dry and intact
--- NOTE | 2017-08-13 13:52 | NUR ---
PER DR ESTRELLA ORDER PATIENT FI02 TITRATED TO 50%; WILL MONITOR O2 SAT. 100% AT THIS TIME
[2017-08-13 15:42] LABS: ABG BASE EXCESS 3.4 mmol/L; ABG OXYGEN SATURATION 96.7 % (92.0-98.5); ABG PH 7.425 (7.350-7.450); ABG PO2 101.2 mmHg (75.0-100.0); AaDO2 205.8 mmHg; COHb 0.3 % (0.5-1.5); MetHb 0.7 % (0.0-1.5); O2Hb 95.7 % (94.0-97.0); PEEP,BG 12 cm H2O; SITE, ABG Right Radial
--- NOTE | 2017-08-13 15:46 | NUR ---
POST ABG RESULTS PEEP LOWERED TO [address] PELEG
--- NOTE | 2017-08-13 16:23 | NUR ---
PT BP STABLE AT THIS TIME OFF JENNIFER. CONTINUING TO MONITOR. 100% WITH PEEP 10, FIO2 50%
--- NOTE | 2017-08-13 18:51 | NUR ---
ALL DUE MEDS GIVEN AND ALL NEEDS MET. PATIENT MAP 65 SBP 103 AT THIS TIME. TOLERATING VENT 100%. MINIMAL RESIDUAL NOTED TUBE FEEDING. SKIN CARE RENDERED FREQUENTLY. STOOL IS MORE FORMED THAN A WEEK AGO. PATIENT V PACING AT 60. SAFETY PRECAUTIONS IN PLACE. OLD HD CATH SITE CLEAN DRY AND NO BLEEDING NOTED. FC IN PLACE DRAINING TO GRAVITY. HOB ELEVATED. CARE ENDORSED TO ROCIO MCFADDEN FOR BHARATH
--- NOTE | 2017-08-13 19:30 | NUR ---
CAT AND DOG BATHER INITIAL NOTES RECEIVED PATIENT SEDATED. NO S/S OF PAIN OR DISCOMFORT. VENT DEPENDENT WITH VENT SETTINGS AC 20, TV 400, FIO2 50%, PEEP 10. NO RESPIRATORY DISTRESS NOTED. SKIN WARM AND DRY TO TOUCH. ON TELE MONITOR APACING. WITH F/C PATENT AND INTACT, DRAINING BY GRAVITY. WITH OGT PATENT AND INTACT, IN PLACE, TOLERATING GTF, NO RESIDUAL NOTED. WITH JOSE PICC LINE PATENT AND INTACT, DIPRIVAN AT 40MCG/KG/MIN, TKO, AND CVP MONITORING. HOB ELEVATED. SIDE RAILS UP AND LOCKED. TURNED AND REPOSITIONED. BED KEPT AT LOWEST POSITION. WILL CONTINUE TO MONITOR.
[2017-08-13] MEDS: LATANOPROST EYE DROP 0.005% 2.5 ML BOTTLE OP SCH (22:05)
[2017-08-13] MEDS: MICAFUNGIN SODIUM 100 MG in IV NS 0.9% 100 ML IV SCH (22:05)
[2017-08-13] MEDS: INSULIN GLARGINE, 100 UNIT/ML CARTRIDGE SQ SCH (22:07)
--- NOTE | 2017-08-13 22:52 | NUR ---
PT RECEIVED INTUBATED 7.5 ETT SECURED AT 22CM AT THE LIP. NO RESP DISTRESS. PT TOLERATING VENT SETTINGS. SX'D FOR MOD AMT OF THICK GALLOWAY SECRETIONS. VENT ALARMS SET AND AUDIBLE. AMBU BAG AT BEDSIDE. WILL CONTINUE TO MONITOR. Addendum: 08/13/17 at 2255 by FELIX BUENO RT Amended: Links added.
[2017-08-14] VITALS (47 sets, daily range): BP systolic 81–120; BP diastolic 31–62
[2017-08-14] MEDS: PROPOFOL 100 ML IV PRN ×5 (01:30→22:28)
[2017-08-14 04:55] LABS: HEMATOCRIT 22 % (33-45); HEMOGLOBIN 7.2 g/dL (11.5-14.8); LYMPHOCYTES # (AUTO) 0.4 /CMM (0.8-4.8); LYMPHOCYTES % (AUTO) 1.2 % (20.0-44.0); MEAN CORPUSCULAR HGB CONC 33 g/dl (31.0-36.0); MEAN CORPUSCULAR VOLUME 89 fL (82-100); MONOCYTES # (AUTO) 0.9 /CMM (0.1-1.30); MONOCYTES % (AUTO) 3.1 % (2.0-12.0); NEUTROPHILS # (AUTO) 28.2 /CMM (1.8-8.9); NEUTROPHILS % (AUTO) 95.7 % (43.0-81.0); PLATELET COUNT (AUTO) 107 /CMM (150-450); RDW COEFFICIENT OF VARIATION 17.8 (11.5-15.0); RED BLOOD CELL COUNT(AUTO) 2.46 MIL/uL (4.0-5.2); WHITE BLOOD COUNT (AUTO) 29.5 K/uL (4.3-11.0)
[2017-08-14] MEDS: MEROPENEM 500 MG in IV NS 0.9% 50 ML IV SCH (05:16)
[2017-08-14] MEDS: BLOOD SUGAR DIAGNOSTIC 1 EACH STRIP IN SCH ×4 (05:20→23:48)
[2017-08-14] MEDS: INSULIN REGULAR, HUMAN 100 UNIT/ML 3 ML VIAL SQ PRN ×4 (05:21→23:50)
[2017-08-14 05:24] LABS: CALCIUM, SERUM 8.7 mg/dL (8.5-10.1); CARBON DIOXIDE 29 mmol/L (21-32); CHLORIDE 101 mmol/L (98-107); CREATININE 1.6 mg/dL (0.6-1.3); GLUCOSE 194 mg/dL (74-106); PHOSPHORUS 5.1 mg/dL (2.5-4.9); POTASSIUM 3.8 mmol/L (3.5-5.1); SODIUM SERUM 137 mmol/L (136-145)
[2017-08-14 05:27] LABS: UREA NITROGEN, BLOOD 87 mg/dL (7-18)
--- NOTE | 2017-08-14 07:10 | NUR ---
RN INITIAL NOTES RECEIVED PT INTUBATED, ON VENT. NO RESPIRATORY DISTRESS NOTED. NO SOB NOTED. NO SIGNS OF PAIN NOTED. PT SEDATED. ON DIPRIVAN AT 40MCG/KG/MIN. JOSE PICC ON PLACE. PT ON CVP MONITORING. FC IN PLACE. REPOSITIONED. BLE ELEVATED. WILL MONITOR.
--- NOTE | 2017-08-14 07:34 | NUR ---
UNIVERSITY RELATIONS DIRECTOR CLOSING NOTE NO SIGNIFICANT CHANGES OVERNIGHT. ALL DUE MEDS GIVEN. NO RESPIRATORY DISTRESS NOTED, TOLERATING CURRENT VENT SETTINGS. TOLERATING GTF. KEPT CLEAN AND DRY. WOUND TX PROVIDED. TURNED AND REPOSITIONED Q2 AND PRN. HOB ELEVATED. SIDE RAILS UP AND LOCKED. BED KEPT AT LOWEST POSITION. CONTINUITY OF CARE ENDORSED TO AM NURSE.
[2017-08-14] MEDS: PROSOURCE / PROSTAT (PYXIS) 30 ML UDC GT SCH (08:21)
[2017-08-14] MEDS: AMIODARONE HCL 200 MG TABLET PO SCH ×3 (08:21→16:37)
[2017-08-14] MEDS: LEVOTHYROXINE SODIUM 50 MCG TABLET GT SCH (08:21)
[2017-08-14] MEDS: SEVELAMER CARBONATE 0.8 GM POWD.PACK GT SCH ×3 (08:21→17:24)
[2017-08-14] MEDS: VIT B CMPLX 3/FA/VIT C/BIOTIN 1 TAB TABLET PO SCH (08:22)
[2017-08-14] MEDS: CHOLECALCIFEROL 1,000 UNIT TABLET (VIT D3) PO SCH (08:22)
[2017-08-14] MEDS: PANTOPRAZOLE 40 MG VIAL IV SCH (08:22)
[2017-08-14] MEDS: ALLOPURINOL 100 MG TABLET GT SCH (08:22)
[2017-08-14] MEDS: methylPREDNISolone SOD SUCC 125 MG/2ML VIAL IV SCH ×3 (08:22→16:37)
[2017-08-14 08:34] LABS: ABG BASE EXCESS 2.5 mmol/L; ABG OXYGEN SATURATION 95.3 % (92.0-98.5); ABG PCO2 46.9 mmHg (35.0-45.0); ABG PH 7.391 (7.350-7.450); ABG PO2 87.4 mmHg (75.0-100.0); AaDO2 216.3 mmHg; COHb 0.3 % (0.5-1.5); MetHb 0.7 % (0.0-1.5); O2Hb 94.3 % (94.0-97.0); PEEP,BG 10 cm H2O; SITE, ABG Right Femoral; VENT MODE, BG AC 20 400 +10 50%; VT, ABG 400 mL
--- NOTE | 2017-08-14 09:00 | NUR ---
RN NOTES SEEN AND EXAMINED BY DR. ESTRELLA. PT REMAINS INTUBATAED. TOLERATING VENT WELL. NO RESPIRATORY DISTRESS NOTED. MD AWARE OF CURRENT LAB VALUES AND CXR RESULT. TITRATING DIPRIVAN FOR SEDATION VACATION. MD ORDERED TO DECREASE PEEP TO 8. WILL CLOSELY MONITOR.
--- NOTE | 2017-08-14 11:00 | NUR ---
RN NOTES SEEN AND EXAMINED BY DR. MOFFETT. PT INTUBATED. OFF SEDATION. A/OX, FOLLOWS SIMPLE COMMANDS. MD AWARE OF WBC 29.5, HGB 7.2, HCT 22, PLATELET 107. NO SIGNS OF BLEEDING NOTED. BUN 87, CREA 1.6, PJOS 5.1. PT ON LINE HOLIDAY. LAST HD YESTERDAY. WILL CONTINUE TO MONITOR.
[2017-08-14] MEDS: NEPRO 1,000 ML BOTTLE GT PRN (12:10)
--- NOTE | 2017-08-14 16:32 | NUR ---
PT RECEIVED ORALLY INTUBATED ON MECHANICAL VENT W/ SETTINGS PER MD. VENT ALARMS CHECKED AND AUDIBLE, VENT IN RED OUTLET, AMBUBAG AT BEDSIDE. PT SX'ED AND LAVAGED PRN. BREATH SOUNDS EQUAL, DIMINISHED. NO RESP DISTRESS NOTED. PLAN IS TO CONTINUE CURRENT CARE UNDER MD ORDERS AND MONITOR FOR CHANGES. Addendum: 08/14/17 at 1634 by HARDIK PEDRO RT Amended: Links added.
--- NOTE | 2017-08-14 18:36 | NUR ---
RN CLOSING NOTES NO SIGNIFICANT CHANGE NOTED. PT REMAINS INTUBATED. NO RESPIRATORY DISTRESS NOTED. NO SOB NOTED. PICC IN PLACE. PT ON DIPRIVAN, TITRATED ACCORDINGLY. FC IN PLACE. KEPT CLEAN AND DRY. TX PROVIDED ORDERED. BLE ELEVATED. REPOSITIONED Q2. WILL ENDORSE FOR CONTINUITY OF CARE.
--- NOTE | 2017-08-14 19:30 | NUR ---
TELECASTING ENGINEER INITIAL NOTES RECEIVED PATIENT SEDATED. NO S/S OF PAIN OR DISCOMFORT. WITH ETT 7.5CM/22CM AT THE LIP. VENT DEPENDENT, VENT SETTINGS AC 20, TV 400, FIO2 50%, PEEP 8. NO RESPIRATORY DISTRESS NOTED. SKIN WARM AND DRY TO TOUCH. ON TELE MONITOR SR. WITH F/C PATENT AND INTACT, DRAINING BY GRAVITY. WITH OGT PATENT AND INTACT, IN PLACE, TOLERATING GTF, NO RESIDUAL NOTED. WITH JOSE PICC LINE PATENT AND INTACT, DIPRIVAN AT 35MCG/KG/MIN, TKO, AND CVP MONITORING. HOB ELEVATED. SIDE RAILS UP AND LOCKED. TURNED AND REPOSITIONED. BED KEPT AT LOWEST POSITION. WILL CONTINUE TO MONITOR.
--- NOTE | 2017-08-14 21:30 | NUR ---
PT RECEIVED INTUBATED 7.5 ETT SECURED AT 22CM AT THE LIP. NO RESP DISTRESS. PT TOLERATING VENT SETTINGS. SX'D FOR MOD AMT OF THICK GALLOWAY SECRETIONS. VENT ALARMS SET AND AUDIBLE. AMBU BAG AT BEDSIDE. WILL CONTINUE TO MONITOR. Addendum: 08/14/17 at 2131 by FELIX BUENO RT Amended: Links added.
[2017-08-14] MEDS: MICAFUNGIN SODIUM 100 MG in IV NS 0.9% 100 ML IV SCH (22:27)
[2017-08-14] MEDS: LATANOPROST EYE DROP 0.005% 2.5 ML BOTTLE OP SCH (22:29)
[2017-08-14] MEDS: INSULIN GLARGINE, 100 UNIT/ML CARTRIDGE SQ SCH (22:31)
[2017-08-15] VITALS (54 sets, daily range): BP systolic 75–120; BP diastolic 28–70
--- NOTE | 2017-08-15 01:38 | NUR ---
BANKING OFFICER NOTE NOTED PATIENT SINUS TACH 130'S-140'S, NOT SUSTAINED. DIPRIVAN INCREASED PER PROTOCOL. WILL CONTINUE TO MONITOR.
[2017-08-15] MEDS: PROPOFOL 100 ML IV PRN ×4 (03:29→18:24)
[2017-08-15 05:09] LABS: CARBON DIOXIDE 27 mmol/L (21-32); CHLORIDE 98 mmol/L (98-107); CREATININE 2.5 mg/dL (0.6-1.3); GLUCOSE 211 mg/dL (74-106); SODIUM SERUM 134 mmol/L (136-145)
[2017-08-15 05:15] LABS: UREA NITROGEN, BLOOD 113 mg/dL (7-18)
[2017-08-15] MEDS: BLOOD SUGAR DIAGNOSTIC 1 EACH STRIP IN SCH ×4 (05:46→23:36)
[2017-08-15] MEDS: INSULIN REGULAR, HUMAN 100 UNIT/ML 3 ML VIAL SQ PRN ×4 (05:47→23:41)
--- NOTE | 2017-08-15 07:46 | NUR ---
SALES ACCOUNT SPECIALIST CLOSING NOTE NO SIGNIFICANT CHANGES OVERNIGHT. ALL DUE MEDS GIVEN. NO RESPIRATORY DISTRESS NOTED, TOLERATING CURRENT VENT SETTINGS. TOLERATING GTF. KEPT CLEAN AND DRY. WOUND TX PROVIDED. TURNED AND REPOSITIONED Q2 AND PRN. HOB ELEVATED. SIDE RAILS UP AND LOCKED. BED KEPT AT LOWEST POSITION. CONTINUITY OF CARE ENDORSED TO AM NURSE.
[2017-08-15 07:49] LABS: LYMPHOCYTES # (AUTO) 0.6 /CMM (0.8-4.8); LYMPHOCYTES % (AUTO) 1.9 % (20.0-44.0); MEAN CORPUSCULAR HGB CONC 34 g/dl (31.0-36.0); MEAN CORPUSCULAR VOLUME 89 fL (82-100); MONOCYTES # (AUTO) 0.2 /CMM (0.1-1.30); MONOCYTES % (AUTO) 0.5 % (2.0-12.0); NEUTROPHILS # (AUTO) 28.4 /CMM (1.8-8.9); NEUTROPHILS % (AUTO) 97.6 % (43.0-81.0); PLATELET COUNT (AUTO) 115 /CMM (150-450); RDW COEFFICIENT OF VARIATION 17.7 (11.5-15.0); RED BLOOD CELL COUNT(AUTO) 2.31 MIL/uL (4.0-5.2); WHITE BLOOD COUNT (AUTO) 29.1 K/uL (4.3-11.0)
[2017-08-15 07:52] LABS: HEMATOCRIT 20 % (33-45)
[2017-08-15] MEDS: PANTOPRAZOLE 40 MG VIAL IV SCH (08:16)
[2017-08-15] MEDS: VIT B CMPLX 3/FA/VIT C/BIOTIN 1 TAB TABLET PO SCH (08:16)
[2017-08-15] MEDS: PROSOURCE / PROSTAT (PYXIS) 30 ML UDC GT SCH (08:16)
[2017-08-15] MEDS: AMIODARONE HCL 200 MG TABLET PO SCH ×3 (08:17→16:46)
[2017-08-15] MEDS: methylPREDNISolone SOD SUCC 125 MG/2ML VIAL IV SCH ×3 (08:17→16:45)
[2017-08-15] MEDS: ALLOPURINOL 100 MG TABLET GT SCH (08:17)
[2017-08-15] MEDS: LEVOTHYROXINE SODIUM 50 MCG TABLET GT SCH (08:17)
[2017-08-15] MEDS: SEVELAMER CARBONATE 0.8 GM POWD.PACK GT SCH ×3 (08:17→17:19)
[2017-08-15] MEDS: CHOLECALCIFEROL 1,000 UNIT TABLET (VIT D3) PO SCH (08:17)
--- NOTE | 2017-08-15 08:20 | NUR ---
RN NOTES SEEN AND EXAMINED BY DR. MOFFETT. PT REMAINS INTUBATED, ON VENT. NO RESPIRATORY DISTRESS NOTED. PT ON DIPRIVAN, TITRATING FOR SEDATION VACATION. MD AWARE OF LAB VALUES: WBC 29.1. AFEBRILE. ON IV ATB. NO ASE NOTED. HGB 7, HCT 20, PLATELET 115. NO SIGNS OF ACTIVE BLEEDING NOTED. BUN 113, CREA 2.5. MD AWARE OF LOW OUTPUT. PT ON LINE HOLIDAY. LAST HD 08/13/17. WILL CONTINUE TO MONITOR.
--- NOTE | 2017-08-15 09:15 | NUR ---
RN NOTES SEEN AND EXAMINED BY DR. ESTRELLA. PT REMAINS INTUBATED, ON VENT. PT TOLERATES VENT WELL. SETTINGS FOLLOWS: AC20, TV400, FIO2 50%, PEEP +5. PT OFF SEDATION. PT AWAKE, A/O. ABLE TO FOLLOW SIMPLE COMMANDS. ABG DONE, AWARE OF RESULT. WILL CONTINUE TO MONITOR.
--- NOTE | 2017-08-15 09:30 | NUR ---
RN NOTES SEEN AND EXAMINED BY DR. JEAN. AWARE OF CURRENT LAB VALUES. PT ON LINE HOLIDAY. LAST HD 08/13/17. PER MD, MIGHT RESTART HD TIMI OR SUN DEPENDS ON LAB VALUES. WILL CONTINUE TO MONITOR.
[2017-08-15 09:39] LABS: ABG BASE EXCESS 1.1 mmol/L; ABG OXYGEN SATURATION 91.7 % (92.0-98.5); ABG PH 7.393 (7.350-7.450); ABG PO2 66.6 mmHg (75.0-100.0); AaDO2 240.4 mmHg; COHb 0.1 % (0.5-1.5); MetHb 0.8 % (0.0-1.5); O2Hb 90.9 % (94.0-97.0); PEEP,BG 5 cm H2O; SITE, ABG Right Radial
[2017-08-15] MEDS: NEPRO 1,000 ML BOTTLE GT PRN (12:14)
--- NOTE | 2017-08-15 18:30 | NUR ---
RN CLOSING NOTES NO SIGNIFICANT CHANGE NOTED. PT REMAINS INTUBATED. NO RESPIRATORY DISTRESS NOTED. NO SOB NOTED. PICC IN PLACE. PT ON DIPRIVAN, TITRATED ACCORDINGLY. TOLERATING GTF WELL. FC IN PLACE. KEPT CLEAN AND DRY. TX PROVIDED ORDERED. BLE ELEVATED. REPOSITIONED Q2. WILL ENDORSE FOR CONTINUITY OF CARE.
--- NOTE | 2017-08-15 19:30 | NUR ---
CHURCH COMMUNICATIONS ADMINISTRATOR INITIAL NOTES RECEIVED PATIENT SEDATED. NO S/S OF PAIN OR DISCOMFORT. WITH ETT 7.5CM/22CM AT THE LIP. VENT DEPENDENT, VENT SETTINGS AC 20, TV 400, FIO2 55%, PEEP 5. NO RESPIRATORY DISTRESS NOTED. SKIN WARM AND DRY TO TOUCH. ON TELE MONITOR SR. WITH F/C PATENT AND INTACT, DRAINING BY GRAVITY. WITH OGT PATENT AND INTACT, IN PLACE, TOLERATING GTF, NO RESIDUAL NOTED. WITH JOSE PICC LINE PATENT AND INTACT, DIPRIVAN AT 40MCG/KG/MIN, TKO, AND CVP MONITORING. HOB ELEVATED. SIDE RAILS UP AND LOCKED. TURNED AND REPOSITIONED. BED KEPT AT LOWEST POSITION. WILL CONTINUE TO MONITOR.
--- NOTE | 2017-08-15 20:03 | NUR ---
PT RECEIVED INTUBATED 7.5 ETT SECURED AT 22CM AT THE LIP. NO RESP DISTRESS. PT TOLERATING VENT SETTINGS. SX'D FOR MOD AMT OF THICK GALLOWAY SECRETIONS. VENT ALARMS SET AND AUDIBLE. AMBU BAG AT BEDSIDE. WILL CONTINUE TO MONITOR. Addendum: 08/15/17 at 2002 by FELIX BUENO RT Amended: Links added.
[2017-08-15] MEDS: INSULIN GLARGINE, 100 UNIT/ML CARTRIDGE SQ SCH (22:09)
[2017-08-15] MEDS: LATANOPROST EYE DROP 0.005% 2.5 ML BOTTLE OP SCH (22:11)
[2017-08-15] MEDS: MICAFUNGIN SODIUM 100 MG in IV NS 0.9% 100 ML IV SCH (22:11)
[2017-08-16] VITALS (53 sets, daily range): BP systolic 85–112; BP diastolic 31–59
[2017-08-16] MEDS: PROPOFOL 100 ML IV PRN ×3 (00:51→17:22)
[2017-08-16 04:40] LABS: LYMPHOCYTES # (AUTO) 0.5 /CMM (0.8-4.8); LYMPHOCYTES % (AUTO) 1.8 % (20.0-44.0); MEAN CORPUSCULAR HGB CONC 34 g/dl (31.0-36.0); MEAN CORPUSCULAR VOLUME 88 fL (82-100); MONOCYTES # (AUTO) 0.6 /CMM (0.1-1.30); MONOCYTES % (AUTO) 2.1 % (2.0-12.0); NEUTROPHILS # (AUTO) 27.8 /CMM (1.8-8.9); NEUTROPHILS % (AUTO) 96.1 % (43.0-81.0); PLATELET COUNT (AUTO) 125 /CMM (150-450); RDW COEFFICIENT OF VARIATION 18.2 (11.5-15.0); RED BLOOD CELL COUNT(AUTO) 2.22 MIL/uL (4.0-5.2); WHITE BLOOD COUNT (AUTO) 28.9 K/uL (4.3-11.0)
[2017-08-16 04:57] LABS: CALCIUM, SERUM 8.5 mg/dL (8.5-10.1); CARBON DIOXIDE 26 mmol/L (21-32); CHLORIDE 98 mmol/L (98-107); CREATININE 2.9 mg/dL (0.6-1.3); GLUCOSE 188 mg/dL (74-106); POTASSIUM 3.9 mmol/L (3.5-5.1); SODIUM SERUM 134 mmol/L (136-145)
[2017-08-16 05:03] LABS: UREA NITROGEN, BLOOD 137 mg/dL (7-18)
[2017-08-16 05:30] LABS: HEMATOCRIT 20 % (33-45); HEMOGLOBIN 6.6 g/dL (11.5-14.8)
[2017-08-16 05:47] LABS: BAND % (MANUAL) 1 % (0.0-5.0); LYMPHOCYTES % (MANUAL) 4 % (16-48); METAMYELOCYTES % 2 % (0-0); MONOCYTES % (MANUAL) 1 % (0-11.0); MYELOCYTES % 2 % (0-0); NEUTROPHILS % (MANUAL) 90 (42-76)
--- NOTE | 2017-08-16 05:53 | NUR ---
REAL ESTATE CLOSING COORDINATOR NOTE RECEIVED CRITICAL LAB H/H 6.09/19. RELAYED TO [facility]RERA PERSAUD WITH ORDER TO TRANSFUSE ONE UNIT PRBC. NOTED.
[2017-08-16] MEDS: BLOOD SUGAR DIAGNOSTIC 1 EACH STRIP IN SCH ×3 (05:59→17:22)
[2017-08-16] MEDS: INSULIN REGULAR, HUMAN 100 UNIT/ML 3 ML VIAL SQ PRN ×3 (06:00→18:39)
--- NOTE | 2017-08-16 07:26 | NUR ---
WELDING MACHINE ASSEMBLER CLOSING NOTE NO SIGNIFICANT CHANGES OVERNIGHT. ALL DUE MEDS GIVEN. NO RESPIRATORY DISTRESS NOTED, TOLERATING CURRENT VENT SETTINGS. TOLERATING GTF. KEPT CLEAN AND DRY. WOUND TX PROVIDED. F/C PATENT AND INTACT, DRAINING BY GRAVITY, JOSE PICC LINE PATENT AND INTACT, WITH CVP MONITORING, TKO AND DIPRIVAN RUNNING. TURNED AND REPOSITIONED Q2 AND PRN. HOB ELEVATED. SIDE RAILS UP AND LOCKED. BED KEPT AT LOWEST POSITION. CONTINUITY OF CARE ENDORSED TO AM NURSE.
--- NOTE | 2017-08-16 08:00 | NUR ---
DIPRIVAN DRIP TITRATING DOWN FOR VENT WEANING.
[2017-08-16] MEDS: ALLOPURINOL 100 MG TABLET GT SCH (08:04)
[2017-08-16] MEDS: LEVOTHYROXINE SODIUM 50 MCG TABLET GT SCH (08:05)
[2017-08-16] MEDS: methylPREDNISolone SOD SUCC 125 MG/2ML VIAL IV SCH ×3 (08:05→17:22)
[2017-08-16] MEDS: CHOLECALCIFEROL 1,000 UNIT TABLET (VIT D3) PO SCH (08:05)
[2017-08-16] MEDS: AMIODARONE HCL 200 MG TABLET PO SCH ×3 (08:05→17:21)
[2017-08-16] MEDS: VIT B CMPLX 3/FA/VIT C/BIOTIN 1 TAB TABLET PO SCH (08:05)
[2017-08-16] MEDS: SEVELAMER CARBONATE 0.8 GM POWD.PACK GT SCH ×3 (08:05→17:21)
[2017-08-16] MEDS: PANTOPRAZOLE 40 MG VIAL IV SCH (08:06)
[2017-08-16] MEDS: PROSOURCE / PROSTAT (PYXIS) 30 ML UDC GT SCH (08:06)
--- NOTE | 2017-08-16 09:00 | NUR ---
h/h-. verified with dr. kumar blood transfusion orders.Orders noted for 2 units, to give only 1 unit per md.
--- NOTE | 2017-08-16 09:15 | NUR ---
PATIENT FULLY AWAKE ON DIPRIVAN DRIP AT 10 MCG/KG/MIN-NODS HEAD YES/NO APPROPRIATELY. VENT SETTINGS CHANGES BY RT-TO SIMV MODE. BLOOD TRANSFUSION INITIATED PER PROTOCOL.
--- NOTE | 2017-08-16 10:00 | NUR ---
MELVIN NOT TOLERATING VENT WEANING. RR 40'S. DR. ESTRELLA AT BEDSIDE TO EVALUATE-PATIENT PLACED BACK ON FULL VENT SUPPORT PER .
--- NOTE | 2017-08-16 12:00 | NUR ---
BLOOD TRANSFUSION COMPLETED WITHOUT TRANSFUSION REACTION.
--- NOTE | 2017-08-16 16:00 | NUR ---
AFEBRILE. BP STABLE OFF PRESSORS. DIPRIVAN AT 25 MCG/MIN-SEDATED, EASILY AROUSABLE TO TOUCH. NO DISTRESS. COMPLETE PM CARE, SKIN/WOUND CARE DONE.
[2017-08-16] MEDS: Z GUARD REMEDY 2 OZ OINT TP PRN (17:22)
[2017-08-16] MEDS: NEPRO 1,000 ML BOTTLE GT PRN (18:00)
--- NOTE | 2017-08-16 18:30 | NUR ---
DPOOA/ALBINA FRAUSTO VISITING. UPDATED WITH PATIENT CODITION AND PLAN OF CARE.
--- NOTE | 2017-08-16 20:00 | NUR ---
RN INITIAL NOTES RECEIVED PATIENT SEDATED. NO S/S OF PAIN OR DISCOMFORT. WITH ETT 7.5CM/22CM AT THE LIP. VENT DEPENDENT, VENT SETTINGS AC 20, TV 400, FIO2 55%, PEEP 5. NO RESPIRATORY DISTRESS NOTED. SKIN WARM AND DRY TO TOUCH. ON TELE MONITOR SR. WITH F/C PATENT AND INTACT, DRAINING BY GRAVITY. WITH OGT PATENT AND INTACT, IN PLACE, TOLERATING GTF, NO RESIDUAL NOTED. WITH JOSE PICC LINE PATENT AND INTACT, DIPRIVAN AT 25MCG/KG/MIN, TKO, AND CVP MONITORING. HOB ELEVATED. SIDE RAILS UP AND LOCKED. TURNED AND REPOSITIONED. BED KEPT AT LOWEST POSITION. WILL CONTINUE TO MONITOR.
--- NOTE | 2017-08-16 20:13 | NUR ---
PT RECEIVED ORALLY INTUBATED 7.5 ETT SECURED @22 CM AT THE LIP, WITH NOTED SETTINGS, AC 20,400,PEEP 5 , 55% . VENT ALARMS SET AND AUDIBLE. AMBU BAG AT [facility]. SUCTIONED SMALL AMOUNT OF WHITE THICK SECRETIONS. NO RESPIRATORY DISTRESS NOTED AT THIS TIME. WILL CONTINUE TO MONITOR.
[2017-08-16] MEDS: INSULIN GLARGINE, 100 UNIT/ML CARTRIDGE SQ SCH (21:24)
[2017-08-16] MEDS: LATANOPROST EYE DROP 0.005% 2.5 ML BOTTLE OP SCH (21:27)
[2017-08-17] VITALS (74 sets, daily range): BP systolic 90–126; BP diastolic 28–71
[2017-08-17] MEDS: MICAFUNGIN SODIUM 100 MG in IV NS 0.9% 100 ML IV SCH ×3 (00:17→23:15)
[2017-08-17] MEDS: PROPOFOL 100 ML IV PRN ×3 (00:17→19:44)
[2017-08-17] MEDS: BLOOD SUGAR DIAGNOSTIC 1 EACH STRIP IN SCH ×5 (00:25→23:55)
[2017-08-17] MEDS: INSULIN REGULAR, HUMAN 100 UNIT/ML 3 ML VIAL SQ PRN ×4 (00:27→17:32)
[2017-08-17 05:16] LABS: HEMATOCRIT 24 % (33-45); LYMPHOCYTES # (AUTO) 0.4 /CMM (0.8-4.8); LYMPHOCYTES % (AUTO) 1.6 % (20.0-44.0); MEAN CORPUSCULAR HGB CONC 33 g/dl (31.0-36.0); MEAN CORPUSCULAR VOLUME 90 fL (82-100); MONOCYTES # (AUTO) 0.2 /CMM (0.1-1.30); MONOCYTES % (AUTO) 1.1 % (2.0-12.0); NEUTROPHILS # (AUTO) 22.1 /CMM (1.8-8.9); NEUTROPHILS % (AUTO) 97.3 % (43.0-81.0); PLATELET COUNT (AUTO) 114 /CMM (150-450); RED BLOOD CELL COUNT(AUTO) 2.69 MIL/uL (4.0-5.2); WHITE BLOOD COUNT (AUTO) 22.7 K/uL (4.3-11.0)
[2017-08-17 06:04] LABS: CALCIUM, SERUM 8.5 mg/dL (8.5-10.1); CARBON DIOXIDE 24 mmol/L (21-32); CHLORIDE 95 mmol/L (98-107); CREATININE 3.4 mg/dL (0.6-1.3); GLUCOSE 175 mg/dL (74-106); MAGNESIUM 2.4 mg/dL (1.8-2.4); PHOSPHORUS 7.3 mg/dL (2.5-4.9); POTASSIUM 4.4 mmol/L (3.5-5.1); SODIUM SERUM 134 mmol/L (136-145)
[2017-08-17 06:08] LABS: BAND % (MANUAL) 3 % (0.0-5.0); LYMPHOCYTES % (MANUAL) 2 % (16-48); MONOCYTES % (MANUAL) 1 % (0-11.0); NEUTROPHILS % (MANUAL) 94 (42-76)
[2017-08-17 06:11] LABS: UREA NITROGEN, BLOOD 163 mg/dL (7-18)
--- NOTE | 2017-08-17 08:00 | NUR ---
PATIENT ON PROPOFOL DRIP AT 25MCG/KG/MIN AND DOES HAVE OCCASSIONAL EYE OPENING. HEART RATE IS SR ON MONITOR 70S. NO VASOACTIVE MEDICATIONS. cvp LINE READING 8. REPOSITIONED TO COMFORT. NAHOMY CAMPBELL RN
[2017-08-17] MEDS: LEVOTHYROXINE SODIUM 50 MCG TABLET GT SCH (08:21)
[2017-08-17] MEDS: ALLOPURINOL 100 MG TABLET GT SCH (08:21)
[2017-08-17] MEDS: SEVELAMER CARBONATE 0.8 GM POWD.PACK GT SCH ×3 (08:21→17:28)
[2017-08-17] MEDS: VIT B CMPLX 3/FA/VIT C/BIOTIN 1 TAB TABLET PO SCH (08:21)
[2017-08-17] MEDS: CHOLECALCIFEROL 1,000 UNIT TABLET (VIT D3) PO SCH (08:22)
[2017-08-17] MEDS: AMIODARONE HCL 200 MG TABLET PO SCH ×3 (08:22→16:39)
[2017-08-17] MEDS: PANTOPRAZOLE 40 MG VIAL IV SCH (08:23)
[2017-08-17] MEDS: methylPREDNISolone SOD SUCC 125 MG/2ML VIAL IV SCH ×3 (08:23→16:38)
[2017-08-17] MEDS: PROSOURCE / PROSTAT (PYXIS) 30 ML UDC GT SCH (08:26)
--- NOTE | 2017-08-17 13:04 | NUR ---
PATIENT BS 154, AND REGULAR INSULIN 2 UNITS GIVEN PER SLINGING SCALE PER DO. FAMILY MEMBER AT BEDSIDE, AND GIVEN PRIVACY TO VISIT. NAHOMY CAMPBELL RN
--- NOTE | 2017-08-17 16:00 | NUR ---
DR MOJICA PLACES HEMODIALYSIS CATHETER LEFT GROIN. PATIENT WILL HAVE DIALYSIS TENTATIVE TOMORROW. NAHOMY CAMPBELL RN
--- NOTE | 2017-08-17 18:00 | NUR ---
PATIENT BS 210 AND REGULAR INSULIN GIVEN PER SLIDING SCALE PER DO. SEE FLOW SHEET FOR DOSAGE. PATIENT HAS BEEN HAVING FREQUENT LOOSE STOOLS, AND DARK COLOR. PATIENT CONSENT SIGNED PER SON EARLIER TODAY FOR EGD IN MORNING. NPO AFTER MIDNIGHT. NAHOMY CAMPBELL RN
--- NOTE | 2017-08-17 19:54 | NUR ---
ICU/RN RECEIVED PT ON VENT VIA ORAL ETT,W/EYES OPEN,TRACKS.PROPOFOL INCREASED TO 25MCG/KG/MIN.REPOSITIONED TO RT. SIDE.DENIES PAIN.
--- NOTE | 2017-08-17 20:09 | NUR ---
PT RCVD INTUBATED 7.5 ETT SECURED @ 22CM @ LIP. PT GREG MECHANICAL VENT SETTINGS. SX'D PT. AMBU BAG AT BEDSIDE. VENT PLUGGED INTO RED OUTLET. VENT ALARMS ARE ON AND AUDIBLE. WILL CONTINUE TO MONITOR. Addendum: 08/17/17 at 2012 by LIVIA PROCTOR RT Amended: Links added.
[2017-08-17] MEDS: INSULIN GLARGINE, 100 UNIT/ML CARTRIDGE SQ SCH (22:55)
--- NOTE | 2017-08-17 23:00 | NUR ---
ICU/RN DIPRIVAN DECREASED TO 20MCG/KG/MIN.SBP=90MMHG.
[2017-08-17] MEDS: LATANOPROST EYE DROP 0.005% 2.5 ML BOTTLE OP SCH (23:16)
[2017-08-18] VITALS (93 sets, daily range): BP systolic 66–155; BP diastolic 34–70
[2017-08-18] MEDS: INSULIN REGULAR, HUMAN 100 UNIT/ML 3 ML VIAL SQ PRN ×3 (00:02→23:41)
--- NOTE | 2017-08-18 02:00 | NUR ---
ICU/RN TUBE FEEDING DC'D,PT. FOR EGD TODAY.
[2017-08-18] MEDS: IV NS 0.9% 250 ML IV PRN (04:16)
[2017-08-18] MEDS: PROPOFOL 100 ML IV PRN ×3 (04:16→23:33)
[2017-08-18] MEDS: BLOOD SUGAR DIAGNOSTIC 1 EACH STRIP IN SCH ×3 (06:21→18:09)
--- NOTE | 2017-08-18 06:30 | NUR ---
ICU/RN HD STARTED BY NURYS CHAN
--- NOTE | 2017-08-18 07:05 | NUR ---
ICU/RN IN TO SEE PT,CONDITION REPORT GIVEN,CVP TO BE DC'D ORDERED
--- NOTE | 2017-08-18 07:42 | NUR ---
ICU/RN DIPRIVAN DECREASED TO 20MCG/KG/MIN SBP=90MMHG.
--- NOTE | 2017-08-18 08:00 | NUR ---
PATIENT TO HAVE EGD THIS AFTERNOON, AND SURGICAL CHECK LIST STARTED. PATIENT HAS BEEN NPO SINCE 1 AM. PATIENT ON PROPOFOL DRIP AT 20 MCG/KG/MIN. NAHOMY CAMPBELL RN
[2017-08-18] MEDS: PANTOPRAZOLE 40 MG VIAL IV SCH (09:37)
[2017-08-18] MEDS: SEVELAMER CARBONATE 0.8 GM POWD.PACK GT SCH ×3 (09:38→17:57)
[2017-08-18] MEDS: AMIODARONE HCL 200 MG TABLET PO SCH ×3 (09:39→18:00)
[2017-08-18] MEDS: CHOLECALCIFEROL 1,000 UNIT TABLET (VIT D3) PO SCH (09:40)
[2017-08-18] MEDS: VIT B CMPLX 3/FA/VIT C/BIOTIN 1 TAB TABLET PO SCH (09:40)
[2017-08-18] MEDS: LEVOTHYROXINE SODIUM 50 MCG TABLET GT SCH (09:40)
[2017-08-18] MEDS: methylPREDNISolone SOD SUCC 125 MG/2ML VIAL IV SCH ×3 (09:59→17:58)
[2017-08-18] MEDS: PROSOURCE / PROSTAT (PYXIS) 30 ML UDC GT SCH (10:03)
[2017-08-18] MEDS: ALLOPURINOL 100 MG TABLET GT SCH (10:04)
--- NOTE | 2017-08-18 10:15 | NUR ---
PATIENT TO HAVE PROCEDURE, AND PROPOFOL DECREASED TO 10MCG/KG/MIN. PATIENT DOES EYE OPENING ON TACTILE STIMULATION. NAHOMY CAMPBELL RN
[2017-08-18 10:22] LABS: HEMATOCRIT 25 % (33-45); HEMOGLOBIN 8.2 g/dL (11.5-14.8); LYMPHOCYTES # (AUTO) 0.3 /CMM (0.8-4.8); LYMPHOCYTES % (AUTO) 1.2 % (20.0-44.0); MEAN CORPUSCULAR HGB CONC 33 g/dl (31.0-36.0); MEAN CORPUSCULAR VOLUME 89 fL (82-100); MONOCYTES # (AUTO) 0.5 /CMM (0.1-1.30); MONOCYTES % (AUTO) 2.2 % (2.0-12.0); NEUTROPHILS # (AUTO) 22.3 /CMM (1.8-8.9); NEUTROPHILS % (AUTO) 96.6 % (43.0-81.0); PLATELET COUNT (AUTO) 119 /CMM (150-450); RDW COEFFICIENT OF VARIATION 17.1 (11.5-15.0); RED BLOOD CELL COUNT(AUTO) 2.81 MIL/uL (4.0-5.2); WHITE BLOOD COUNT (AUTO) 23.1 K/uL (4.3-11.0)
[2017-08-18 10:26] LABS: CALCIUM, SERUM 8.7 mg/dL (8.5-10.1); CARBON DIOXIDE 28 mmol/L (21-32); CHLORIDE 101 mmol/L (98-107); CREATININE 1.9 mg/dL (0.6-1.3); GLUCOSE 113 mg/dL (74-106); POTASSIUM 3.4 mmol/L (3.5-5.1); SODIUM SERUM 140 mmol/L (136-145)
[2017-08-18 10:29] LABS: UREA NITROGEN, BLOOD 80 mg/dL (7-18)
[2017-08-18 10:36] LABS: INR 0.92 (0.87-1.13)
[2017-08-18 10:39] LABS: BAND % (MANUAL) 3 % (0.0-5.0); LYMPHOCYTES % (MANUAL) 1 % (16-48); MONOCYTES % (MANUAL) 3 % (0-11.0); NEUTROPHILS % (MANUAL) 93 (42-76)
--- NOTE | 2017-08-18 12:00 | NUR ---
PROPOFOL DRIP DECREASED TO 10 MCG/KG/MIN DUE TO LOW SBP IN THE 70S. THE PATIENT HR INCREASED TO 130'S ATRIAL FIBRILLATION. PATIENT DOES EYE OPENING HOWEVER PROPOFOL INCREASED BACK TO 20 MCG/KG/MIN. NAHOMY CAMPBELL RN
--- NOTE | 2017-08-18 13:45 | NUR ---
PATIENT TO HAVE EGD, AND HR 140'S AND PROCEDURE CANCELLED DUE TO PATIENT NOT BEING STABLE. NAHOMY CAMPBELL RN
--- NOTE | 2017-08-18 16:00 | NUR ---
PATIENT INCONT OF STOOL, CLEANED, WOUND CARE DONE, AND LINENS CHANGED. REPOSITIONED TO COMFORT. NAHOMY CAMPBELL RN
--- NOTE | 2017-08-18 18:00 | NUR ---
PATIENT BS 156, AND REGULAR INSULIN 2 UNITS GIVEN PER SLIDING SCALE PER DO. PATIENT SBP MID 80'S OBSERVED ON MONITOR. NAHOMY CAMPBELL RN
--- NOTE | 2017-08-18 19:00 | NUR ---
ICU/RN RECEIVED PT ON VENT VIA ORAL ETT.PT ON SUPINE POSITION PT SBP=82MMHG.ON DIPRIVAN DRIP AT 20MCG/KG/MIN.SEDATED,OPENS EYES TO TOUCH,DOES NOT FOLLOW COMMANDS.UPPER EXTREMITIES EDEMATOUS RTARM>LEFT ARM.HD CATH VIA LT FEMORAL INTACT.
[2017-08-18] MEDS: LATANOPROST EYE DROP 0.005% 2.5 ML BOTTLE OP SCH (22:06)
[2017-08-18] MEDS: INSULIN GLARGINE, 100 UNIT/ML CARTRIDGE SQ SCH (22:13)
[2017-08-18] MEDS: MICAFUNGIN SODIUM 100 MG in IV NS 0.9% 100 ML IV SCH (23:29)
[2017-08-19] VITALS (98 sets, daily range): BP systolic 87–151; BP diastolic 34–110
--- NOTE | 2017-08-19 01:00 | NUR ---
ICU/RN SUCTIONED FOR SCANT AMT.PINK-TINGED SECRETIONS FROM ETT AND MODERATE ORAL SECRETIONS.ORAL CARE DONE.
[2017-08-19] MEDS: IV NS 0.9% 250 ML IV PRN (03:32)
[2017-08-19 05:01] LABS: HEMATOCRIT 23 % (33-45); HEMOGLOBIN 7.5 g/dL (11.5-14.8); LYMPHOCYTES # (AUTO) 0.2 /CMM (0.8-4.8); LYMPHOCYTES % (AUTO) 1.2 % (20.0-44.0); MEAN CORPUSCULAR HGB CONC 34 g/dl (31.0-36.0); MEAN CORPUSCULAR VOLUME 89 fL (82-100); MONOCYTES # (AUTO) 0.3 /CMM (0.1-1.30); MONOCYTES % (AUTO) 1.7 % (2.0-12.0); NEUTROPHILS # (AUTO) 18.4 /CMM (1.8-8.9); NEUTROPHILS % (AUTO) 97.1 % (43.0-81.0); PLATELET COUNT (AUTO) 107 /CMM (150-450); RDW COEFFICIENT OF VARIATION 17.4 (11.5-15.0); RED BLOOD CELL COUNT(AUTO) 2.51 MIL/uL (4.0-5.2); WHITE BLOOD COUNT (AUTO) 18.9 K/uL (4.3-11.0)
[2017-08-19 05:22] LABS: ALANINE AMINOTRANSFERASE 25 U/L (12-78); ALBUMIN 2.1 g/dL (3.4-5.0); ALKALINE PHOSPHATASE 178 U/L (46-116); ASPARTATE AMINOTRANSFERASE 21 U/L (15-37); BILIRUBIN,TOTAL 0.6 mg/dL (0.2-1.0); CALCIUM, SERUM 8.5 mg/dL (8.5-10.1); CARBON DIOXIDE 26 mmol/L (21-32); CHLORIDE 98 mmol/L (98-107); CREATININE 2.9 mg/dL (0.6-1.3); GLUCOSE 161 mg/dL (74-106); PHOSPHORUS 6.8 mg/dL (2.5-4.9); POTASSIUM 4.3 mmol/L (3.5-5.1); SODIUM SERUM 136 mmol/L (136-145); TOTAL PROTEIN, SERUM 5.1 g/dL (6.4-8.2)
[2017-08-19 05:31] LABS: UREA NITROGEN, BLOOD 112 mg/dL (7-18)
[2017-08-19] MEDS: BLOOD SUGAR DIAGNOSTIC 1 EACH STRIP IN SCH ×5 (05:42→23:03)
[2017-08-19] MEDS: INSULIN REGULAR, HUMAN 100 UNIT/ML 3 ML VIAL SQ PRN ×3 (05:46→22:43)
[2017-08-19] MEDS: PROPOFOL 100 ML IV PRN ×2 (08:09→17:28)
[2017-08-19] MEDS: SEVELAMER CARBONATE 0.8 GM POWD.PACK GT SCH ×3 (08:10→17:24)
[2017-08-19] MEDS: LEVOTHYROXINE SODIUM 50 MCG TABLET GT SCH (08:10)
--- NOTE | 2017-08-19 08:30 | NUR ---
PATIENT REMAINS ON PROPOFOL DRIP AT 20 MCG/KG/MIN AND RESTING QUIETLY. VS-SBP STABLE. PATIENT ON VENT, AND SETTINGS CHANGED PER RT PER DO. NAHOMY CAMPBELL RN
[2017-08-19] MEDS: methylPREDNISolone SOD SUCC 125 MG/2ML VIAL IV SCH (09:15)
[2017-08-19] MEDS: PANTOPRAZOLE 40 MG VIAL IV SCH (09:15)
[2017-08-19] MEDS: AMIODARONE HCL 200 MG TABLET PO SCH ×3 (09:16→17:23)
[2017-08-19] MEDS: CHOLECALCIFEROL 1,000 UNIT TABLET (VIT D3) PO SCH (09:18)
[2017-08-19] MEDS: VIT B CMPLX 3/FA/VIT C/BIOTIN 1 TAB TABLET PO SCH (09:18)
[2017-08-19] MEDS: ALLOPURINOL 100 MG TABLET GT SCH (09:18)
[2017-08-19] MEDS: PROSOURCE / PROSTAT (PYXIS) 30 ML UDC GT SCH (09:20)
--- NOTE | 2017-08-19 09:30 | NUR ---
HIPOLITO CHANPRINT TRAFFIC MANAGER NURSE AT BEDSIDE, STARTING DIALYSIS, AND I DID GIVE HIM MORNING LAB RESULTS. HD STARTED AND IN PROGRESS PER MD ORDERS. NAHOMY CAMPBELL RN
[2017-08-19] MEDS: *INSULIN REGULAR(HUMULIN R)HUM 100 UNIT/ML VIAL SQ PRN (11:40)
--- NOTE | 2017-08-19 12:00 | NUR ---
PATIENT BS 153, AND REGULAR INSULIN 3 UNITS GIVEN PER SLIDING SCALE PER DO. PATIENT WITH LOOSE STOOL, CLEANED WOUND CARE DONE TO THE TARYN ANAL AREA. NAHOMY CAMPBELL RN
--- NOTE | 2017-08-19 12:10 | NUR ---
PATIENT RECEIVING HD, AND 1 LITER TAKEN OFF. RECEIVED REPORT FROM THE DIALYSIS NURSE. VSS, HR 70'S, AND SBP > 100. NAHOMY CAMPBELL RN
--- NOTE | 2017-08-19 12:16 | NUR ---
PER DR ESRTELLA PEEP LOWERED TO 8 AND FIO2 TITRATED TO 50% RN MELISSA NOTIFIED Addendum: 08/19/17 at 1217 by ALVINO HOWE RT Amended: Links added.
[2017-08-19] MEDS: methylPREDNISolone SOD SUCC 40 MG/ML VIAL IV SCH ×2 (12:52→17:24)
--- NOTE | 2017-08-19 13:00 | NUR ---
PATIENT FAMILY JETT AND HIS SISTER AT BEDSIDE VISITING WITH PATIENT AND I UPDATED ON PRESENT CONDITION, AND TO MEET WITH DR ESTRELLA TOMORROW, BETWEEN 3 - AND 5PM FOR PATIENT - FAMILY CONFERENCE FOR UPDATE ON PRESENT CONDITION. NAHOMY CAMPBELL RN
--- NOTE | 2017-08-19 15:00 | NUR ---
FAMILY AT BEDSIDE VISITING WITH PATIENT, AND PATIENT WITH INCONT OF LOOSE BROWN STOOL, CLEANED AND WOUND CARE DONE. POSITIONED TO COMFORT. NAHOMY CAMPBELL RN
--- NOTE | 2017-08-19 20:00 | NUR ---
received pt from day shift, calmly sedated on Diprivan at 20mcg, SR, on the vent, intubated, lungs diminished, OG to feeding, tolerates well, f/c low output HD pt, v/s stable, no pain, pt turned and repositioned.
--- NOTE | 2017-08-19 22:12 | NUR ---
PT RECEIVED INTUBATED ON [facility] VENT WITH NOTED SETTING. ETT PATENT AND SECURE VIA ANCHOR FAST. VENT PLUGGED INTO RED OUTLET. ALARMS SET AND AUDIBLE. DISCONNECT ALARMS CHECKED. AMBU BAG AT BEDSIDE. TOLERATING VENT AT THIS TIME Addendum: 08/19/17 at 2212 by REBEKAH SMITH RT Amended: Links added.
[2017-08-19] MEDS: INSULIN GLARGINE, 100 UNIT/ML CARTRIDGE SQ SCH (22:42)
[2017-08-19] MEDS: LATANOPROST EYE DROP 0.005% 2.5 ML BOTTLE OP SCH (22:48)
[2017-08-20] VITALS (85 sets, daily range): BP systolic 78–178; BP diastolic 25–93
--- NOTE | 2017-08-20 00:43 | NUR ---
pt is resting in the bed, sedated on Diprivan at 20mcg, SR, v/s stable, no pain, pt turned and repositioned q2hrs.
[2017-08-20] MEDS: PROPOFOL 100 ML IV PRN ×4 (02:47→22:09)
--- NOTE | 2017-08-20 04:23 | NUR ---
pt is resting in the bed, no acute distress overnight, SR, sedated on Diprivan at 30mcg, NPO after midnight, v/s stable, no pain, pt cleaned, changed and repositioned q2hrs.
[2017-08-20 05:12] LABS: EOSINOPHILS % (AUTO) 0.1 % (0.0-6.0); HEMATOCRIT 21 % (33-45); HEMOGLOBIN 7.1 g/dL (11.5-14.8); LYMPHOCYTES # (AUTO) 0.3 /CMM (0.8-4.8); LYMPHOCYTES % (AUTO) 1.4 % (20.0-44.0); MEAN CORPUSCULAR HGB CONC 33 g/dl (31.0-36.0); MEAN CORPUSCULAR VOLUME 90 fL (82-100); MONOCYTES # (AUTO) 0.3 /CMM (0.1-1.30); MONOCYTES % (AUTO) 1.5 % (2.0-12.0); NEUTROPHILS # (AUTO) 18.2 /CMM (1.8-8.9); PLATELET COUNT (AUTO) 105 /CMM (150-450); RDW COEFFICIENT OF VARIATION 18.4 (11.5-15.0); RED BLOOD CELL COUNT(AUTO) 2.38 MIL/uL (4.0-5.2); WHITE BLOOD COUNT (AUTO) 18.8 K/uL (4.3-11.0)
[2017-08-20 05:23] LABS: CALCIUM, SERUM 8.8 mg/dL (8.5-10.1); CARBON DIOXIDE 27 mmol/L (21-32); CHLORIDE 99 mmol/L (98-107); CREATININE 2.4 mg/dL (0.6-1.3); GLUCOSE 139 mg/dL (74-106); MAGNESIUM 2.1 mg/dL (1.8-2.4); PHOSPHORUS 5.7 mg/dL (2.5-4.9); POTASSIUM 4.3 mmol/L (3.5-5.1); SODIUM SERUM 135 mmol/L (136-145)
[2017-08-20 05:33] LABS: UREA NITROGEN, BLOOD 92 mg/dL (7-18)
[2017-08-20] MEDS: BLOOD SUGAR DIAGNOSTIC 1 EACH STRIP IN SCH ×4 (05:35→23:15)
[2017-08-20 05:58] LABS: BAND % (MANUAL) 10 % (0.0-5.0); LYMPHOCYTES % (MANUAL) 1 % (16-48); MONOCYTES % (MANUAL) 1 % (0-11.0); NEUTROPHILS % (MANUAL) 88 (42-76)
[2017-08-20] MEDS ORDERED: ANESTHESIA TRAY IN PYXIS 1 EA TRAY MC ONE (06:47)
--- NOTE | 2017-08-20 07:15 | NUR ---
RECEIVED PATIENT. SEDATED ON DIP AT 30 MOVES TO PAINFUL STIMULI. VS STABLE. NPO PENDING EGD OGT CLAMPED. ETT 7.08/21. JOSE PICC LINE IN PLACE CLEAN AND DRY. LEFT FEM HD CATH IN PLACE; HD YESTERDAY 08/19 WITH 1 L OUT. SAFETY PRECAUTIONS IN PLACE, HOB ELEVATED. WILL ROUND PRN
[2017-08-20] MEDS: LEVOTHYROXINE SODIUM 50 MCG TABLET GT SCH (07:30)
[2017-08-20] MEDS: SEVELAMER CARBONATE 0.8 GM POWD.PACK GT SCH ×3 (07:42→17:02)
[2017-08-20] MEDS: methylPREDNISolone SOD SUCC 40 MG/ML VIAL IV SCH ×3 (08:38→16:01)
[2017-08-20] MEDS: PANTOPRAZOLE 40 MG VIAL IV SCH (08:38)
[2017-08-20] MEDS: Z GUARD REMEDY 2 OZ OINT TP PRN ×3 (08:39→15:35)
[2017-08-20] MEDS: ALLOPURINOL 100 MG TABLET GT SCH (09:00)
[2017-08-20] MEDS: AMIODARONE HCL 200 MG TABLET PO SCH ×3 (09:00→16:01)
[2017-08-20] MEDS: CHOLECALCIFEROL 1,000 UNIT TABLET (VIT D3) PO SCH (09:00)
[2017-08-20] MEDS: VIT B CMPLX 3/FA/VIT C/BIOTIN 1 TAB TABLET PO SCH (09:00)
--- NOTE | 2017-08-20 09:00 | NUR ---
SPOKE WITH JOHN IN SURGICAL UNIT CONFIRMED THEY WILL BE IN BEFORE NOON
--- NOTE | 2017-08-20 09:47 | NUR ---
MANUAL BP NOTED 82/36. NOTIFIED DR LEONARDO. PER MD RICKETTS TO START PATIENT ON JENNIFER FOR SBP UNDER 90. Addendum: 08/20/17 at 0954 by MARISELA PAPPAS RN ATTEMPTING TO DECREASE DIPROVAN. RUNNING AT 25MCG/HR
--- NOTE | 2017-08-20 10:00 | NUR ---
DR MOFFETT AT BEDSIDE. UPDATED ON PATIENT CONDITION, VS, AND LABS. MD AWARE OF BLOOD PRESSURE AND AGREES TO START ON JENNIFER. PER MD GIVE 1 UNIT PRBC WITH HD TODAY IF POSSIBLE. NO ACTIVE S/S BLEEDING NOTED.
[2017-08-20] MEDS: PHENYLEPHRINE 40 MG in IV D5W 250 ML IV PRN (10:15)
[2017-08-20] MEDS: PROSOURCE / PROSTAT (PYXIS) 30 ML UDC GT SCH (10:23)
--- NOTE | 2017-08-20 10:27 | NUR ---
PAULETTE FELICIANO RN AT BEDSIDE.
--- NOTE | 2017-08-20 11:07 | NUR ---
PT BP STABLE. TOLERATING HD. JENNIFER ON HOLD WILL MONITOR Addendum: 08/20/17 at 1112 by MARISELA PAPPAS RN INCORRECT NOTE. PATIENT ON 40MCG/MIN JENNIFER. WILL CONTINUE TO TITRATE PER PROTOCOL
--- NOTE | 2017-08-20 11:15 | NUR ---
DR WHITE AT BEDSIDE. PER MD FELIZ BRADSHAW CATH. OBTAIN CX, AND UA PRIOR TO DC. MD AWARE PATIENT WITH EXCORIATION ON TARYN AREA.
--- NOTE | 2017-08-20 13:45 | NUR ---
CALLED LAB TO CHECK IF UNIT OF BLOOD READY..
--- NOTE | 2017-08-20 14:43 | NUR ---
MESSAGE TO JACKLYN WITH DR MELARA TO F/U IF EGD WILL BE COMPLETED TODAY [facility] UNABLE TO GIVE TIME.
--- NOTE | 2017-08-20 15:04 | NUR ---
NOTIFIED DR LEONARDO PATIENT IS NOW AFIB 100-115. CONFIRMED WITH JACKLYN EGD IS CANCELLED TODAY. OK TO RESUME MEDICATIONS AND TUBE FEEDING.
--- NOTE | 2017-08-20 15:14 | NUR ---
NO NEW ORDERS PER DR LEONARDO. CONTINUE TO AMIO
[2017-08-20] MEDS: NEPRO 1,000 ML BOTTLE GT PRN (15:25)
--- NOTE | 2017-08-20 15:44 | NUR ---
DR ESTRELLA AT BEDSIDE. SPEAKING WITH PATIENT DAUGHTER.
[2017-08-20 15:47] LABS: APPEARANCE,URINE CLOUDY (CLEAR); BILIRUBIN,URINE 1+ (NEGATIVE); BLOOD, URINE 3+ Ery/uL (NEGATIVE); COLOR,URINE DARK YELLO (YELLOW); KETONES,URINE NEGATIVE (NEGATIVE); LEUKOCYTE ESTERASE ,URINE 2+ (NEGATIVE); NITRITE, URINE NEGATIVE (NEGATIVE); PH,URINE 6.5 (5.0-8.0); PROTEIN,URINE 3+ mg/dl (NEGATIVE); UGLUCOSE NEGATIVE (NEGATIVE); UROBILINOGEN,URINE 0.2 EU/dL (0.2)
[2017-08-20 17:29] LABS: BACTERIA,URINE Many /HPF (None Seen); RBC,URINE TOO NUMEROUS TO COUN /HPF (0-2); SQUAMOUS EPITHELIAL CELL,UR Few /HPF (None Seen); WBC,URINE TOO NUMEROUS TO COUN /HPF (0-3); YEAST,URINE Many /HPF (None Seen)
--- NOTE | 2017-08-20 18:03 | NUR ---
DR LEONARDO AWARE PATIENT AT TIMES PACING 60, NSR, AND AFIB RVR. NO NEW ORDERS. AT THIS TIME PACING 60
--- NOTE | 2017-08-20 18:35 | NUR ---
ALL DUE MEDS GIVEN AND ALL NEEDS MET. PATIENT VS STABLE AT THIS TIME. SON AT BEDSIDE. UPDATED ON PATIENT CONDITION AND EVENTS TODAY. PATIENT TOLERATING BLOOD TX NO ADVERSE REACTIONS. TOLERATING TUBE FEEDING. VENT STABLE NO CHANGE. PATIENT DIAPERED. SAFETY PRECAUTIONS IN PLACE. WILL ENDORSE CARE TO RN FOR BHARATH
--- NOTE | 2017-08-20 21:00 | NUR ---
LIBRARY ASSISTANT - REC'D PT.INTUBATED AND SEDATED ON DIPRIVAN GTT. AT 30 MCG/KG/MIN. PT.IS EASILY AROUSABLE ON SEDATION VACATION-IMMED. AFTER TURNING OFF DIP.GTT. PT. NEEDS DOCK BUILDER. SBP'S CAN BE LABILE. HR/BASELINE AFIB, OCC. GOING INTO SR/PACING. LEFT UPPER C/W PACER PALPABLE. ALL PULSES X 4 EXT. ARE PALPABLE/WEAK. PITTING EDEMA TO EXT. X 4. AFEBRILE. PT. HAS A LEFT FEM. HD CATH INTACT. SUDHIR TL PICC LINE HAS ALL 3 PORTS PATENT TO FLUSH, BUT SLUGGISH. 0.9%NS INFUSING AT TKO & THE DIPRIVAN GTT. SOME PERINEAL EXCORIATION NOTED. BRADSHAW CATH TO GRAVITY W/MOD.UOP. PT.IS A HD PT. DIALYSIS DONE TODAY W/NOTHING REMOVED. CONT. TO MONITOR CLOSELY. CONT.POC.
[2017-08-20] MEDS: LATANOPROST EYE DROP 0.005% 2.5 ML BOTTLE OP SCH (22:40)
[2017-08-20] MEDS: INSULIN GLARGINE, 100 UNIT/ML CARTRIDGE SQ SCH (22:41)
[2017-08-20] MEDS: MICAFUNGIN SODIUM 100 MG in IV NS 0.9% 100 ML IV SCH (22:42)
[2017-08-20] MEDS: *INSULIN REGULAR(HUMULIN R)HUM 100 UNIT/ML VIAL SQ PRN (23:15)
[2017-08-21] VITALS (63 sets, daily range): BP systolic 94–154; BP diastolic 30–86
[2017-08-21] MEDS: PROPOFOL 100 ML IV PRN ×4 (02:06→20:09)
[2017-08-21 04:32] LABS: HEMATOCRIT 27 % (33-45); HEMOGLOBIN 9.4 g/dL (11.5-14.8); LYMPHOCYTES # (AUTO) 0.1 /CMM (0.8-4.8); LYMPHOCYTES % (AUTO) 0.8 % (20.0-44.0); MEAN CORPUSCULAR HGB CONC 35 g/dl (31.0-36.0); MEAN CORPUSCULAR VOLUME 90 fL (82-100); MONOCYTES # (AUTO) 0.2 /CMM (0.1-1.30); MONOCYTES % (AUTO) 1.2 % (2.0-12.0); PLATELET COUNT (AUTO) 106 /CMM (150-450); RDW COEFFICIENT OF VARIATION 17.5 (11.5-15.0); RED BLOOD CELL COUNT(AUTO) 3.01 MIL/uL (4.0-5.2); WHITE BLOOD COUNT (AUTO) 19.4 K/uL (4.3-11.0)
[2017-08-21 04:49] LABS: CALCIUM, SERUM 8.8 mg/dL (8.5-10.1); CARBON DIOXIDE 26 mmol/L (21-32); CHLORIDE 99 mmol/L (98-107); CREATININE 2.1 mg/dL (0.6-1.3); GLUCOSE 208 mg/dL (74-106); MAGNESIUM 2.1 mg/dL (1.8-2.4); PHOSPHORUS 5.7 mg/dL (2.5-4.9); POTASSIUM 4.5 mmol/L (3.5-5.1); SODIUM SERUM 134 mmol/L (136-145); UREA NITROGEN, BLOOD 74 mg/dL (7-18)
[2017-08-21 05:33] LABS: BAND % (MANUAL) 10 % (0.0-5.0); MONOCYTES % (MANUAL) 1 % (0-11.0); NEUTROPHILS % (MANUAL) 89 (42-76)
[2017-08-21] MEDS: BLOOD SUGAR DIAGNOSTIC 1 EACH STRIP IN SCH ×4 (06:39→23:13)
[2017-08-21] MEDS: INSULIN REGULAR, HUMAN 100 UNIT/ML 3 ML VIAL SQ PRN ×3 (06:39→17:40)
--- NOTE | 2017-08-21 06:50 | NUR ---
CENTRIFUGAL WAX MOLDER - COMPLETE BEDBATH ADM. AT 4AM. ORAL,VENT,TARYN,OGT & SKIN CARE RENDERED. DIPRIVAN GTT. CONT.AT 30 MCG/KG/MIN. PT'S HR IS INTERMITTENT BETWEEN V PACING (VS) SR (VS) AFIB. ALL CONT. VERBAL REPORT ENDORSED TO MARISELA CHAN. CONT. POC.
[2017-08-21] MEDS: IV NS 0.9% 250 ML IV PRN (07:06)
--- NOTE | 2017-08-21 07:30 | NUR ---
RECEIVED PATIENT. SEDATED ON DIP AT 30 MOVES TO TOUCH. VS STABLE. TUBE FEEDING ORDERED, NO RESIDUAL NOTED. ETT 7.5. JOSE PICC LINE IN PLACE CLEAN AND DRY. LEFT FEM HD CATH IN PLACE; HD YESTERDAY 08/20 WITH NO FLUIDS OUT. SAFETY PRECAUTIONS IN PLACE, HOB ELEVATED. WILL ROUND PRN
[2017-08-21] MEDS: PANTOPRAZOLE 40 MG VIAL IV SCH (08:29)
[2017-08-21] MEDS: VIT B CMPLX 3/FA/VIT C/BIOTIN 1 TAB TABLET PO SCH (08:29)
[2017-08-21] MEDS: LEVOTHYROXINE SODIUM 50 MCG TABLET GT SCH (08:29)
[2017-08-21] MEDS: methylPREDNISolone SOD SUCC 40 MG/ML VIAL IV SCH ×3 (08:29→17:23)
[2017-08-21] MEDS: SEVELAMER CARBONATE 0.8 GM POWD.PACK GT SCH ×3 (08:29→17:23)
[2017-08-21] MEDS: ALLOPURINOL 100 MG TABLET GT SCH (08:29)
[2017-08-21] MEDS: Z GUARD REMEDY 2 OZ OINT TP PRN ×3 (08:29→17:45)
[2017-08-21] MEDS: AMIODARONE HCL 200 MG TABLET PO SCH ×3 (08:30→17:23)
[2017-08-21] MEDS: PROSOURCE / PROSTAT (PYXIS) 30 ML UDC GT SCH (08:30)
[2017-08-21] MEDS: CHOLECALCIFEROL 1,000 UNIT TABLET (VIT D3) PO SCH (08:30)
--- NOTE | 2017-08-21 09:00 | NUR ---
SEDATION VACATION COMPLETED. PATIENT FOLLOWS COMMANDS, NODS Y/N TO QUESTIONS ASKED OF HER. RESUMING DIP PATIENT BECOMES TACHYPNEIC, FROWNING AND KICKS LEGS; APPEARS UNCOMFORTABLE.
--- NOTE | 2017-08-21 09:30 | NUR ---
DR MOFFETT AT BEDSIDE. UPDATED ON PATIENT CONDITION, LABS VS. PER MD OK TO KEEP BRADSHAW CATHETER IN FAMILY IS STATING COMFORT CARE HOWEVER WILL MAKE CONCRETE DECISION ON SUNDAY
--- NOTE | 2017-08-21 12:00 | NUR ---
PICC LINE DRESSING CHANGED. STERILE TECHNIQUE OBSERVED. NO COMPLICATIONS
[2017-08-21] MEDS: NEPRO 1,000 ML BOTTLE GT PRN (14:38)
--- NOTE | 2017-08-21 17:55 | NUR ---
SPOKE WITH DR SLAUGHTER AND UPDATED ON PATIENT BLOOD CX RESULTS. PER MD START PATIENT ON VANCOMYCIN PHARMACY TO DOSE
[2017-08-21] MEDS ORDERED: FEE PK DOSING 1 MIN EA MC ONE (18:11)
--- NOTE | 2017-08-21 18:32 | NUR ---
ALL DUE MEDS GIVEN AND ALL NEEDS MET. PATIENT VS STABLE AT THIS TIME. PATIENT TOLERATING TUBE FEEDING 5ML RESIDUAL. VENT STABLE NO CHANGE. BRADSHAW CATH IN PLACE DRAINING TO GRAVITY. SAFETY PRECAUTIONS IN PLACE. WILL ENDORSE CARE TO RN FOR BHARATH. ETT IN PLACE NO CHANGE. PICC LINE CLEAN DRY, INTACT, PATENT. HOB ELEVATED. NO ADVERSE EVENTS NOTED.
--- NOTE | 2017-08-21 18:45 | NUR ---
RT END OF THE SHIFT REPORT, PT. 77 Y OLD FEMALE REMAIN ORALLY INTUBATED ETT # 7.5 @ 22 CM LIP LINE AND SECURED. ON THE VENT WITH NOTED SETTINGS. PT. REMAIN STABLE VENT ALARMS ARE SET AND AUDIBLE, WITH AMBU BAG AT THE BEDSIDE. 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 VENT IS PLUGGED INTO RED OUTLET. HME CHANGED. B/S BILATERALLY RALES EQUAL CHEST RISE NOTED. SX FOR MODERATE THICK YELLOW THICK SECRETIONS. NO RESPIRATORY DISTRESS NOTED T/O SHIFT, NO CHANGES. WILL CONTINUE TO MONITOR, REPORT WILL PASS TO PM SHIFT. Addendum: 08/21/17 at 1846 by JOHN GORMAN RT Amended: Links added.
[2017-08-21] MEDS ORDERED: VANCOMYCIN 1 GM in IV D5W 250 ML IV ONE (20:00)
--- NOTE | 2017-08-21 21:25 | NUR ---
PT RECEIVED INTUBATED WITH 7.5 ETT SECURED AT 22CM AT THE LIP. NO RESP DISTRESS. PT TOLERATING VENT SETTINGS. SX'D FOR MOD AMT OF THICK YELLOW SECRETIONS. VENT ALARMS SET AND AUDIBLE. AMBU BAG AT BEDSIDE. VENT PLUGGED INTO RED OUTLET. WILL CONTINUE TO MONITOR. Addendum: 08/21/17 at 2127 by FELIX BUENO RT Amended: Links added.
[2017-08-21] MEDS: INSULIN GLARGINE, 100 UNIT/ML CARTRIDGE SQ SCH (22:00)
[2017-08-21] MEDS: LATANOPROST EYE DROP 0.005% 2.5 ML BOTTLE OP SCH (22:41)
[2017-08-21] MEDS: MICAFUNGIN SODIUM 100 MG in IV NS 0.9% 100 ML IV SCH (22:41)
[2017-08-21] MEDS: *INSULIN REGULAR(HUMULIN R)HUM 100 UNIT/ML VIAL SQ PRN (23:12)
[2017-08-22] VITALS (50 sets, daily range): BP systolic 46–154; BP diastolic 28–94
[2017-08-22] MEDS: PROPOFOL 100 ML IV PRN ×2 (02:59→09:28)
[2017-08-22] MEDS: IV NS 0.9% 250 ML IV PRN (03:52)
[2017-08-22 04:26] LABS: EOSINOPHILS % (AUTO) 0.1 % (0.0-6.0); HEMATOCRIT 25 % (33-45); HEMOGLOBIN 8.6 g/dL (11.5-14.8); LYMPHOCYTES # (AUTO) 0.3 /CMM (0.8-4.8); LYMPHOCYTES % (AUTO) 1.9 % (20.0-44.0); MEAN CORPUSCULAR HGB CONC 34 g/dl (31.0-36.0); MEAN CORPUSCULAR VOLUME 91 fL (82-100); MONOCYTES # (AUTO) 0.2 /CMM (0.1-1.30); MONOCYTES % (AUTO) 1.4 % (2.0-12.0); NEUTROPHILS # (AUTO) 16.1 /CMM (1.8-8.9); NEUTROPHILS % (AUTO) 96.6 % (43.0-81.0); PLATELET COUNT (AUTO) 91 /CMM (150-450); RDW COEFFICIENT OF VARIATION 18.1 (11.5-15.0); RED BLOOD CELL COUNT(AUTO) 2.77 MIL/uL (4.0-5.2); WHITE BLOOD COUNT (AUTO) 16.7 K/uL (4.3-11.0)
[2017-08-22 04:42] LABS: CALCIUM, SERUM 8.6 mg/dL (8.5-10.1); CARBON DIOXIDE 25 mmol/L (21-32); CHLORIDE 98 mmol/L (98-107); CREATININE 2.8 mg/dL (0.6-1.3); GLUCOSE 200 mg/dL (74-106); MAGNESIUM 2.2 mg/dL (1.8-2.4); PHOSPHORUS 5.7 mg/dL (2.5-4.9); POTASSIUM 4.6 mmol/L (3.5-5.1); SODIUM SERUM 134 mmol/L (136-145)
[2017-08-22 04:46] LABS: BAND % (MANUAL) 8 % (0.0-5.0); LYMPHOCYTES % (MANUAL) 3 % (16-48); MONOCYTES % (MANUAL) 3 % (0-11.0); NEUTROPHILS % (MANUAL) 86 (42-76)
[2017-08-22 04:52] LABS: UREA NITROGEN, BLOOD 92 mg/dL (7-18)
[2017-08-22] MEDS: INSULIN REGULAR, HUMAN 100 UNIT/ML 3 ML VIAL SQ PRN ×2 (06:00→12:46)
[2017-08-22] MEDS: BLOOD SUGAR DIAGNOSTIC 1 EACH STRIP IN SCH ×2 (06:00→12:38)
--- NOTE | 2017-08-22 07:05 | NUR ---
RN INITIAL NOTES RECEIVED PT INTUBATED, ON VENT. NO RESPIRATORY DISTRESS NOTED. NO SOB NOTED. NO SIGNS OF PAIN NOTED. OG IN PLACE. TOLERATING GTF WELL. JOSE PICC IN PLACE. ON DIPRIVAN AT 40MCG/KG.MIN. PT SEDATED. FC IN PLACE. PT FOR HD TODAY. WILL CALL SON ONCE DR. ESTRELLA COMES REGARDING POSSIBLE CHANGE OF CODE STATUS. WILL CLOSELY MONITOR.
--- NOTE | 2017-08-22 07:48 | NUR ---
RT PATIENT REC'D ORALLY INTUBATED ON [facility] VENT WITH SETTINGS SET BY . VENT ALARMS CHECKED + AUDIBLE. 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 B/S DIMINISHED BILAT. SUCTIONED WITH SMALL AMT OF PALE SEMITHICK SECRETIONS. AMBU BAG AT HOB. Addendum: 08/22/17 at 1420 by ALVINO HOWE RT Amended: Links added.
[2017-08-22] MEDS: PROSOURCE / PROSTAT (PYXIS) 30 ML UDC GT SCH (08:20)
[2017-08-22] MEDS: CHOLECALCIFEROL 1,000 UNIT TABLET (VIT D3) PO SCH (08:20)
[2017-08-22] MEDS: LEVOTHYROXINE SODIUM 50 MCG TABLET GT SCH (08:20)
[2017-08-22] MEDS: PANTOPRAZOLE 40 MG VIAL IV SCH (08:20)
[2017-08-22] MEDS: methylPREDNISolone SOD SUCC 40 MG/ML VIAL IV SCH ×2 (08:20→12:38)
[2017-08-22] MEDS: VIT B CMPLX 3/FA/VIT C/BIOTIN 1 TAB TABLET PO SCH (08:20)
[2017-08-22] MEDS: SEVELAMER CARBONATE 0.8 GM POWD.PACK GT SCH ×2 (08:20→12:38)
[2017-08-22] MEDS: ALLOPURINOL 100 MG TABLET GT SCH (08:22)
[2017-08-22] MEDS ORDERED: NOREPINEPHRINE 8 MG in IV D5W 500 ML IV PRN (09:00)
[2017-08-22] MEDS: AMIODARONE HCL 200 MG TABLET PO SCH ×2 (09:00→12:38)
--- NOTE | 2017-08-22 09:00 | NUR ---
RN NOTES HD STARTED. PT STARTED ON LEVO, SBP 60S. PT OFF DIPRIVAN FOR SEDATION VACATION. WILL CLOSELY MONITOR.
--- NOTE | 2017-08-22 09:30 | NUR ---
RN NOTES SEEN AND EXAMINED BY DR. ESTRELLA. MD AWARE OF CURRENT LAB VALUES AND CXR RESULT. MD HAS A LENGTHY CONVERSATION WITH JETT (SON) OVER THE PHONE REGARDING CHANGE OF CODE STATUS. PER MD, ONCE FAMILY IS HERE. WILL STOP DIPRIVAN, IF COMFORTABLE, EXTUBATE WITH DNR/DNI. IF IN DISTRESS, START MORPHINE AND ATIVAN PRN. WILL CLOSELY MONITOR.
--- NOTE | 2017-08-22 09:40 | NUR ---
RN NOTES SEEN AND EXAMINED BY DR. JEAN. AWARE OF CURRENT LAB VALUES AND CXR RESULT. HD ONGOING. PT ON LEVO. PT RESTARTED ON DIPRIVAN. MD AWARE OF PLAN FOR TODAY. WILL MONITOR.
--- NOTE | 2017-08-22 11:00 | NUR ---
RN NOTES HD DONE. NOTHING REMOVED. TOLERATED WELL. PT REMAINS ON LEVO, WILL TITRATE ACCORDINGLY. WILL CLOSELY MONITOR.
--- NOTE | 2017-08-22 11:30 | NUR ---
RN NOTES SEEN AND EXAMINED BY DR. MOFFETT. PT REMAINS INTUBATED, ON VENT. PT SEDATED, ON DIPRIVAN. PT ON LEVO AT 5MCG/MIN. PT AWARE OF CURRENT LAB VALUES: WBC: 16.7, HGB 8.6, HCT 25, PLATELET 91, BUN 92, CREA 2.8 AND CXR RESULT. HD DONE. NOTIFIED OF EXTUBATION TODAY AROUND NOON. WILL CONTINUE TO MONITOR.
[2017-08-22] MEDS ORDERED: LORAZEPAM INJ 2 MG/ML VIAL IV PRN (13:30)
[2017-08-22] MEDS: MORPHINE SULFATE INJ 2 MG/ML DISP.SYRIN IV ONE ×2 (13:30→14:55)
--- NOTE | 2017-08-22 14:49 | NUR ---
RT PER DR KIRK ORDER PATIENT EXTUBATED AND PLACED ON NRB MASK PER FAMILY WISHES. FAMILY AT BEDSIDE. ROCIO DOBSON AT BEDSIDE. PATIENT PLACED IN COMFORT MEASURES.
[2017-08-22] MEDS ORDERED: MORPHINE SULFATE INJ 2 MG/ML DISP.SYRIN IV ONE (15:00)
--- NOTE | 2017-08-22 15:00 | NUR ---
RN NOTES 1445 DIPRIVAN COMPLETELY OFF. PT EYES OPEN. REACTS TO TACTILE AND PAINFUL STIMULI. PT TACHYPNEIC AND AGITATED. 1449 PT EXTUBATED ORDERED. PT PLACED ON NON-REBREATHER AT 15LPM. HOB ELEVATED. FAMILY AT BEDSIDE. 1506 PT GIVEN MORPHINE 5MG IVP ORDERED. WILL CONTINUE TO MONITOR.FAMILY AT BEDSIDE.
--- NOTE | 2017-08-22 16:31 | NUR ---
RN NOTE PT DNR STATUS, ON COMFORT CARE. FOUND PT APNEIC, ASYSTOLIC. PUPILS FIXED AND DILATED. PRONOUNCED . FAMILY AT BEDSIDE.
--- NOTE | 2017-08-22 17:10 | NUR ---
RN NOTES 1631 PT NOTED ASYSTOLE ON MONITOR. NO RESPIRATORY EFFORT NOTED. PUPILS FIXED AND DILATED. PT DNR/DNI STATUS. PRONOUNCED BY ROCIO PARKER. DR MOFFETT NOTIFIED. 1635 [employer] CALLED PER PROTOCOL. PT NOT A CANDIDATE FOR [employer] DONATION. SPOKE WITH JEANIE. CASE# [id number].FAMILY WILL PROVIDE MORTUARY OF CHOICE.
[2017-08-22] MEDS ORDERED: VANCOMYCIN 500 MG in IV NS 0.9% 100 ML IV PRN (18:00)
--- NOTE | 2017-08-22 19:00 | NUR ---
RN NOTES REMAINS BROUGHT TO [place]. FAMILY AWARE.
== END 2017-08-22 19:01 | disposition expired | DRG 870 ==
LOC: ER 15:38 → ICU 17:03
PROVIDERS: ADMIT Nurse Practitioner Acute Care; ATTEND Nurse Practitioner Acute Care
PROC: 5A09457 Assistance with Respiratory Ventilation, 24-96 Consecutive Hours, Continuous Positive Airway Pressure (ICD-10-PCS; principal; 2017-07-29)
PROC: 5A1955Z Respiratory Ventilation, Greater than 96 Consecutive Hours (ICD-10-PCS; 2017-08-01)
PROC: 0BH17EZ Insertion of Endotracheal Airway into Trachea, Via Natural or Artificial Opening (ICD-10-PCS; 2017-08-01)
PROC: 02HV33Z Insertion of Infusion Device into Superior Vena Cava, Percutaneous Approach (ICD-10-PCS; 2017-08-01)
PROC: B548ZZA Ultrasonography of Superior Vena Cava, Guidance (ICD-10-PCS; 2017-08-01)
PROC: 02HV33Z Insertion of Infusion Device into Superior Vena Cava, Percutaneous Approach (ICD-10-PCS; 2017-08-03)
PROC: B548ZZA Ultrasonography of Superior Vena Cava, Guidance (ICD-10-PCS; 2017-08-03)
PROC: 0JHL3XZ Insertion of Tunneled Vascular Access Device into Right Upper Leg Subcutaneous Tissue and Fascia, Percutaneous Approach (ICD-10-PCS; 2017-08-06)
PROC: 06HM33Z Insertion of Infusion Device into Right Femoral Vein, Percutaneous Approach (ICD-10-PCS; 2017-08-06)
PROC: B54BZZA Ultrasonography of Right Lower Extremity Veins, Guidance (ICD-10-PCS; 2017-08-06)
PROC: 30233N1 Transfusion of Nonautologous Red Blood Cells into Peripheral Vein, Percutaneous Approach (ICD-10-PCS; 2017-08-08)
PROC: 0JHM3XZ Insertion of Tunneled Vascular Access Device into Left Upper Leg Subcutaneous Tissue and Fascia, Percutaneous Approach (ICD-10-PCS; 2017-08-17)
PROC: 06HN33Z Insertion of Infusion Device into Left Femoral Vein, Percutaneous Approach (ICD-10-PCS; 2017-08-17)
PROC: B54CZZA Ultrasonography of Left Lower Extremity Veins, Guidance (ICD-10-PCS; 2017-08-17)
PROC: 0DJ08ZZ Inspection of Upper Intestinal Tract, Via Natural or Artificial Opening Endoscopic (ICD-10-PCS; 2017-08-20)
DX: A41.9 Sepsis, unspecified organism (principal); N17.0 Acute kidney failure with tubular necrosis; Z51.5 Encounter for palliative care; Z66 Do not resuscitate; R65.21 Severe sepsis with septic shock; J15.6 Pneumonia due to other Gram-negative bacteria; J96.02 Acute respiratory failure with hypercapnia; J96.01 Acute respiratory failure with hypoxia; N18.6 End stage renal disease; I50.33 Acute on chronic diastolic (congestive) heart failure; J84.9 Interstitial pulmonary disease, unspecified; I13.2 Hypertensive heart and chronic kidney disease with heart failure and with stage 5 chronic kidney disease, or end stage renal disease; B49 Unspecified mycosis; T82.838A Hemorrhage due to vascular prosthetic devices, implants and grafts, initial encounter; D62 Acute posthemorrhagic anemia; N17.9 Acute kidney failure, unspecified; B19.10 Unspecified viral hepatitis B without hepatic coma; E87.1 Hypo-osmolality and hyponatremia; N39.0 Urinary tract infection, site not specified; E44.1 Mild protein-calorie malnutrition; E11.22 Type 2 diabetes mellitus with diabetic chronic kidney disease; E11.51 Type 2 diabetes mellitus with diabetic peripheral angiopathy without gangrene; I95.3 Hypotension of hemodialysis; I48.0 Paroxysmal atrial fibrillation; E87.5 Hyperkalemia; E03.9 Hypothyroidism, unspecified; I25.10 Atherosclerotic heart disease of native coronary artery without angina pectoris; I25.2 Old myocardial infarction; Z95.2 Presence of prosthetic heart valve; Z95.1 Presence of aortocoronary bypass graft; Z83.3 Family history of diabetes mellitus; Z88.6 Allergy status to analgesic agent; Z79.4 Long term (current) use of insulin; E83.42 Hypomagnesemia; E78.5 Hyperlipidemia, unspecified; G47.33 Obstructive sleep apnea (adult) (pediatric); G89.29 Other chronic pain; H40.9 Unspecified glaucoma; D50.9 Iron deficiency anemia, unspecified; E11.649 Type 2 diabetes mellitus with hypoglycemia without coma; E11.65 Type 2 diabetes mellitus with hyperglycemia; K59.00 Constipation, unspecified; M10.9 Gout, unspecified; Z68.30 Body mass index [BMI] 30.0-30.9, adult; K21.9 Gastro-esophageal reflux disease without esophagitis; E66.01 Morbid (severe) obesity due to excess calories; R26.81 Unsteadiness on feet; I70.0 Atherosclerosis of aorta; R91.1 Solitary pulmonary nodule; Y95 Nosocomial condition; Z99.2 Dependence on renal dialysis; Z79.01 Long term (current) use of anticoagulants; Z79.899 Other long term (current) drug therapy; T38.0X5A Adverse effect of glucocorticoids and synthetic analogues, initial encounter; T45.4X5A Adverse effect of iron and its compounds, initial encounter; Y92.129 Unspecified place in nursing home as the place of occurrence of the external cause; R31.9 Hematuria, unspecified; M85.9 Disorder of bone density and structure, unspecified; R19.7 Diarrhea, unspecified; Y83.9 Surgical procedure, unspecified as the cause of abnormal reaction of the patient, or of later complication, without mention of misadventure at the time of the procedure
CPT/HCPCS: 31720; 36415; 36569; 36600; 71045-TC; 74018; 80048-TC; 80053-TC; 80061-TC; 80202-TC; 81000-TC; 82272-TC; 82553-TC; 82728-TC; 82803-TC; 82962-TC; 83540-TC; 83605-TC; 83735-TC; 83880; 83935-TC; 84100-TC; 84300-TC; 84443-TC; 84478-TC; 84484-TC; 85025-TC; 85610-TC; 85730-TC; 86704; 86705; 86706; 86803; 86850-TC; 86921-TC; 87040-TC; 87070-TC; 87081-TC; 87086-TC; 87281; 87340; 87400; 87449; 87899; 90935-TC; 93307-TC; 94002-TC; 94003-TC; 94640-TC; 94760-TC; 94762-TC; 94799-TC; A4216; A4606; A6253; A6402; A6403; C1750; C1751; C9113; J0282; J0456; J0696; J0885; J1644; J1815; J1940; J2185; J2248; J2270; J2274; J2370; J2405; J2543; J2597; J2765; J2916; J2920; J2930; J3370; J3475; J3480; J3490; J7030; J7040; J7042; J7050; J7060; P9016-BL; P9047; Z7610